=== PATIENT | female | born 1955 | race Hispanic/Latino ===

== ENCOUNTER 2017-04-17 09:19 | Outpatient (CLI) | payer MEDICARE, BC ==
--- NOTE | 2017-04-17 10:46 | RAD ---
TWO VIEWS CHEST: 04/17/2017 HISTORY: Dyspnea. COMPARISON: 03/02/2017 TECHNIQUE: PA and lateral views of the chest obtained. FINDINGS: Two views of the chest demonstrate increased pulmonary vascular congestion, compared to the previous exam. Cardiomegaly is seen. No evidence of effusions seen. IMPRESSION: Pulmonary vascular congestion and diffuse interstitial markings. This may represent changes of layla estive heart failure. There is also apparent dislocation of the right shoulder, suggesting a chronic right shoulder disloc ation. POS: [facility]
== END 2017-04-17 09:20 | disposition home or self-care (01) ==
LOC: RAD 09:19
PROVIDERS: ATTEND Internal Medicine Critical Care Medicine
DX: R06.00 Dyspnea, unspecified (principal); J81.1 Chronic pulmonary edema; J81.0 Acute pulmonary edema
CPT/HCPCS: 71020

== ENCOUNTER 2017-05-18 08:10 | Emergency (ER) | payer MEDICARE, BC | END 2017-05-18 09:31 | disposition home or self-care (01) | LOC: ERS 08:10 | DX: T21.22XA Burn of second degree of abdominal wall, initial encounter (principal); K21.9 Gastro-esophageal reflux disease without esophagitis; J45.909 Unspecified asthma, uncomplicated; G47.30 Sleep apnea, unspecified; I12.0 Hypertensive chronic kidney disease with stage 5 chronic kidney disease or end stage renal disease; N18.6 End stage renal disease; Z99.2 Dependence on renal dialysis; X16.XXXA Contact with hot heating appliances, radiators and pipes, initial encounter | CPT/HCPCS: 99283 ==

== ENCOUNTER 2017-05-30 22:56 | Emergency (ER) | payer MEDICARE, BC | END 2017-05-31 00:24 | disposition home or self-care (01) | LOC: ERS 22:56 | DX: L03.114 Cellulitis of left upper limb (principal); K21.9 Gastro-esophageal reflux disease without esophagitis; J45.909 Unspecified asthma, uncomplicated; I12.0 Hypertensive chronic kidney disease with stage 5 chronic kidney disease or end stage renal disease; N18.6 End stage renal disease; Z99.2 Dependence on renal dialysis | CPT/HCPCS: 99282 ==

== ENCOUNTER 2017-06-13 23:29 | Emergency (ER) | payer MEDICARE, BC | END 2017-06-13 23:58 | disposition home or self-care (01) | LOC: SCSER 23:29 | DX: L03.114 Cellulitis of left upper limb (principal); K21.9 Gastro-esophageal reflux disease without esophagitis; I12.0 Hypertensive chronic kidney disease with stage 5 chronic kidney disease or end stage renal disease; N18.6 End stage renal disease; E55.9 Vitamin D deficiency, unspecified; G47.30 Sleep apnea, unspecified; Z99.2 Dependence on renal dialysis | CPT/HCPCS: 99283 ==

== ENCOUNTER 2017-08-07 12:18 | Outpatient (CLI) | payer MEDICARE, BC | END 2017-08-07 12:19 | disposition home or self-care (01) | LOC: BICCT 12:18 | PROVIDERS: ATTEND Emergency Medicine | DX: M54.5 Low back pain (principal); M47.896 Other spondylosis, lumbar region; Z99.2 Dependence on renal dialysis | CPT/HCPCS: 72131 ==

== ENCOUNTER 2017-08-20 08:12 | Inpatient (IN) | payer MEDICARE, BC ==
--- NOTE | 2017-08-20 09:01 | CT ---
CT OF BRAIN PERFORMED WITHOUT CONTRAST ENHANCEMENT: History: Altered mental status. Speech difficulties. Comparison: 11-04-14 FINDINGS: Ventricular and cisternal system shows fairly age appropriate change. There are no signs of intracere bral hemorrhage or extraaxial fluid collections. Mastoid air cells and visualized sinuses are clear. IMPRESSION: No acute intracranial abnormalities. POS: [facility]
[2017-08-20 09:18] LABS: Mean Corpuscular HGB CONC 30.8 g/dL (32.0-36.0); Mean Corpuscular Hemoglobin 31.2 pg (27.0-31.0); Mean Platelet Volume 8.3 fL (7.4-10.4); Platelet Count 475 thou/uL (130-400); RBC Distribution Width 13.5 % (11.5-14.5); Red Blood Cell (RBC) Count 3.85 mill/uL (4.20-5.40); White Blood Cell (WBC) Count 13.8 thou/uL (4.8-10.8)
--- NOTE | 2017-08-20 09:22 | RAD ---
FRONTAL VIEW CHEST: Date: 08/20/17 COMPARISON: 09/28/16. INDICATION: Dyspnea. FINDINGS: Cardiac silhouette is enlarged with vascular congestion and interstitial edema bilaterally. Slight bl unting of the costophrenic sulci present. There is vascular calcification. Leads overlie the chest li miting detail. IMPRESSION: Evidence of fluid overload. Enlarged cardiac silhouette is present. Correlate for evidence of CHF. POS: [facility]
[2017-08-20 09:25] LABS: CKMB 2.1 ng/mL (0-6.6); Troponin I 0.025 ng/mL (< 0.028)
[2017-08-20 09:32] LABS: ALT (SGPT) 18 U/L (8-55); AST (SGOT) 19 U/L (5-34); Albumin 3.7 g/dL (3.4-4.8); Alkaline Phosphatase 69 U/L (40-150); Anion Gap 19 mmol/L (10-20); BUN (Urea Nitrogen) 34 mg/dL (9.8-20.1); Bilirubin, Total 0.4 mg/dL (0.2-1.2); CK (CPK) 151 U/L (29-168); Calc. Creatinine Clearance 0 mL/min (70-130); Calcium 11.1 mg/dL (7.8-10.44); Carbon Dioxide 28 mmol/L (23-31); Chloride 93 mmol/L (98-107); Estimated GFR-MDRD 5; Globulin 3.2 g/dL (2.4-3.5); Glucose 86 mg/dL (80-115); Lipase 11 U/L (8-78); Potassium 3.8 mmol/L (3.5-5.1); Protein, Total 6.9 g/dL (6.0-8.3); Sodium 136 mmol/L (136-145)
[2017-08-20 09:33] LABS: Band 1 % (5-11); Eosinophils 1 % (0-10); Lymphocytes 22 % (21-51); MDiff Complete? YES; Monocytes 9 % (0-10); Myelocyte 4 % (0-0); Neutrophil 62 % (42-75); Nucleated RBC 1 % (0); PLT Morphology Comment Appears Increased; RBC Morphology Normal
[2017-08-20 12:33] VITALS: BMI 58.6
--- NOTE | 2017-08-20 12:37 | PDOC.FPRHP ---
- History of Present Illness Chief Complaint: WEAKNESS History of Present Illness: 62 yo F w/ PMH incluidng HTN, ESRD, HLD, neuropathy, RICHAR, and morbid obesity. Woke up this morning feeling weak, able to transfer to chair but not walk on her own. She felt weak all over and denies focal weakness. She states she needed help getting out of bed. Weakness started about 10 days ago and has gotten progressively worse. She also notes that she has been having tremors specifically in her arms and legs which is new. She fell 2 times on 4 days ago, one mechanical getting out of bathtub and the other she was sitting down and missed the chair. She has some soreness in the L arm but denies any other pain. She states that she has had increased difficulty with speech both with thinking of what to say and dysarthria. No headaches, nausea, vomiting, or changes in vision. Family notices more confusion as of late. - Allergies/Adverse Reactions Allergies Allergy/AdvReac Type Severity Reaction Status Date / Time adhesive Allergy Verified 08/26/17 13:31 Latex, Natural Rubber Allergy Verified 08/26/17 13:31 levofloxacin [From Levaquin] Allergy Verified 08/26/17 13:31 povidone-iodine Allergy Verified 08/26/17 13:31 [From Betadine] soap [From Betadine] Allergy Verified 08/26/17 13:31 - Home Medications Medication Instructions Recorded Confirmed Type Budesonide-Formoterol [Symbicort 1 puff INH BID 02/28/14 08/26/17 History 160-4.5] Cholecalciferol (Vitamin D3) 2,000 unit PO DAILY 05/28/15 08/26/17 History [Vitamin D3] Montelukast Sodium [Singulair] 10 mg PO DAILY 05/28/15 08/26/17 History Primidone 50 mg PO TID 05/28/15 08/26/17 History Albuterol Sulfate [Proair 90 mcg IH Q6HR PRN 08/20/17 08/26/17 History Respiclick] Benzonatate 100 mg PO Q6HR 08/20/17 08/26/17 History Budesonide 0.5 mg IH BID 08/20/17 08/26/17 History Celecoxib 200 mg PO BID 08/20/17 08/26/17 History Fluticasone Propionate [Flonase 1 spray EA NARE HS 08/20/17 08/26/17 History Nasal [place]] Midodrine HCl [ProAmatine] 2.5 mg PO ASDIR 08/20/17 08/26/17 History Mupirocin 2% Cream [Bactroban 2% 1 applic TP BID 08/20/17 08/26/17 History Cream] Sulfamethoxazole/Trimethoprim 1 tab PO BID 08/20/17 08/26/17 History [Bactrim DS] hydrOXYzine [Atarax] 10 mg PO TID PRN 08/20/17 08/26/17 History predniSONE 2.5 mg PO QAM-WM 08/20/17 08/26/17 History Atorvastatin Calcium [Lipitor] 80 mg PO HS 30 Days #30 tab 08/21/17 08/26/17 Rx Clopidogrel Bisulfate [Plavix] 75 mg PO DAILY 90 Days #30 tab 08/21/17 08/26/17 Rx Cyanocobalamin (Vitamin B-12) 1,000 mcg PO DAILY 60 Days #60 tab 08/21/17 Rx [Vitamin B-12] Folic Acid [Folvite] 1 mg PO DAILY 30 Days #30 tab 08/21/17 08/26/17 Rx Lanthanum Carbonate [Fosrenol] 500 mg PO TID-WM 30 Days #30 08/21/17 08/26/17 Rx tab.chew Famotidine 20 mg PO BID 08/26/17 08/26/17 History Polyethylene Glycol 3350 [Miralax] 17 gm PO DAILY 08/26/17 08/26/17 History Umeclidinium [place] [Incruse 1 inh IH DAILY 08/26/17 08/26/17 History Ellipta] - History PMHx: HTN, Gerd, ESRD, HLD, RICHAR, Morbidly obesity, Asthma PSHx: Appendectomy, Splenectomy, FHx: Father- CAD 78 Mother- 70 infection?, patient unsure Social: no tobacco, no alcohol, no drugs - Review of Systems General: reports: fatigue. denies: fever/chills, weight/appetite/sleep changes Eyes: denies: vision changes ENT: denies: nasal congestion, rhinorrhea Respiratory: reports: shortness of breath (with activity). denies: cough Cardiovascular: reports: edema (little worse than usual). denies: chest pain, palpitation Gastrointestinal: reports: constipation (last bm 4 days ago). denies: nausea, vomiting, diarrhea Genitourinary: reports: other (denies hematuria). denies: dysuria, polyuria Skin: denies: rashes, itching Musculoskeletal: reports: arthritis/arthralgias. denies: tenderness (L shoulder ) Neurological: reports: other (no tingling, see hpi). denies: numbness Psychological: denies: anxiety, depression - Vital signs BP: 144/95 HR: 72 RR: 16 Tmax: 97.7 Pox: 99% on 2L Wt: 131.7 - Physical Exam Constitutional: NAD, awake, alert and oriented HEENT: normocephalic and atraumatic, PERRLA, EOMI, grossly normal vision Neck: supple (very large neck) Heart: RRR, normal S1/S2, no murmurs/rubs/gallops Lungs: CTAB, other (not moving much air, very mild wheezes) Abdomen: soft, non-tender, bowel sounds present Musculoskeletal: normal structure Neurological: CN II-XII intact, normal sensation, other (patient able to move all extremities, clear intention tremor in upper and lower extremities, able to lift legs off beds, cannot lift R arm off bed, able to lift L arm off bed, dysmetria/dysdiadocokinesia) Skin: capillary refill <2 seconds, other (large dressed wound on abdomen reportedly from heating pad injury) FMR H&P: Results - Labs Result Diagrams: 08/21/17 05:20 08/21/17 05:20 Lab results: WBC 13.8 thou/uL (4.8-10.8) H 08/20/17 08:45 Hgb 12.0 g/dL (12.0-16.0) 08/20/17 08:45 Hct 39.0 % (36.0-47.0) 08/20/17 08:45 MCV 101.0 fl (81.0-99.0) H 08/20/17 08:45 Plt Count 475 thou/uL (130-400) H 08/20/17 08:45 Band Neuts % (Manual) 1 % (5-11) L 08/20/17 08:45 Sodium 136 mmol/L (136-145) 08/20/17 08:45 Potassium 3.8 mmol/L (3.5-5.1) 08/20/17 08:45 Chloride 93 mmol/L (98-107) L 08/20/17 08:45 Carbon Dioxide 28 mmol/L (23-31) 08/20/17 08:45 BUN 34 mg/dL (9.8-20.1) H 08/20/17 08:45 Creatinine 7.56 mg/dL (0.6-1.1) H 08/20/17 08:45 Glucose 86 mg/dL (80-115) 08/20/17 08:45 Calcium 11.1 mg/dL (7.8-10.44) H 08/20/17 08:45 Total Bilirubin 0.4 mg/dL (0.2-1.2) 08/20/17 08:45 AST 19 U/L (5-34) 08/20/17 08:45 ALT 18 U/L (8-55) 08/20/17 08:45 Alkaline Phosphatase 69 U/L (40-150) 08/20/17 08:45 Creatine Kinase 151 U/L (29-168) 08/20/17 08:45 CK-MB (CK-2) 2.1 ng/mL (0-6.6) 08/20/17 08:45 B-Natriuretic Peptide 28.1 pg/mL (0-100) 08/20/17 08:45 Serum Total Protein 6.9 g/dL (6.0-8.3) 08/20/17 08:45 Albumin 3.7 g/dL (3.4-4.8) 08/20/17 08:45 Lipase 11 U/L (8-78) 08/20/17 08:45 FMR H&P: A/P - Problem List (1) Tremor Status: Acute Code(s): R25.1 - TREMOR, UNSPECIFIED (2) Anemia in chronic kidney disease (CKD) Status: Acute Code(s): N18.9 - CHRONIC KIDNEY DISEASE, UNSPECIFIED; D63.1 - ANEMIA IN CHRONIC KIDNEY DISEASE (3) CHF (congestive heart failure) Status: Acute Code(s): I50.9 - HEART FAILURE, UNSPECIFIED (4) Peripheral neuropathy Status: Acute Code(s): G62.9 - POLYNEUROPATHY, UNSPECIFIED (5) Physical deconditioning Status: Acute Code(s): R53.81 - OTHER MALAISE (6) BMI 50.0-59.9, adult Status: Chronic Code(s): Z68.43 - BODY MASS INDEX (BMI) 50-59.9 , ADULT (7) ESRD (end stage renal disease) on dialysis Status: Chronic Code(s): N18.6 - END STAGE RENAL DISEASE; Z99.2 - DEPENDENCE ON RENAL DIALYSIS (8) Gastroesophageal reflux disease Status: Chronic Code(s): K21.9 - GASTRO-ESOPHAGEAL REFLUX DISEASE WITHOUT ESOPHAGITIS Qualifiers: Esophagitis presence: esophagitis presence not specified Qualified Code(s) : K21.9 - Gastro-esophageal reflux disease without esophagitis (9) History of splenectomy Status: Chronic Code(s): Z90.81 - ACQUIRED ABSENCE OF SPLEEN (10) Hyperlipidemia Status: Chronic Code(s): E78.5 - HYPERLIPIDEMIA, UNSPECIFIED (11) RICHAR on CPAP Status: Chronic Code(s): G47.33 - OBSTRUCTIVE SLEEP APNEA (ADULT) (PEDIATRIC) ; Z99.89 - DEPENDENCE ON OTHER ENABLING MACHINES AND DEVICES (12) Progressive focal motor weakness Status: Acute Code(s): R53.1 - WEAKNESS - Plan # Generalized Weakness - CT head negative - Brain MRI - Neurology consulted - ASA -PT/OT/ST - rule out CVA # New onset tremors - neuro consulted - B12, folate, ESR, TSH # ESRD - Nephro Dr. Dempsey consulted - , , S # HLD - Atorvastatin # RICHAR - CPAP at night # DM2 - patient denies taking meds - check A1C # GERD - ranitidine # Subjective Asthma - Duonebs q4 PRN # History of Splenectomy - monitor for signs of infxn # PPx - SCDs - hold pharmacologic until Brain MRI resulted # FMR H&P: Upper Level - Pertinent history 62 year old female with a past medical history of ESRD on Thursday, , Thursday dialysis who presents for generalized weakness ongoing for several days. She had difficulty speaking yesterday. The only other symptoms she reports are fatigue and constipation. She denies fevers, chills, blurry vision, visual disturbance, rhinorrhea, nasal congestion, sore throat, chest pain, dyspnea, wheezing, cough, abdominal pain, nausea, vomiting, and diarrhea. Patient and her nephew who helps her at home report no facial droop, unilateral weakness/paralysis. - Pertinent findings Patient obese. Awake, alert, and appropriately interactive. Lungs CTAB. No LE edema. CN II-XII intact. No facial droop. Generalized weakness on exam. Abdomen soft, NT, ND, +BS. - Plan Date/Time: 08/20/17 1229 I, Jose Guadalupe Raymundo DO, have evaluated this patient and agree with findings/plan as outlined by analysis intern resident. Pertinent changes/additions are listed here. 62 year old female presents with: 1) Suspected TIA - Admit to stroke unit. MRI pending. CT negative. Stroke team consulted. Neurology consulted. Continue aspirin and statin 2) ESRD on dialysis with evidence of acute fluid overload - Will consult patient 's ecg technician, Dr. Dempsey. She is on Thursday, , and Thursday dialysis. Patient is on Home O2 and denies respiratory symptoms 3) Leukocytosis - No clear cause. CXR not consistent with pneumonia. Patient does not produce urine. Blood culture collected. Antibiotics if fever or symptoms present Attending Addendum - Attending Addendum Date/Time: 09/19/17 1312 I personally evaluated the patient and discussed the management with Dr. Ruiz on 08/20/16 I agree with the History, Examination, Assessment and Plan documented above with any addition or exceptions noted below. 62 yo F w/ PMH incluidng HTN, ESRD, HLD, neuropathy, RICHAR, and morbid obesity here with worsening weakness and decreasing mental alertness and responsiveness for Neuro eval.
[2017-08-20] MEDS ORDERED: Ondansetron ODT 4 MG TAB PO PRN (12:39)
[2017-08-20] MEDS ORDERED: Ondansetron HCl/PF 4 MG/2 ML Vial IVP PRN (12:39)
[2017-08-20] MEDS ORDERED: FLU VACC QS2017-18 36 mo. & older 0.5 ML SYRINGE IM ONE (12:45)
[2017-08-20] MEDS ORDERED: Milk Of Magnesia 30 ML UDCUP PO PRN (12:55)
[2017-08-20] MEDS ORDERED: hydrALAZINE 20 MG/ML VIAL SLOW IVP PRN (12:55)
[2017-08-20] MEDS ORDERED: Acetaminophen 325 MG TAB PO PRN (12:55)
[2017-08-20 14:02] LABS: Hemoglobin A1c 4.6 % (4.0-6.0)
--- NOTE | 2017-08-20 14:17 | MRI ---
MRI BRAIN NONCONTRAST: DATE: 08-20-17 HISTORY: 62-year-old female with altered mental status and dysarthria. Rule out CVA. FINDINGS: The ventricles are normal in size and configuration. There is no restricted diffusion, midline shift or any other mass effect, recent intraaxial hemorrhage, or extraaxial fluid collection. There are a few scattered punctate T2-hyperintensities in the cerebral white matter consistent with mild chronic ischemic white matter changes due to mild microvascular atherosclerosis. IMPRESSION: 1. Mild chronic ischemic white matter changes. 2. Otherwise negative. jn POS: [facility]
[2017-08-20 14:53] LABS: Folate (Folic Acid) 1.8 ng/mL (7.0-31.4)
[2017-08-20] MEDS ORDERED: Clopidogrel Bisulfate 75 MG TAB PO SCH (17:00)
[2017-08-20] MEDS: Budesonide 0.5 MG/2 ML NEB NEB SCH (18:29)
--- NOTE | 2017-08-20 19:36 | CON ---
DATE OF CONSULTATION: 08/20/2017 REFERRING PHYSICIAN: Hospitalist Service. IMPRESSION: Patient has some generalized weakness, which may be in part due to her hypercalcemia and vitamin deficiencies. I suspect she may have a component of hypotension that is contributing to her generalized asterixis. PLAN: 1. Vitamin supplementation. 2. Address hypercalcemia. 3. Monitor orthostatic blood pressures and adjust medications accordingly. HISTORY OF PRESENT ILLNESS: Ms. De La Vega is a 62-year-old female with a past history of end-sta ge renal disease on hemodialysis. She reports over the last week, she has gotten weaker in general a nd was having trouble getting up from a chair. She is barely able to walk. She has also noticed zechariah rly continuous jerking movements of her extremities. She does not report any headache, nausea, vomit ing, dizziness or fainting. She denies a history of hypertension, although this was in her chart. S he was brought in for evaluation. She had an MRI of the brain done, which was unremarkable. She is noted to be relatively low in both B12 and folate. Her calcium level was 10.1. She was not anemic. The remainder of her lab was otherwise unremarkable including a CPK. PAST MEDICAL HISTORY: As listed. ALLERGIES: NUMEROUS ADHESIVES and LEVAQUIN. SOCIAL HISTORY: No tobacco or illicit drug use. FAMILY HISTORY: Noncontributory. REVIEW OF SYSTEMS: No complaints of chest pain, but some shortness of breath. Positive for joint pa in in both of her knees. PHYSICAL EXAMINATION: GENERAL: She is a morbidly obese woman lying in bed having dialysis done. HEENT: Pupils equal. Conjunctivae are little muddy. Oropharynx is somewhat dry. Cranium normoceph alic and atraumatic. NECK: Supple. EXTREMITIES: No cyanosis present. NEUROLOGIC: She is alert and cooperative. Her speech is fluent and clear. Cranial nerves were inta ct. Motor exam showed antigravity strength in all 4 extremities with prominent asterixis. Gait was not testable. Sensation was intact to light touch. Could not really assess cerebellar function due to her general weakness and asterixis. IMAGING: MRI images were reviewed. SUMMARY: There does not appear to be an acute neurologic issue. I suspect this is more metabolic an d possibly related to some orthostatic hypotension.
--- NOTE | 2017-08-20 20:53 | CON ---
DATE OF CONSULTATION: 08/20/2017 HISTORY OF PRESENT ILLNESS: Ms. De La Vega is a 62-year-old female with ESRD, having maintenance hemodialysis, and was admitted for generalized weakness. According to the patient, she was not able to get out of bed. Weakness was generalized and she could hardly move about. For that reason, she w as sent to the ER for further evaluation. Essentially, a rule out CVA was done. She underwent a CT scan of the brain without findings of any a cute intracranial abnormalities. Brain MRI also showed no acute abnormalities except for a mild shipping and receiving assistant nevin ischemic white matter changes. We are being consulted for maintenance hemodialysis. Today is her regular dialysis day. I am contreras peterson dialyzing the patient, and I am at the bedside supervising her dialysis. I am attempting about 4 liter fluid removal. REVIEW OF SYSTEMS: Positive for generalized malaise, decreased motor strength with the lower extremi ties. No nausea, no vomiting. Positive for chronic shortness of breath. No chest pain, no diarrhea , no constipation, no abdominal pain. No fever or chills. No diplopia, no syncopal episode, no josué tochezia, no melena, no hematemesis. MEDICATIONS: DuoNeb q.4 hours p.r.n., Ecotrin 325 mg daily, Lipitor 80 mg at bedtime, Plavix 75 mg o nce a day, Colace 100 mg p.o. b.i.d., hydralazine 10 mg IV q.4 hours p.r.n., Zofran 4 mg IV q.6 hours p.r.n. HOME MEDICATIONS: Fosrenol 3 tablets q.i.d. with meals, midodrine 2.5 mg daily as needed, Singulair 10 mg every day, Lyrica 1-2 capsules p.o. t.i.d., primidone 50 mg p.o. t.i.d., Bactrim DS 1 tab b.i.d ., prednisone 2.5 mg q.a.m. PAST MEDICAL HISTORY: 1. ESRD, currently on maintenance hemodialysis. 2. Hyperlipidemia. 3. Morbid obesity. 4. Longstanding hypertension. 5. COPD. 6. Obstructive sleep apnea. 7. Hyperphosphatemia. 8. GERD. 9. Coronary artery disease. PAST SURGICAL HISTORY: 1. Status post PD catheter placement with subsequent removal. 2. Status post AV fistula placement. 3. Status post cuffed hemodialysis catheter placement. 4. Status post upper and lower GI endoscopy. 5. Status post exploratory laparotomy with splenectomy. 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 Lives i n [place]. Single, no children. Sedentary lifestyle. No IV drug abuse. Status post blood transfusio n. No alcohol intake. No history of smoking. FAMILY HISTORY: Positive family history of ESRD. ALLERGIES: None. TRAUMA: None. IMMUNIZATIONS: Up-to-date. HOSPITALIZATIONS: Please see past medical history. PHYSICAL EXAMINATION: VITAL SIGNS: Blood pressure is noted at 122/53, heart rate 71, respiratory rate 12, pulse ox 98%. GENERAL: Awake, alert, comfortable, morbidly obese. SKIN: Adequate turgor. HEENT: Pinkish conjunctivae. Anicteric sclerae. NECK: No neck mass, no carotid bruits, no JVD. CHEST: No deformities. LUNGS: Clear breath sounds. No wheezing, no crackles. HEART: Normal sinus rhythm. No murmur, no gallops, no rubs. ABDOMEN: Globular, soft, nontender. No masses. EXTREMITIES: No edema, no deformities. LABORATORY DATA: 08/20/2017, white count 13.8, hemoglobin 12. Sodium 136, potassium 3.8, chloride 9 3, carbon dioxide 28, BUN is 34, creatinine 7.56, calcium 11.1, AST 19, ALT 18. ASSESSMENT AND PLAN: 1. Mild hypercalcemia. We will simply observe this. Adjust binders as needed. Currently, she is n ot on any binders. She will probably need Fosrenol 1000 mg t.i.d. with meals. 2. End-stage renal disease, stable. Tolerating current hemodialysis regimen. Attempting 4 liter fl uid removal with this patient. Please note, she has a history of volume overload. For this reason, we are maxing out fluid removal. 3. Generalized malaise/weakness - unclear etiology. CAT scan was negative. If needed, we can consi ryan Neurology consult. It is possible that this could be related from some of her medications. Jackie dowd note, she takes primidone and Lyrica. We will hold that medication for the moment.
[2017-08-20] MEDS ORDERED: Atorvastatin Calcium 40 MG TAB PO SCH (21:00)
[2017-08-20] MEDS ORDERED: Midodrine HCl 5 MG TAB PO SCH (21:00)
[2017-08-20] MEDS: Docusate 100 MG CAP PO SCH (22:19)
[2017-08-20] MEDS: Pregabalin 50 MG CAP PO SCH (22:19)
--- NOTE | 2017-08-20 22:54 | ULT ---
CAROTID DUPLEX SONOGRAM 08/20/17 HISTORY: TIA. Vascular disease. FINDINGS: RIGHT: Minimal plaque. Color and spectral doppler evaluation, peak systolic velocity of 95 cm/s, and IC to C C ratio of 0.9 suggests no hemodynamically significant stenosis within the extracranial right ICA. An tegrade flow is present within the vertebral artery. LEFT: Minimal plaque. Color and spectral doppler evaluation, peak systolic velocity of 93 cm/s, and IC to C C ratio of 0.7 suggests no hemodynamically significant stenosis within the extracranial left ICA. Ant egrade flow is present within the vertebral artery. IMPRESSION: No sonographic evidence of significant extracranial ICA stenosis. POS: [facility]
[2017-08-21] MEDS ORDERED: diphenhydrAMINE 50 MG/ML VIAL IVP SCH (03:00)
[2017-08-21 06:36] LABS: Anion Gap 18 mmol/L (10-20); BUN (Urea Nitrogen) 17 mg/dL (9.8-20.1); Calc. Creatinine Clearance 23 mL/min (70-130); Calcium 10.4 mg/dL (7.8-10.44); Carbon Dioxide 26 mmol/L (23-31); Cardiac Risk 6.2 (Less than 4.5); Chloride 95 mmol/L (98-107); Cholesterol 192 mg/dl (< 200 Desired); Estimated GFR-MDRD 8; Glucose 77 mg/dL (80-115); HDL Cholesterol 31 mg/dL (>60 Neg Risk); LDL Cholesterol, Calculated 106 mg/dL; Potassium 4.2 mmol/L (3.5-5.1); Sodium 135 mmol/L (136-145); Triglycerides 274 mg/dL (Less than 150)
[2017-08-21 07:35] LABS: Hemoglobin 12.1 g/dL (12.0-16.0); Mean Corpuscular HGB CONC 31.6 g/dL (32.0-36.0); Mean Corpuscular Hemoglobin 32.1 pg (27.0-31.0); Platelet Count 471 thou/uL (130-400); RBC Distribution Width 13.8 % (11.5-14.5); Red Blood Cell (RBC) Count 3.76 mill/uL (4.20-5.40)
[2017-08-21 08:05] LABS: Band 2 % (5-11); Eosinophils 3 % (0-10); Lymphocytes 22 % (21-51); MDiff Complete? YES; Mean Platelet Volume 8.4 fL (7.4-10.4); Monocytes 8 % (0-10); Neutrophil 65 % (42-75); Nucleated RBC 1 % (0); PLT Morphology Comment Appears Increased; RBC Morphology Normal; White Blood Cell (WBC) Count 15.6 thou/uL (4.8-10.8)
[2017-08-21] MEDS: Pregabalin 50 MG CAP PO SCH ×2 (08:33→14:44)
[2017-08-21] MEDS: Docusate 100 MG CAP PO SCH (08:33)
--- NOTE | 2017-08-21 08:37 | PDOC.FM ---
- Subjective Subjective: This morning Mrs. De La Vega states she had some anxiety overnight which made her feel short of breath. She states this is a common occurrence at home, when it happens she takes a duoneb and this resolves it. She denies any pain this morning. She states she still feels weak but her tremors are improved. - Objective Vital Signs & Weight: Vital Signs (12 hours) Temp Pulse Pulse Resp BP BP Pulse Ox 08/21/17 08:04 88 22 H 90 L 08/21/17 07:20 84 127/60 08/21/17 07:05 97.9 F 83 20 107/52 L 84 L 08/21/17 04:00 98.4 F 88 16 109/55 L 90 L 08/21/17 01:08 93 L I&O: 08/20/17 08/21/17 08/22/17 06:59 06:59 06:59 Intake Total 120 Output Total 0 Balance 120 Result Diagrams: 08/21/17 05:20 08/21/17 05:20 <Candido Davila - Last Filed: 08/21/17 08:40> - Objective Vital Signs & Weight: Weight Admit Weight 131.723 kg Weight 131.723 kg I&O: 08/21/17 08/22/17 08/23/17 06:59 06:59 06:59 Intake Total 120 Output Total 0 Balance 120 Result Diagrams: 08/21/17 05:20 08/21/17 05:20 <Dinorah Cota - Last Filed: 08/22/17 09:14> Phys Exam - Physical Examination HEENT: PERRLA, moist MMs Neck: no nodes, full ROM large neck mild expiratory wheezes bilaterally, good air movement Cardiovascular: RRR, no significant murmur Gastrointestinal: soft, non-tender, positive bowel sounds Musculoskeletal: pulses present, edema present trace edema intention tremor persists, able to lift all four extremities off bed Psychiatric: normal affect, A&O x 3 Skin: no rash, normal turgor, cap refill <2 seconds <Candido Davila - Last Filed: 08/21/17 08:40> Dx/Plan (1) Tremor Code(s): R25.1 - TREMOR, UNSPECIFIED Status: Acute (2) Anemia in chronic kidney disease (CKD) Code(s): N18.9 - CHRONIC KIDNEY DISEASE, UNSPECIFIED; D63.1 - ANEMIA IN CHRONIC KIDNEY DISEASE Status: Acute (3) CHF (congestive heart failure) Code(s): I50.9 - HEART FAILURE, UNSPECIFIED Status: Acute (4) Peripheral neuropathy Code(s): G62.9 - POLYNEUROPATHY, UNSPECIFIED Status: Acute (5) Physical deconditioning Code(s): R53.81 - OTHER MALAISE Status: Acute (6) BMI 50.0-59.9, adult Code(s): Z68.43 - BODY MASS INDEX (BMI) 50-59.9 , ADULT Status: Chronic (7) ESRD (end stage renal disease) on dialysis Code(s): N18.6 - END STAGE RENAL DISEASE; Z99.2 - DEPENDENCE ON RENAL DIALYSIS Status: Chronic (8) Gastroesophageal reflux disease Code(s): K21.9 - GASTRO-ESOPHAGEAL REFLUX DISEASE WITHOUT ESOPHAGITIS Status: Chronic QualifierTitle: Esophagitis presence: esophagitis presence not specified Qualified Code(s): K21.9 - Gastro-esophageal reflux disease without esophagitis (9) History of splenectomy Code(s): Z90.81 - ACQUIRED ABSENCE OF SPLEEN Status: Chronic (10) Hyperlipidemia Code(s): E78.5 - HYPERLIPIDEMIA, UNSPECIFIED Status: Chronic (11) RICHAR on CPAP Code(s): G47.33 - OBSTRUCTIVE SLEEP APNEA (ADULT) (PEDIATRIC); Z99.89 - DEPENDENCE ON OTHER ENABLING MACHINES AND DEVICES Status: Chronic (12) Progressive focal motor weakness Code(s): R53.1 - WEAKNESS Status: Acute - Plan Plan: # Generalized Weakness - CT head negative - Brain MRI shows chronic changes - Neurology consulted - ASA -PT/OT/ST - TIA unlikely # New onset tremors - neuro consulted - B12/folate are low, will replace # ESRD - Nephro Dr. Dempsey consulted - T, TH, S - fluid removed in dialysis # HLD - Atorvastatin # RICHAR - CPAP at night # DM2 - patient denies taking meds - check A1C # GERD - ranitidine # Subjective Asthma - Duonebs q4 PRN # History of Splenectomy - monitor for signs of infxn # PPx - SCDs <Candido Davila - Last Filed: 08/21/17 08:40> Attending Addendum - Attending Addendum Date/Time: 08/22/17 0911 I personally evaluated the patient and discussed the management with Dr. Davila on 08/21/17. I agree with the History, Examination, Assessment and Plan documented above with any addition or exceptions noted below. Patient's generalized weakness likely multifactorial, initiated by medication interaction with Lyrica, electrolyte abnormalities caused by dialysis noncompliance, and concern for TIA. Now severely deconditioned. Will start secondary stroke prevention for TIA with 90 days of ASA/Plavix followed by lifetime treatment with ASA and statin. PT/OT eval today, pt would strongly benefit from inpt rehab. In addition, will hold Lyrica to see if symptoms resolve. <Dinorah Cota - Last Filed: 08/22/17 09:14>
[2017-08-21] MEDS ORDERED: Folic Acid 1 MG TAB PO SCH (09:00)
[2017-08-21] MEDS ORDERED: Clopidogrel Bisulfate 75 MG TAB PO SCH (09:00)
[2017-08-21] MEDS ORDERED: Cyanocobalamin (Vitamin B-12) 1,000 MCG TAB PO SCH (09:00)
[2017-08-21] MEDS ORDERED: Aspirin 325 mg Enteric Coated Tablet PO SCH (09:00)
[2017-08-21] MEDS: Budesonide 0.5 MG/2 ML NEB NEB SCH ×2 (10:46→18:05)
[2017-08-21 20:33] VITALS: BP 138/76; TEMP 97.8
--- NOTE | 2017-08-22 02:01 | DIS-2 ---
DATE OF ADMISSION: 08/20/2017 DATE OF DISCHARGE: 08/21/2017 RESIDENT: Dr. Candido Davila. ADMITTING ATTENDING: Dr. Fredy Bazzi. DISCHARGE ATTENDING: Dr. Dinorah Cota. CONSULTATIONS: Neurology. PROCEDURES: None. PRIMARY DIAGNOSIS: Generalized weakness. SECONDARY DIAGNOSES: Cerebrovascular accident history, new onset tremors, ESRD, hyperlipidemia, obst ructive sleep apnea, diabetes type 2, GERD, asthma, chronic kidney disease. DISCHARGE MEDICATIONS: Atorvastatin 80 mg, Plavix 75 mg for 90 days, vitamin D12, folic acid, Fosren ol 500 mg t.i.d., midodrine 2.5 mg, Benzonatate 100 mg, Symbicort, celecoxib, hydroxyzine, DuoNeb, mo ntelukast, primidone, ranitidine. DISCONTINUED MEDICATIONS: Calcium and Lyrica. HISTORY OF PRESENT ILLNESS AND HOSPITAL COURSE: This 62-year-old female with past medical history in cluding hypertension, ESRD, hyperlipidemia, neuropathy, obstructive sleep apnea, morbid obesity, pres ented to the ED after feeling excessively weak the morning of presentation. She says she felt weak a ll over and denied any focal weakness. She states she has new onset tremor, which has been going on for about 10 days and getting progressively worse. She states that she is unable to transfer from be d to wheelchair, which she was formally able to do, this has been going on for the last 10 days or so . She also thinks she has increased difficulty with speech both thinking what to say and dysarthria. Denies headaches, nausea, vomiting or changes in vision. Family has noticed more confusion as of l ate. CT head in the ER was negative. Brain MRI showed chronic CVA changes. Neurology came and visited th e patient and did not think this was neurological in nature, but rather metabolic. The patient's Lyr ica was discontinued as this is known to cause tremors in dialysis patients. Furthermore, the patien t was started on Fosrenol renal due to mildly high calcium at 10.4. The patient's B12 and folate wer e both low in the hospital. Therefore, she was started on supplementation. The patient is discharge d to inpatient rehabilitation. Family is in agreement with this plan. DISPOSITION: Stable. DISCHARGE INSTRUCTIONS: 1. Location: Home. 2. Diet: Regular. 3. Activity: As tolerated. 4. Follow up with Dr. Dinorah Cota in clinic within 1 week.
--- NOTE | 2017-08-22 13:04 | EKG ---
Test Reason : WEAK Blood Pressure : / mmHG Vent. Rate : 073 BPM Atrial Rate : 073 BPM P-R Int : 226 ms QRS Dur : 138 ms QT Int : 444 ms P-R-T Axes : 073 -07 088 degrees QTc Int : 489 ms Sinus rhythm with 1st degree A-V block Left bundle branch block Abnormal ECG Confirmed by CLIFF BETANCOURT, KAMRAN ([id number]), development editor MARIO ALFREDO ([id number]) on 08/22/2017 1:04:30 PM Referred By: Confirmed By:KAMRAN CORONADO MD
[2017-08-24 16:12] LABS: Folate,Hemolysate 224.9 ng/mL (Not Estab.); Hematocrit 36.8 % (34.0-46.6); RBC Folate Test Component 611 ng/mL (>498)
== END 2017-08-21 20:30 | DRG 640 ==
LOC: ERS 08:12 → 2SE 10:57 → OBSVTOIN 12:55
PROVIDERS: ADMIT Family Medicine; ATTEND Family Medicine
PROC: 5A1D70Z Performance of Urinary Filtration, Intermittent, Less than 6 Hours Per Day (ICD-10-PCS; principal; 2017-08-20)
DX: E83.52 Hypercalcemia (principal); N18.6 End stage renal disease; E11.22 Type 2 diabetes mellitus with diabetic chronic kidney disease; E11.40 Type 2 diabetes mellitus with diabetic neuropathy, unspecified; I12.0 Hypertensive chronic kidney disease with stage 5 chronic kidney disease or end stage renal disease; Z68.43 Body mass index [BMI] 50.0-59.9, adult; R53.1 Weakness; Z86.73 Personal history of transient ischemic attack (TIA), and cerebral infarction without residual deficits; R25.1 Tremor, unspecified; E78.5 Hyperlipidemia, unspecified; G47.33 Obstructive sleep apnea (adult) (pediatric); K21.9 Gastro-esophageal reflux disease without esophagitis; E66.01 Morbid (severe) obesity due to excess calories; T42.6X5A Adverse effect of other antiepileptic and sedative-hypnotic drugs, initial encounter; J44.9 Chronic obstructive pulmonary disease, unspecified; E83.39 Other disorders of phosphorus metabolism; I25.10 Atherosclerotic heart disease of native coronary artery without angina pectoris; Z88.8 Allergy status to other drugs, medicaments and biological substances; I95.1 Orthostatic hypotension; F41.9 Anxiety disorder, unspecified; D63.1 Anemia in chronic kidney disease; Z90.81 Acquired absence of spleen; Z99.81 Dependence on supplemental oxygen; I44.7 Left bundle-branch block, unspecified; I44.0 Atrioventricular block, first degree; Z99.2 Dependence on renal dialysis
CPT/HCPCS: 36415; 70450; 70551; 71045; 80048; 80053; 80061; 82553; 82607; 82746; 82747; 83036; 83690; 83880; 84443; 84484; 85025; 85652; 87077; 87149; 87186; 90471; 90682; 90935; 93005; 93880; 94640; A4216; G0008; G0257; G8978-GP-CM; G8979-GP-CJ; G8987-GO-CL; G8988-GO-CJ; G8996-GN-CJ; G8997-GN-CI; J1200; J7620; J7626; Q2036

== ENCOUNTER 2017-08-27 06:31 | Day surgery (SDC) | payer MEDICARE, BC ==
[2017-08-26 14:25] VITALS: BMI 58.3
[~2017-08-27 06:31] MED LIST: FLU VACC QS2017-18 36 mo. & older 0.5 ML SYRINGE IM ONE
[2017-08-27] MEDS ORDERED: Activase 2 MG VIAL CATH SCH (08:00)
[2017-08-27] MEDS ORDERED: Sterile Water 10 ML VIAL IVP SCH (08:00)
[2017-08-27 08:16] VITALS: BP 111/48; TEMP 97
[2017-08-27] MEDS ORDERED: Heparin 1,000 UNITS/ML VIAL ONE (12:04)
--- NOTE | 2017-08-27 13:04 | SPC ---
DIALYSIS FISTULOGRAM LEFT UPPER EXTREMITY PERCUTANEOUS BALLOON ANGIOPLASTY LEFT UPPER EXTREMITY DIALYSIS FISTULA: History: Renal failure. Poor function and difficult access of left upper extremity fistula. FINDINGS: After explaining the procedure and answering all questions, the left upper extremity was prepped and draped in the usual sterile fashion. Sterile technique, buffered local anesthesia, and a 22 gauge nee dle were used to carefully access the peripheral portion of a left upper arm dialysis fistula just ab ove the level of the antecubital fossa, directed towards the venous outflow. A 4 [place] micropuncture sheath was placed for serial imaging. The cephalic fistula is very tortuous and dilated without clot . Flow was somewhat slow due to the caliber of the fistula. The venous outflow and superior vena cava are widely patent. Initial attempts at reflux of the arterial anastomosis were not successful due to the dilatation of t he fistula and increased capacity of fluid. There was suggestion of stenosis near the arterial anasto mosis. A second access was obtained more centrally, directed towards the arterial end flow. A 5 [place] stiff micropuncture sheath was placed for limited imaging, then a short 6 [place] sheath was placed, throug h which a 5 [place] Berenstein catheter and .035 glide wire were used to advance the catheter to the c entral aspect of the fistula. Two areas of stenosis were seen just peripheral to the arterial anastom osis. A 5 mm x 4 cm balloon was then placed in the areas of fistula stricture near the antecubital fossa. F ull balloon profile was achieved, improving vessel diameter. Serial imaging showed the arterial anast omosis to be patent. Final imaging showed improved caliber and flow throughout the left upper arm fis halina. IMPRESSION: Technically successful balloon angioplasty of the arterial inflow of the left upper arm dialysis fist yanci. While flow was improved, the dilatation of the fistula and patient's relatively low blood pressu re and pulse result in less than vigorous flow throughout the fistula. There is no evidence of venous outflow limitation. POS: TOM
== END 2017-08-27 09:45 | disposition home or self-care (01) ==
LOC: SPEC 06:31
PROVIDERS: ATTEND Physical Medicine & Rehabilitation
PROC: B50W1ZZ Plain Radiography of Dialysis Shunt/Fistula using Low Osmolar Contrast (ICD-10-PCS; principal; 2017-08-27)
DX: I12.0 Hypertensive chronic kidney disease with stage 5 chronic kidney disease or end stage renal disease (principal); N18.6 End stage renal disease; G93.41 Metabolic encephalopathy; I25.10 Atherosclerotic heart disease of native coronary artery without angina pectoris; J44.9 Chronic obstructive pulmonary disease, unspecified; K21.9 Gastro-esophageal reflux disease without esophagitis; G47.33 Obstructive sleep apnea (adult) (pediatric); E78.5 Hyperlipidemia, unspecified; E66.9 Obesity, unspecified; Z68.43 Body mass index [BMI] 50.0-59.9, adult; Z88.1 Allergy status to other antibiotic agents; Z88.8 Allergy status to other drugs, medicaments and biological substances; Z91.040 Latex allergy status; Z91.048 Other nonmedicinal substance allergy status; Z79.899 Other long term (current) drug therapy; Z99.2 Dependence on renal dialysis
CPT/HCPCS: 36901; C1725; C1769; C1887; A4216; J1644; J2997

== ENCOUNTER 2017-09-24 07:33 | Inpatient (IN) | payer MEDICARE, BC ==
[2017-09-24 08:26] LABS: Hemoglobin 12.2 g/dL (12.0-16.0); Mean Corpuscular HGB CONC 32.3 g/dL (32.0-36.0); Mean Corpuscular Hemoglobin 34.1 pg (27.0-31.0); Mean Platelet Volume 8.3 fL (7.4-10.4); Platelet Count 449 thou/uL (130-400); RBC Distribution Width 13.9 % (11.5-14.5); Red Blood Cell (RBC) Count 3.57 mill/uL (4.20-5.40); White Blood Cell (WBC) Count 13.2 thou/uL (4.8-10.8)
[2017-09-24 08:41] LABS: ALT (SGPT) Less than 7 U/L (8-55); AST (SGOT) 10 U/L (5-34); Albumin 3.6 g/dL (3.4-4.8); Alkaline Phosphatase 117 U/L (40-150); Anion Gap 15 mmol/L (10-20); BUN (Urea Nitrogen) 37 mg/dL (9.8-20.1); Bilirubin, Total 0.4 mg/dL (0.2-1.2); Calc. Creatinine Clearance 0 mL/min (70-130); Calcium 10.7 mg/dL (7.8-10.44); Carbon Dioxide 31 mmol/L (23-31); Chloride 97 mmol/L (98-107); Estimated GFR-MDRD 6; Globulin 3.1 g/dL (2.4-3.5); Glucose 103 mg/dL (80-115); Potassium 4.2 mmol/L (3.5-5.1); Protein, Total 6.7 g/dL (6.0-8.3); Sodium 139 mmol/L (136-145)
[2017-09-24 08:59] LABS: #Basophils 0.1 thou/uL (0.0-0.2); #Eosinphils 0.4 thou/uL (0.0-0.7); #Monocytes 1.2 thou/uL (0.11-0.59); #Neutrophils 9.6 thou/uL (1.40-6.50); %Basophils 0.4 % (0.0-1.0); %Eosinophils 2.9 % (0.0-10.0); %Lymphocytes 14.8 % (21.0-51.0); %Monocytes 9.3 % (0.0-10.0); %Neutrophils 72.6 % (42.0-75.0); Anisocytosis SLIGHT = 6-15 cells (100X) (0-5/hpf); MDiff Complete? YES; Macrocytosis SLIGHT = 6-15 cells (100X) (0-5/hpf); PLT Morphology Comment Appears Increased
[2017-09-24] MEDS ORDERED: Piperacillin/Tazobactam 3.375 GM VIAL ONE (10:11)
[2017-09-24] MEDS ORDERED: Fluconazole 100 MG TAB PO SCH (10:30)
--- NOTE | 2017-09-24 10:38 | RAD ---
AP VIEW CHEST: INDICATIONS: History of fever and infection of the dialysis shunt. FINDINGS: There is cardiomegaly with mild pulmonary vascular congestion. No focal consolidation is evident. T here is scattered calcified granuloma. There is a stable, anteriorly dislocated right shoulder. The re is distal clavicle osteolysis involving both clavicles that appears similar to the prior exam. IMPRESSION: 1. Stable cardiomegaly. 2. Stable findings of prior granulomatous disease. 3. Stable anteriorly dislocated right glenohumeral joint. POS: ONDINA
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
[2017-09-24] MEDS ORDERED: Ondansetron HCl/PF 4 MG/2 ML Vial IVP PRN ×2 (13:52→14:01)
[2017-09-24] MEDS ORDERED: Ondansetron ODT 4 MG TAB PO PRN ×2 (13:52→14:01)
[2017-09-24] MEDS ORDERED: Acetaminophen 325 MG TAB PO PRN ×2 (13:52→15:28)
[2017-09-24] MEDS ORDERED: Acetaminophen 650 MG Suppository PR PRN (14:01)
[2017-09-24 14:11] VITALS: BMI 56.5
[2017-09-24] MEDS ORDERED: traMADol HCl 50 MG TAB PO PRN (16:09)
[2017-09-24] MEDS ORDERED: PROVENTIL INHALER 6.7 G (200 INHALATIONS) INH PRN (16:09)
[2017-09-24] MEDS ORDERED: Methocarbamol 500 MG TAB PO PRN (16:09)
--- NOTE | 2017-09-24 16:13 | CON ---
DATE OF CONSULTATION: 09/24/2017 HISTORY OF PRESENT ILLNESS: Ms. De La Vega is a 62-year-old female with ESRD - on maintenance hem odialysis and admitted for left upper extremity cellulitis. She was seen in the dialysis unit and at that time has received IV antibiotics. However, the lesion seems to have worsened. The patient has now been admitted for further management. We are consulted for maintenance hemodialysis. She is cu rrently undergoing dialysis, and I am at the bedside supervising her dialysis. REVIEW OF SYSTEMS: Denies any fever or chills. Positive for left upper extremity erythema and excor iation. No nausea, no vomiting. Appetite is fair. Energy level is fair. No abdominal pain, no alex ss hematuria, no dysuria, no urinary frequency. Occasional joint pains. No headache, no diplopia, n o sore throat, no nasal discharge. PAST MEDICAL HISTORY: 1. ESRD - on maintenance hemodialysis. 2. Hypertension. 3. GERD. 4. Asthmatic bronchitis. 5. Hyperlipidemia. 6. Obstructive sleep apnea. 7. Neuropathy. 8. History of chronic hyperphosphatemia. 9. Coronary artery disease 10. Longstanding hypertension. 11. Morbid obesity. PAST SURGICAL HISTORY: Status post PD catheter placement with subsequent removal. Status post explo ratory laparotomy with splenectomy. Status post upper and lower GI endoscopy. Status post cuffed he modialysis catheter placement. Status post AV fistula placement. 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 Education: High school. Lives in [place]. No alcohol intake. No history of smoking. Status post blood transfusion. Sedentary life style. No IV drug abuse. Single. No children. ALLERGIES: None. TRAUMA: None. IMMUNIZATIONS: Up to date. HOSPITALIZATIONS: Please see past medical history. FAMILY HISTORY: No family history of ESRD. PHYSICAL EXAMINATION: VITAL SIGNS: Blood pressure is noted at 131/63, heart rate is 77, respiratory rate 18, temperature 9 7.9 and pulse ox 98% on 2 liters. GENERAL: Awake, alert, supine, comfortable, not in distress, morbidly obese. SKIN: Adequate turgor. HEENT: She has pinkish conjunctivae, anicteric sclerae. NECK: No neck mass, no carotid bruits, no JVD. CHEST: No deformities. LUNGS: Clear breath sounds. No wheezing, no crackles heard. HEART: Normal sinus rhythm. No murmur, no gallops, no rubs. ABDOMEN: Globular, soft and nontender. No masses. EXTREMITIES: No edema. She has erythema on the right upper extremity. MEDICATIONS: Medication of 09/24/2017; currently, on Pepcid 20 mg p.o. b.i.d., status post fluconazo le, status post Zosyn and status post vancomycin. LABORATORY DATA: Laboratories of 09/24/2017; white count 13.2, hemoglobin 12.2 and hematocrit 37.8. Sodium 139, potassium 4.2, chloride 97, carbon dioxide 31, BUN 37, creatinine 7.32, glucose 103, samanta cium is 10.7, AST 10 and ALT less than 7. ASSESSMENT AND PLAN: 1. Left upper extremity cellulitis, status post Zosyn and vancomycin as well as fluconazole. The lucero doug will be seen by ID to get further recommendations whether to treat with IV antibiotics. 2. End-stage renal disease, stable. Currently, undergoing hemodialysis, still attempting 3-4 liters of fluid removal as tolerated. No changes will be made with this current hemodialysis regimen. Rev iew of the last Kt/V suggests she is adequately dialyzed with the current dialysis regimen. 3. Mild hypercalcemia. Continue to observe. Recheck base met and CBC in a.m.
[2017-09-24] MEDS: Lanthanum Carbonate 500 mg Tablet PO SCH (17:55)
[2017-09-24] MEDS ORDERED: Vancomycin Sliding Scale 1 EACH FS ONE (18:00)
[2017-09-24] MEDS ORDERED: Vancomycin HCl 750 MG in Sodium Chloride 0.9% 250 ML 250 ML IVPB SCH (18:00)
[2017-09-24] MEDS ORDERED: HOLD VANCOMYCIN FOR LEVEL >20 FS SCH (18:00)
[2017-09-24] MEDS ORDERED: Vancomycin HCl 1 GM in Premix Bag 1 BAG IVPB SCH (18:00)
[2017-09-24] MEDS ORDERED: Vancomycin HCl 1.25 GM in Sodium Chloride 0.9% 250 ML 250 ML IVPB SCH (18:00)
[2017-09-24] MEDS ORDERED: Vancomycin HCl 500 MG in Sodium Chloride 0.9% 100 ML IVPB SCH (18:00)
[2017-09-24] MEDS: Mometasone/Formoterol 120 PUFF INHALER INH SCH (19:04)
[2017-09-24] MEDS ORDERED: Mometasone Furoate 120 PUFF 220 MCG INH SCH (21:00)
[2017-09-24] MEDS: cefTRIAXone\\ROCEPHIN 1 GM, Syringe 0.4 ML in Sterile Water 9.6 ML SLOW IVP SCH (21:40)
[2017-09-24] MEDS: CeleCOXIB 100 MG CAP PO SCH (21:42)
[2017-09-24] MEDS: Famotidine 20 MG TAB PO SCH (21:42)
[2017-09-24] MEDS: Nortriptyline HCl 25 MG CAP PO SCH (21:43)
[2017-09-24] MEDS: Atorvastatin Calcium 40 MG TAB PO SCH (21:44)
[2017-09-24] MEDS: Primidone 50 MG TAB PO SCH (21:44)
[2017-09-24] MEDS: Mupirocin 2% Ointment 22 GM Tube TOP SCH (23:55)
[2017-09-25] MEDS: Ipratropium Bromide 2.5 ml Neb NEB SCH ×5 (00:53→23:40)
[2017-09-25 05:19] LABS: #Eosinphils 0.5 thou/uL (0.0-0.7); #Lymphocytes 2.4 thou/uL (1.20-3.40); #Monocytes 1.3 thou/uL (0.11-0.59); #Neutrophils 6.9 thou/uL (1.40-6.50); %Basophils 0.1 % (0.0-1.0); %Eosinophils 4.5 % (0.0-10.0); %Lymphocytes 21.6 % (21.0-51.0); %Monocytes 11.8 % (0.0-10.0); Hemoglobin 11.4 g/dL (12.0-16.0); Mean Corpuscular HGB CONC 31.6 g/dL (32.0-36.0); Mean Corpuscular Hemoglobin 32.7 pg (27.0-31.0); Mean Platelet Volume 7.9 fL (7.4-10.4); Platelet Count 400 thou/uL (130-400); RBC Distribution Width 13.6 % (11.5-14.5); Red Blood Cell (RBC) Count 3.49 mill/uL (4.20-5.40); White Blood Cell (WBC) Count 11.1 thou/uL (4.8-10.8)
[2017-09-25 05:27] LABS: Anion Gap 14 mmol/L (10-20); BUN (Urea Nitrogen) 16 mg/dL (9.8-20.1); Calc. Creatinine Clearance 25 mL/min (70-130); Calcium 10.1 mg/dL (7.8-10.44); Carbon Dioxide 29 mmol/L (23-31); Chloride 99 mmol/L (98-107); Estimated GFR-MDRD 9; Glucose 74 mg/dL (80-115); Potassium 3.7 mmol/L (3.5-5.1); Sodium 138 mmol/L (136-145)
[2017-09-25] MEDS: hydrOXYzine 10 MG TAB PO PRN ×3 (06:55→22:27)
[2017-09-25] MEDS: Mometasone/Formoterol 120 PUFF INHALER INH SCH ×2 (07:24→18:41)
[2017-09-25] MEDS: Midodrine HCl 5 MG TAB PO SCH (08:25)
[2017-09-25] MEDS: Lanthanum Carbonate 500 mg Tablet PO SCH ×3 (08:49→17:10)
[2017-09-25] MEDS: Primidone 50 MG TAB PO SCH ×3 (08:49→22:27)
[2017-09-25] MEDS: CeleCOXIB 100 MG CAP PO SCH ×2 (08:50→21:48)
[2017-09-25] MEDS: Cyanocobalamin (Vitamin B-12) 1,000 MCG TAB PO SCH (08:50)
[2017-09-25] MEDS: predniSONE 5 MG TAB PO SCH (08:50)
[2017-09-25] MEDS: Folic Acid 1 MG TAB PO SCH (08:50)
[2017-09-25] MEDS: Montelukast Sodium 10 mg Tablet PO SCH (08:50)
[2017-09-25] MEDS: Mupirocin 2% Ointment 22 GM Tube TOP SCH (08:51)
[2017-09-25] MEDS ORDERED: Oseltamivir 6 MG/ML ORAL SUSP PO SCH (09:00)
--- NOTE | 2017-09-25 09:19 | PDOC.FM ---
- Subjective Subjective: No acute events overnight. Pt was taken to dialysis yesterday and they were able to access via av fistula. Pt reports itching this am. Given hydroxizine w/ o relief. Denies cp, sob, nvdc, fever, chills, sweats. She is asking "when can [ she] go home." - Objective Vital Signs & Weight: Vital Signs (12 hours) Temp Pulse Resp BP Pulse Ox 09/25/17 08:00 98.3 F 84 16 93 L 09/25/17 07:32 98.3 F 84 16 108/64 93 L 09/25/17 07:24 80 16 09/25/17 07:17 80 16 09/25/17 04:00 98.2 F 94 20 100/52 L 93 L 09/25/17 00:58 94 L 09/25/17 00:53 75 16 94 L Weight Admit Weight 127.006 kg Weight 127.006 kg I&O: 09/24/17 09/25/17 09/26/17 06:59 06:59 06:59 Intake Total 240 Output Total 3500 Balance -3260 Result Diagrams: 09/25/17 04:17 09/25/17 04:17 <Damien Urbina - Last Filed: 09/25/17 09:17> - Objective Vital Signs & Weight: Vital Signs (12 hours) Temp Pulse Resp BP Pulse Ox 09/25/17 11:51 98.2 F 73 18 133/80 92 L 09/25/17 08:00 98.3 F 84 16 93 L 09/25/17 07:32 98.3 F 84 16 108/64 93 L 09/25/17 07:24 80 16 09/25/17 07:17 80 16 09/25/17 04:00 98.2 F 94 20 100/52 L 93 L Weight Admit Weight 127.006 kg Weight 127.006 kg I&O: 09/24/17 09/25/17 09/26/17 06:59 06:59 06:59 Intake Total 240 Output Total 3500 Balance -3260 Result Diagrams: 09/25/17 04:17 09/25/17 04:17 <Keyur Funes - Last Filed: 09/25/17 13:22> Phys Exam - Physical Examination Constitutional: NAD morbidly obese HEENT: PERRLA, sclera anicteric Neck: no nodes, full ROM Respiratory: no wheezing, no rales, no rhonchi, clear to auscultation bilateral Cardiovascular: RRR, no significant murmur, no rub Gastrointestinal: soft, non-tender, no distention, positive bowel sounds Musculoskeletal: pulses present Neurological: non-focal, moves all 4 limbs Deviation from normal: erythematous papules/putules over LUE w/ dry crusting. Nonpainful. <Damien Urbina - Last Filed: 09/25/17 09:17> Dx/Plan (1) Cellulitis of left arm Code(s): L03.114 - CELLULITIS OF LEFT UPPER LIMB Status: Acute (2) ESRD (end stage renal disease) on dialysis Code(s): N18.6 - END STAGE RENAL DISEASE; Z99.2 - DEPENDENCE ON RENAL DIALYSIS Status: Chronic (3) CHF (congestive heart failure) Code(s): I50.9 - HEART FAILURE, UNSPECIFIED Status: Chronic (4) Asthma Code(s): J45.909 - UNSPECIFIED ASTHMA, UNCOMPLICATED Status: Chronic (5) Benign hypertension Code(s): I10 - ESSENTIAL (PRIMARY) HYPERTENSION Status: Chronic (6) Hyperlipidemia Code(s): E78.5 - HYPERLIPIDEMIA, UNSPECIFIED Status: Chronic (7) RICHAR on CPAP Code(s): G47.33 - OBSTRUCTIVE SLEEP APNEA (ADULT) (PEDIATRIC); Z99.89 - DEPENDENCE ON OTHER ENABLING MACHINES AND DEVICES Status: Chronic (8) Obesity hypoventilation syndrome Code(s): E66.2 - MORBID (SEVERE) OBESITY WITH ALVEOLAR HYPOVENTILATION Status : Chronic - Plan Plan: 1) Cellulitis of lt arm: Pts erythema is unchanged. Will cont current abx for now. ID has been consulted, appreciate recommendations. 2) ESRD on dialysis: Dr. zarate consulted. Will cont current TRSa dialysis [facility] 3) RICHAR on cpap in addition to pickwickian :CPAP QHS 4) Asthma; chronic with hypoxia on home O2. -O2 requirements unchanged, monitor sats and maintain >92%. Cont home medications 5) HTN: BP stable, monitor. 6) HLD: Home meds. No change. 7) Peripheral neuropathy: hold lyrica as pt developed tremor. Cont b12 and folate. -cont plan of care 8) HFpEF: from prior echo studies; no evidence of acute exacerbation. Will titrate medications once acute cellulitis is resolved. Cont plan of care. 9) Pruritis; chornic, cont hydroxizine. Add benadryl and calamine lotion while in hospital. Hold tramadol. <Damien Urbina - Last Filed: 09/25/17 09:17> Attending Addendum - Attending Addendum Date/Time: 09/25/17 1321 I personally evaluated the patient and discussed the management with Dr. Urbina. I agree with the History, Examination, Assessment and Plan documented above with any addition or exceptions noted below. Patient admitted for possible cellulitis over her HD access site that has been persistent despite multiple antibiotic courses in the outpatient setting. She reports this has been here for months. Awaiting ID recs on treatment and may speak to Dr. Bell about biopsy over the access site. WBC downtrending and patient afebrile. Continue antibiotics currently. <Keyur Funes - Last Filed: 09/25/17 13:22>
[2017-09-25] MEDS ORDERED: diphenhydrAMINE 2% CREAM 28.4 GM TUBE TOP PRN (09:26)
--- NOTE | 2017-09-25 09:36 | PRG ---
DATE OF SERVICE: 09/25/2017 SUBJECTIVE: Ms. De La Vega is a 62-year-old female with ESRD and admitted for ? of left upper ext remity cellulitis/dermatitis. ID has been consulted. The plan is to do a skin biopsy. She received hemodialysis yesterday without any difficulty. We were able to avoid the skin lesion with regards t o the cannulation of her AV fistula. No other complaints today. She does complain of chronic itchin g. PHYSICAL EXAMINATION: VITAL SIGNS: Blood pressure 108/64, heart rate 84, respiratory rate 16, temperature 98.3, pulse ox 9 3%. GENERAL: Noted to be awake, sitting comfortable, obese. SKIN: Adequate turgor. HEENT: She has pinkish conjunctivae, anicteric sclerae. NECK: No neck mass, no carotid bruits, no JVD. CHEST: No deformities. LUNGS: Clear breath sounds. No wheezing. No crackles. HEART: Normal sinus rhythm. No murmur, no gallops or rubs. ABDOMEN: Globular, soft, nontender, no masses. EXTREMITIES: No edema, no deformities. MEDICATIONS: 09/25/2017 - Reviewed. LABORATORY: 09/25/2017 - White count 11.1, hemoglobin 11.4. Sodium 138, potassium 3.7, chloride 99, carbon dioxide 29, BUN 16, creatinine 4.65, calcium 10.1. ASSESSMENT AND PLAN: 1. End-stage renal disease, stable. Continue current Thursday, , and Thursday dialysis regim en. Fluid removal only as tolerated using no or minimal heparin. 2. Hyperphosphatemia currently on PhosLo. 3. Left upper extremity skin lesion - unclear if this is simple dermatitis versus cellulitis. ID lazaro s been consulted. The plan is to do a skin punch biopsy. Overall, continue supportive care. Recheck base met and CBC in a.m.
[2017-09-25] MEDS ORDERED: cefTRIAXone\\ROCEPHIN 1 GM in Sodium Chloride 0.9% 100 ML IVPB SCH (11:00)
[2017-09-25] MEDS: Calamine/Zinc Oxide 177 ML LOTION TP PRN ×2 (11:09→21:52)
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
[2017-09-25] MEDS: diphenhydrAMINE 12.5 MG/5 ML UDCUP PO PRN (12:19)
[2017-09-25] MEDS ORDERED: Lidocaine 1% w/Epinephrine 1:100K 20 ML VIAL FS SCH (15:30)
--- NOTE | 2017-09-25 20:27 | HP ---
HISTORY: Jenyn De La Vega is a 62-year-old morbidly obese female, 4 feet 11 inches and 280 pounds, 56 BMI . Dialysis patient, diabetic that had seen in the past providing dialysis access and repairing aneur ysms. Her left upper arm fistula has lasted for more than 20 years. She has had a drill procedure. She has been admitted because of access difficulty. She has multiple skin lesions around the left u pper extremity access. She has had a past repair of an aneurysm. I have been asked by Dr. Washington to perform punch biopsies for both histopathology and microbiology for lichen planus and eosinophilia, d rug eruption evaluation. PHYSICAL EXAMINATION: GENERAL: The patient is alert and oriented. The patient is morbidly obese. EXTREMITIES: Left upper arm fistula, good thrill and bruit. SKIN: She has skin lesions over the left upper arm, not consistent with cellulitis. There are multi ple raised lesions. ASSESSMENT AND PLAN: Left upper arm skin lesion as well as right arm. We will plan punch biopsies f or histopathology and a tissue culture at the bedside. We will use local anesthesia.
[2017-09-25] MEDS: Nortriptyline HCl 25 MG CAP PO SCH (21:47)
[2017-09-25] MEDS: Famotidine 20 MG TAB PO SCH (21:47)
[2017-09-25] MEDS: Atorvastatin Calcium 40 MG TAB PO SCH (21:48)
[2017-09-25] MEDS: cefTRIAXone\\ROCEPHIN 1 GM, Syringe 0.4 ML in Sterile Water 9.6 ML SLOW IVP SCH (21:49)
[2017-09-25] MEDS: Betamethasone 0.1% Cream 45 GM TUBE TOP SCH (21:50)
[2017-09-25] MEDS: Nystatin Powder 15 GM BOT TOP SCH (21:51)
[2017-09-26 04:19] LABS: #Eosinphils 0.5 thou/uL (0.0-0.7); #Lymphocytes 2.6 thou/uL (1.20-3.40); #Monocytes 1.2 thou/uL (0.11-0.59); #Neutrophils 5.9 thou/uL (1.40-6.50); %Basophils 0.3 % (0.0-1.0); %Eosinophils 4.4 % (0.0-10.0); %Lymphocytes 25.1 % (21.0-51.0); %Monocytes 12.1 % (0.0-10.0); %Neutrophils 58.1 % (42.0-75.0); Hemoglobin 11.3 g/dL (12.0-16.0); Mean Corpuscular HGB CONC 32.9 g/dL (32.0-36.0); Mean Corpuscular Hemoglobin 33.7 pg (27.0-31.0); Platelet Count 399 thou/uL (130-400); RBC Distribution Width 13.5 % (11.5-14.5); Red Blood Cell (RBC) Count 3.36 mill/uL (4.20-5.40); White Blood Cell (WBC) Count 10.2 thou/uL (4.8-10.8)
[2017-09-26] MEDS: hydrOXYzine 10 MG TAB PO PRN (04:19)
[2017-09-26 04:31] LABS: Anion Gap 14 mmol/L (10-20); BUN (Urea Nitrogen) 28 mg/dL (9.8-20.1); Calc. Creatinine Clearance 17 mL/min (70-130); Calcium 10.7 mg/dL (7.8-10.44); Carbon Dioxide 30 mmol/L (23-31); Chloride 98 mmol/L (98-107); Estimated GFR-MDRD 6; Glucose 73 mg/dL (80-115); Potassium 3.8 mmol/L (3.5-5.1); Sodium 138 mmol/L (136-145)
[2017-09-26] MEDS: Midodrine HCl 5 MG TAB PO SCH (05:45)
[2017-09-26] MEDS: Ipratropium Bromide 2.5 ml Neb NEB SCH ×2 (06:50→14:12)
[2017-09-26] MEDS: Mometasone/Formoterol 120 PUFF INHALER INH SCH (06:52)
[2017-09-26] MEDS: Lanthanum Carbonate 500 mg Tablet PO SCH ×2 (08:18→14:52)
[2017-09-26] MEDS: diphenhydrAMINE 12.5 MG/5 ML UDCUP PO PRN (08:19)
[2017-09-26] MEDS: CeleCOXIB 100 MG CAP PO SCH (08:22)
[2017-09-26] MEDS: Montelukast Sodium 10 mg Tablet PO SCH (08:22)
[2017-09-26] MEDS: Folic Acid 1 MG TAB PO SCH (08:22)
[2017-09-26] MEDS: Cyanocobalamin (Vitamin B-12) 1,000 MCG TAB PO SCH (08:23)
[2017-09-26] MEDS: predniSONE 5 MG TAB PO SCH (08:23)
[2017-09-26] MEDS: Betamethasone 0.1% Cream 45 GM TUBE TOP SCH (08:29)
[2017-09-26] MEDS: Nystatin Powder 15 GM BOT TOP SCH (08:30)
[2017-09-26 10:15] LABS: Antinuclear AB Negative (Negative); Complement-C3 (Sendout) 150 mg/dL (82-167); Complement-C4 (Sendout) 25 mg/dL (14-44); DSDNA Autoabs (FARR) Sendout 1 IU/mL (0-9); Smooth Muscle Total Antibodies <0.2 AI (0.0-0.9); Thyroid Peroxidase Ab-Sendout 8 IU/mL (0-34); U1 RNP/snRNP IgG Autoabs <0.2 AI (0.0-0.9)
[2017-09-26 10:35] LABS: HBSAg Index 0.19 S/CO (0-0.99); Hep B Surf Ag Non-Reactive S/CO (NonReactive)
[2017-09-26] MEDS: Primidone 50 MG TAB PO SCH ×2 (11:23→14:46)
[2017-09-26 11:54] LABS: Hep B Surf AB Reactive (NonReactive)
[2017-09-26 11:55] LABS: HBSAB Concentration 24.88 mIU/mL
--- NOTE | 2017-09-26 12:17 | PRG ---
DATE OF SERVICE: 09/26/2017 SERVICE: Renal Medicine. SUBJECTIVE: Ms. De La Vega is a 62-year-old female with ESRD and being followed up by [facility] for maintenance hemodialysis. She was initially admitted for ? of left upper extremity cellulitis . ID has been consulted. A punch biopsy of the skin lesion was done and the feeling is that this ma y not be an infectious process. She is currently at the dialysis and I am supervising her and I am a t the bedside. She voices no new complaints except for chronic pruritus. I have discussed the pruri tus issue. I told her we could consider referring her to Dermatology at [facility] for UV light treatment. The patient denies any chest pain or shortness of breath. OBJECTIVE: VITAL SIGNS: Blood pressure is noted at 108/68, heart rate 84, respiratory rate 20, temperature 98.4 and pulse ox 97%. GENERAL: Noted to be awake, alert and comfortable, not in distress. SKIN: Adequate turgor. HEENT: Pinkish conjunctivae, anicteric sclerae. NECK: No neck mass, no carotid bruits, no JVD. CHEST: No deformities. LUNGS: Clear breath sounds. No wheezing, no crackles. HEART: Normal sinus rhythm. No murmur, no gallops, no rubs. ABDOMEN: Globular, soft and nontender. No masses. EXTREMITIES: No edema, no deformities. MEDICATIONS: Medications of 09/26/2017 reviewed. LABORATORY DATA: Laboratories of 09/26/2017; white count 10.2, hemoglobin 11.3 and hematocrit 34.4. Sodium 138, potassium 3.8, chloride 98, carbon dioxide 30, BUN 20, creatinine 6.84 and calcium is 10 .7. ASSESSMENT AND PLAN: 1. End-stage renal disease - stable. Continue current Thursday, , and Thursday hemodialysis regimen. Again, fluid removal only as tolerated. 2. Chronic pruritus, supportive care. Eventual referral to [facility] for UV light if the joy ent will agree with this. 3. Left upper extremity skin lesion - unclear etiology. Skin biopsy has been done yesterday, awaiti ng results. Overall, agree with current management.
--- NOTE | 2017-09-26 13:12 | PDOC.FM ---
- Subjective Subjective: No acute events overnight. Pt denies fever, chills, sweats, nvdc. Does report pruritis, diffuse. Has had chronic pruritis in the past. - Objective Vital Signs & Weight: Vital Signs (12 hours) Temp Pulse Resp BP BP Pulse Ox 09/26/17 08:00 98.4 F 84 20 108/68 97 09/26/17 06:50 83 20 94 L 09/26/17 04:00 98.2 F 83 20 141/79 H 94 L Weight Admit Weight 127.006 kg Weight 127.006 kg I&O: 09/25/17 09/26/17 09/27/17 06:59 06:59 06:59 Intake Total 240 720 Output Total 3500 Balance -3260 720 Result Diagrams: 09/26/17 03:38 09/26/17 03:38 <Damien Urbina - Last Filed: 09/26/17 13:33> - Objective Vital Signs & Weight: Weight Admit Weight 280 lb Weight 280 lb I&O: 09/26/17 09/27/17 09/28/17 06:59 06:59 06:59 Intake Total 720 Balance 720 Result Diagrams: 09/26/17 03:38 09/26/17 03:38 <Jeffery Goddard - Last Filed: 09/27/17 11:49> Phys Exam - Physical Examination Constitutional: NAD HEENT: PERRLA, sclera anicteric Neck: no nodes, no JVD, supple Respiratory: no wheezing, no rales, no rhonchi, clear to auscultation bilateral Cardiovascular: RRR, no significant murmur, no rub Gastrointestinal: soft, non-tender, no distention, positive bowel sounds Musculoskeletal: no edema, pulses present Neurological: non-focal, moves all 4 limbs Deviation from normal: dry dressing in place over LUE s/p biopsy <Damien Urbina - Last Filed: 09/26/17 13:33> Dx/Plan (1) Cellulitis of left arm Code(s): L03.114 - CELLULITIS OF LEFT UPPER LIMB Status: Ruled-out (2) ESRD (end stage renal disease) on dialysis Code(s): N18.6 - END STAGE RENAL DISEASE; Z99.2 - DEPENDENCE ON RENAL DIALYSIS Status: Chronic (3) CHF (congestive heart failure) Code(s): I50.9 - HEART FAILURE, UNSPECIFIED Status: Chronic (4) Asthma Code(s): J45.909 - UNSPECIFIED ASTHMA, UNCOMPLICATED Status: Chronic (5) Benign hypertension Code(s): I10 - ESSENTIAL (PRIMARY) HYPERTENSION Status: Chronic (6) Hyperlipidemia Code(s): E78.5 - HYPERLIPIDEMIA, UNSPECIFIED Status: Chronic (7) RICHAR on CPAP Code(s): G47.33 - OBSTRUCTIVE SLEEP APNEA (ADULT) (PEDIATRIC); Z99.89 - DEPENDENCE ON OTHER ENABLING MACHINES AND DEVICES Status: Chronic (8) Obesity hypoventilation syndrome Code(s): E66.2 - MORBID (SEVERE) OBESITY WITH ALVEOLAR HYPOVENTILATION Status : Chronic - Plan Plan: 1) Cellulitis of lt arm: cultures are negative thus far. Biopsy pending for vasculitis vs ai vs drug eruption dc abx and dc home. 2) ESRD on dialysis: dialyzed today, ok for dc to home. Resume normal dialysis schedule. 3) RICHAR on cpap in addition to pickwickian :CPAP QHS dc home today 4) Asthma; chronic with hypoxia on home O2. -O2 requirements unchanged, monitor sats and maintain >92%. Cont home medications, stable. DC home today 5) HTN: BP stable, monitor. DC home today 6) HLD: Stable, dc home 7) Peripheral neuropathy: hold lyrica as pt developed tremor. Cont b12 and folate. -cont plan of care, DC home today 8) HFpEF: from prior echo studies; no evidence of acute exacerbation. Will titrate medications once acute cellulitis is resolved. Cont plan of care. Stable. DC home today 9) Pruritis; chornic, cont hydroxizine. Add benadryl and calamine lotion while in hospital. Hold tramadol. OP workup. DC home today. <Damien Urbina - Last Filed: 09/26/17 13:33> Attending Addendum - Attending Addendum Date/Time: 09/27/17 7068 I personally evaluated the patient and discussed the management with Dr. Urbina I agree with the History, Examination, Assessment and Plan documented above with any addition or exceptions noted below. Cellulitis is improving and planned for discharge. <Jeffery Goddard - Last Filed: 09/27/17 11:49>
[2017-09-26 13:50] VITALS: TEMP 99.4
[2017-09-26 15:10] VITALS: BP 97/67
--- NOTE | 2017-09-28 13:15 | DIS-2 ---
LOCATION: [facility] [place], [place]. DATE OF ADMISSION: 09/24/2017 DATE OF DISCHARGE: 09/26/2017 ADMITTING ATTENDING: Dr. Ximena Cobb. DISCHARGE ATTENDING: Dr. Jeffery Goddard. CO-SIGNER: Jeffery Goddard M.D. CONSULTATIONS 1. Nephrology, Dr. Jorge Dempsey. 2. Infectious Disease, Dr. Nathan Washington. 3. General Surgery, Dr. Bell. PROCEDURES: 1. Chest x-ray done on 09/24/2017 showed stable cardiomegaly. Stable findings were of prior granulomatous disease. Stable anterior dislocated right glenohumeral joint. 2. Punch biopsy done on 09/25/2017 for evaluation of left AV fistula lesions versus infection. This was submitted for pathology review and the final pathology results are still pending. PRIMARY DIAGNOSES: 1. Skin eruption, unknown cause. 2. Cellulitis, left arm ruled out. SECONDARY DIAGNOSES: 1. End-stage renal disease on dialysis. 2. Chronic asthma. 3. Obstructive sleep apnea. 4. Morbid obesity. 5. Hyperlipidemia. 6. Peripheral neuropathy. 7. Pruritus. 8. Anemia of chronic kidney disease. 9. Hypertension. 10. Congestive heart failure. DISCHARGE MEDICATIONS: 1. Betamethasone cream 1 gram p.o. topical b.i.d. over the affected area. 2. Nystatin 1 gram topical b.i.d. over the affected area. 3. ProAir 90 mcg q.6 hours p.r.n. 4. Atorvastatin 40 mg p.o. at bedtime. 5. Symbicort 160/4.5 one puff b.i.d. 6. Celecoxib 200 mg p.o. b.i.d. 7. Plavix 75 mg daily. 8. Codeine/guaifenesin 100-10, 2.5 mL p.o. q.6 hours p.r.n. 9. Vitamin B12, 1000 mcg daily. 10. Fluticasone 50 mcg at bedtime. 11. Folic acid 1 mg p.o. daily. 12. Hydroxyzine 10 mg p.o. t.i.d. 13. DuoNeb 3 mL q.i.d. 14. Fosrenol 500 mg p.o. t.i.d. with meals. 15. Robaxin 500 mg p.o. t.i.d. 16. Midodrine 2.5 mg p.o. every 6 hours daily. 17. Singulair 10 mg p.o. daily. 18. Nortriptyline 50 mg p.o. at bedtime. 19. Prednisone 2.5 mg p.o. q.a.m. 20. Lyrica 50 mg p.o. t.i.d. and 100 mg p.o. at bedtime p.r.n. 21. Mysoline 50 mg p.o. t.i.d. 22. Silver sulfadiazine 1 application topical b.i.d. 23. Spiriva 18 mcg daily. DISCONTINUED MEDICATIONS: 1. Ancef. 2. Bactrim. 3. Tramadol. HISTORY OF PRESENT ILLNESS/HOSPITAL COURSE: The patient is a 62-year-old female , who originally presented to the ED after she went to her dialysis facility and they told her that they could not access her left arm fistula due to an overlying infection. She has had this problem since approximately 05/2017, has seen physician multiple times and was treated with Bactrim on and off for several months. She was ultimately referred to Infectious Disease for further evaluation and was scheduled on the day of admission to Infectious Disease in the outpatient setting. However, she was admitted for concern of infection or cellulitis over the left AV fistula and started on IV antibiotics including her clindamycin and Levaquin. She was seen by Infectious Disease, who said there is no concern for bacterial infection, although fungal could not be ruled out and ultimately recommended that a biopsy be performed over the left fistula. General Surgery was consulted for the punch biopsies of the lesions and this was sent for pathological review, which is still pending at this time. Per Infectious Disease recommendations, the patient was started on steroid cream to be applied over the affected area as described above. Of note, the patient did report itching throughout this hospital stay and this has been a chronic problem. It was recommended that the patient see her primary care provider for further evaluation of the chronic pruritus. The main concern for over the left AV fistula was eosinophilic eruption versus lichen planus; however, the pathological results are still pending at this time and have not resulted. Overall, the patient had an uncomplicated hospital course and while she was in the hospital, the inpatient dialysis was able to access previously fistula and continue her dialysis routine of Thursday, , and Thursday. DISPOSITION: The patient left the hospital in stable condition. DISCHARGE INSTRUCTIONS: 1. Location: Home. 2. Diet: Heart healthy. 3. Activity: Ad jordan. 4. Follow up with primary care provider in 7-10 days following discharge. 5. Follow up with Infectious Disease in 2-3 weeks after discharge. 6. Follow up with Nephrology as scheduled. KULWANT
--- NOTE | 2017-09-28 20:10 | OP ---
PREOPERATIVE DIAGNOSES: Skin lesions upper extremities, end-stage renal disease, morbid obesity stat us post subtotal parathyroidectomy for secondary hyperparathyroidism. POSTOPERATIVE DIAGNOSES: Skin lesions upper extremities, end-stage renal disease, morbid obesity, st atus post subtotal parathyroidectomy for secondary hyperparathyroidism. PROCEDURES PERFORMED: Multiple punch biopsies, skin lesions, left upper arm for histopathology and m icrobiology. SURGEON: Loki Bell M.D. ANESTHESIA: 1% Xylocaine with epinephrine. PROCEDURE IN DETAIL: With the patient at bedside in her room, her left upper extremity was prepared with ChloraPrep. Local anesthetic infiltrated into the skin and subcutaneous tissue, 1% Xylocaine wi th epinephrine was used. Multiple biopsies taken from the central and periphery of the skin lesion s ubmitting 3 punch biopsies 6 mm for tissue cultures and 3 for histopathology. I personally labeled t he specimen, carried to the Laboratory Department placing 3 of the punch biopsies in formalin for pat hology and 3 in sterile urine specimen cup for culture.
--- NOTE | 2017-10-07 15:17 | EKG ---
Test Reason : Blood Pressure : / mmHG Vent. Rate : 077 BPM Atrial Rate : 077 BPM P-R Int : 198 ms QRS Dur : 102 ms QT Int : 408 ms P-R-T Axes : 036 002 043 degrees QTc Int : 461 ms Normal sinus rhythm Confirmed by JACQUELINE CLAYTON ([id number]), acquisition editor PIERRE WARE ([id number]) on 10/07/2017 3:17:14 PM Referred By: Confirmed By:JACQUELINE CLAYTON
== END 2017-09-26 15:18 | disposition home or self-care (01) | DRG 314 ==
LOC: ERS 07:33 → 2NO 13:26 → T4-B 09-25 17:54
PROVIDERS: ADMIT Student in an Organized Health Care Education/Training Program; ATTEND Student in an Organized Health Care Education/Training Program
PROC: 0HBCXZX Excision of Left Upper Arm Skin, External Approach, Diagnostic (ICD-10-PCS; principal; 2017-09-24)
PROC: 5A1D70Z Performance of Urinary Filtration, Intermittent, Less than 6 Hours Per Day (ICD-10-PCS; 2017-09-24)
DX: T82.898A Other specified complication of vascular prosthetic devices, implants and grafts, initial encounter (principal); N18.6 End stage renal disease; I13.2 Hypertensive heart and chronic kidney disease with heart failure and with stage 5 chronic kidney disease, or end stage renal disease; E11.22 Type 2 diabetes mellitus with diabetic chronic kidney disease; E66.2 Morbid (severe) obesity with alveolar hypoventilation; Z68.43 Body mass index [BMI] 50.0-59.9, adult; I50.30 Unspecified diastolic (congestive) heart failure; E83.39 Other disorders of phosphorus metabolism; Z99.2 Dependence on renal dialysis; Y71.3 Surgical instruments, materials and cardiovascular devices (including sutures) associated with adverse incidents; R21 Rash and other nonspecific skin eruption; E83.52 Hypercalcemia; G62.9 Polyneuropathy, unspecified
CPT/HCPCS: 36415; 36416; 71045; 80048; 80053; 83605; 85025; 86160; 86225; 86235; 86376; 86706; 87040; 87070; 87205; 87340; 88305; 88321; 88346; 88350; 90935; 93005; 94640; 94664; 94760; 96365; 96367; A4216; G0257; J0696; J2001; J2543; J3370; J7644

== ENCOUNTER 2018-02-19 11:22 | Day surgery (SDC) | payer MEDICARE, BC ==
[2018-02-18 17:00] VITALS: BMI 53.7
[2018-02-19 13:32] LABS: Anion Gap 17 mmol/L (10-20); BUN (Urea Nitrogen) 22 mg/dL (9.8-20.1); Calc. Creatinine Clearance 19 mL/min (70-130); Calcium 9.9 mg/dL (7.8-10.44); Carbon Dioxide 28 mmol/L (23-31); Chloride 96 mmol/L (98-107); Estimated GFR-MDRD 8; Glucose 76 mg/dL (80-115); Potassium 4.5 mmol/L (3.5-5.1); Sodium 136 mmol/L (136-145)
--- NOTE | 2018-02-19 14:47 | OP ---
PREOPERATIVE DIAGNOSES: 1. Gastroesophageal reflux disease. 2. Chronic nausea. 3. Rectal bleeding. 4. History of colon polyps. PROCEDURE: After informed consent was obtained, the patient placed in the left lateral decubitus pos ition. Anesthesia was administered per the Anesthesia Department. Forward-viewing endoscope was ins erted into the esophagus under direct visualization with ease and passed to the second portion of the duodenum with ease. Second portion of the duodenum and duodenal bulb were normal. The pylorus, ant rum, body, fundus, and cardia were normal except for some mild erosions in the gastric antrum. Biops ies were taken x4. Retroflexion in the stomach was normal. The esophagus was normal throughout. ASSESSMENT: 1. Mild erosive antritis - status post biopsy. 2. Otherwise, normal esophagogastroduodenoscopy. RECOMMENDATIONS: 1. Await histopathology. 2. Begin proton pump inhibitor. 3. Proceed with colonoscopy. PROCEDURE IN DETAIL: After informed consent was obtained, the patient placed in the left lateral dec ubitus position. Anesthesia was administered per the Anesthesia Department. Forward-viewing endosco pe was inserted into the cecum with ease. The cecum, ileocecal valve, and appendiceal orifice were n ormal except for a small polyp. This polyp was removed with snare electrocautery. The prep was exce llent. The ascending was normal. The transverse was normal. Descending was normal except for a sma ll polyp that was ablated with a snare polypectomy. In the rectum, there was a small polyp. This wa s removed with snare polypectomy. Left-sided diverticula were noted. Retroflexion in the rectum chad wed internal hemorrhoids. ASSESSMENT: 1. Three small colon polyps - status post polypectomy. 2. Left-sided diverticulosis coli. 3. Internal hemorrhoids. RECOMMENDATIONS: Await histopathology.
== END 2018-02-19 15:30 | disposition home or self-care (01) ==
LOC: SDC 11:22
PROVIDERS: ATTEND Internal Medicine Gastroenterology
PROC: 0DB68ZX Excision of Stomach, Via Natural or Artificial Opening Endoscopic, Diagnostic (ICD-10-PCS; principal; 2018-02-19)
PROC: 0DBM8ZX Excision of Descending Colon, Via Natural or Artificial Opening Endoscopic, Diagnostic (ICD-10-PCS; 2018-02-19)
PROC: 0DBP8ZX Excision of Rectum, Via Natural or Artificial Opening Endoscopic, Diagnostic (ICD-10-PCS; 2018-02-19)
PROC: 0DBC8ZX Excision of Ileocecal Valve, Via Natural or Artificial Opening Endoscopic, Diagnostic (ICD-10-PCS; 2018-02-19)
DX: K62.5 Hemorrhage of anus and rectum (principal); D12.0 Benign neoplasm of cecum; K62.1 Rectal polyp; K29.50 Unspecified chronic gastritis without bleeding; K25.9 Gastric ulcer, unspecified as acute or chronic, without hemorrhage or perforation; K57.30 Diverticulosis of large intestine without perforation or abscess without bleeding; K64.8 Other hemorrhoids; K21.9 Gastro-esophageal reflux disease without esophagitis; E11.9 Type 2 diabetes mellitus without complications; Z79.02 Long term (current) use of antithrombotics/antiplatelets; Z79.51 Long term (current) use of inhaled steroids; Z79.52 Long term (current) use of systemic steroids; Z79.899 Other long term (current) drug therapy; Z88.1 Allergy status to other antibiotic agents; Z88.8 Allergy status to other drugs, medicaments and biological substances; Z91.040 Latex allergy status; Z91.048 Other nonmedicinal substance allergy status
CPT/HCPCS: 36415; 80048; 88305; 88312

== ENCOUNTER 2018-05-27 18:25 | Observation (INO) | payer MEDICARE, BC ==
[2018-05-27 19:14] LABS: #Eosinphils 0.4 thou/uL (0.0-0.7); #Lymphocytes 2.6 thou/uL (1.20-3.40); #Monocytes 1.3 thou/uL (0.11-0.59); #Neutrophils 8.7 thou/uL (1.40-6.50); %Basophils 0.4 % (0.0-1.0); %Eosinophils 3.1 % (0.0-10.0); %Monocytes 9.9 % (0.0-10.0); %Neutrophils 66.7 % (42.0-75.0); Hemoglobin 15.9 g/dL (12.0-16.0); Mean Corpuscular HGB CONC 33.4 g/dL (32.0-36.0); Mean Corpuscular Hemoglobin 33.7 pg (27.0-31.0); Mean Platelet Volume 9.1 fL (7.4-10.4); Platelet Count 365 thou/uL (130-400); RBC Distribution Width 14.1 % (11.5-14.5); Red Blood Cell (RBC) Count 4.72 mill/uL (4.20-5.40); White Blood Cell (WBC) Count 13.1 thou/uL (4.8-10.8)
[2018-05-27 19:35] LABS: ALT (SGPT) 18 U/L (8-55); AST (SGOT) 18 U/L (5-34); Albumin 4.1 g/dL (3.4-4.8); Alkaline Phosphatase 227 U/L (40-150); Anion Gap 16 mmol/L (10-20); BUN (Urea Nitrogen) 19 mg/dL (9.8-20.1); Bilirubin, Total 0.5 mg/dL (0.2-1.2); CK (CPK) 138 U/L (29-168); Calc. Creatinine Clearance 0 mL/min (70-130); Calcium 10.3 mg/dL (7.8-10.44); Carbon Dioxide 32 mmol/L (23-31); Chloride 97 mmol/L (98-107); Estimated GFR-MDRD 10; Glucose 111 mg/dL (80-115); Lipase 57 U/L (8-78); Potassium 4.3 mmol/L (3.5-5.1); Protein, Total 8.1 g/dL (6.0-8.3); Sodium 141 mmol/L (136-145)
[2018-05-27] MEDS ORDERED: Pantoprazole 40 MG VIAL ONE (19:59)
--- NOTE | 2018-05-27 19:59 | PDOC.FPRHP ---
- History of Present Illness Chief Complaint: Chest pain History of Present Illness: Ms. De La Vega presents to the ED with CP beginning 30 mins [employer] UN[employer]. She reports that she was folding laundry when she began to feel a pulling sensation in her left chest area and arm pain. She has had pulling/cramping sensations in her chest before. She denies worsening shortness of breath or BAJWA , palpitations, new weakness/tingling, headache or vision changes. She had dialysis as scheduled today. She has seen Dr. Eagle in the past without any positive stress or echos, she reports all of those tests were done approx 3- 4 years ago. ED Course: CBC, CMP, Trop, BNP, Lipase, CK, CXR, EKG Protonix, ASA, duoneb - Allergies/Adverse Reactions Allergies Allergy/AdvReac Type Severity Reaction Status Date / Time adhesive Allergy Rash Verified 05/28/18 02:04 Latex, Natural Rubber Allergy Rash Verified 05/28/18 02:04 levofloxacin [From Levaquin] Allergy Rash Verified 05/28/18 02:04 soap [From Betadine] Allergy Rash Verified 05/28/18 02:04 - Home Medications Medication Instructions Recorded Confirmed Type Atorvastatin Calcium [Lipitor] 80 mg PO HS 09/24/17 05/28/18 History Clopidogrel Bisulfate [Plavix] 75 mg PO DAILY 09/24/17 05/28/18 History Cyanocobalamin (Vitamin B-12) 1,000 mcg PO DAILY 09/24/17 05/28/18 History [Vitamin B-12] Midodrine HCl [ProAmatine] 5 mg PO Q2DAYS 09/24/17 05/28/18 History Montelukast Sodium [Singulair] 10 mg PO DAILY 09/24/17 05/28/18 History Nortriptyline HCl [Pamelor] 50 mg PO HS PRN 09/24/17 05/28/18 History Pregabalin [Lyrica] 50 mg PO TID 09/24/17 05/28/18 History Primidone [Mysoline] 50 mg PO TID 09/24/17 05/28/18 History predniSONE [Prednisone] 2.5 mg PO QAM 09/24/17 05/28/18 History Budesonide 0.5 mg IH BID 02/18/18 05/28/18 History Calcium Acetate 667 mg PO TID-WM 02/18/18 05/28/18 History Acetaminophen [Tylenol Regular 650 mg PO Q4H PRN tab 05/28/18 Rx Strength] Budesonide-Formoterol [Symbicort 2 puff INH BID 05/28/18 05/28/18 History 160-4.5] Celecoxib 200 mg PO BID 05/28/18 05/28/18 History Fluticasone Propionate [Flonase 1 spray EA NARE HS 05/28/18 05/28/18 History Nasal [place]] Folic Acid 1 mg PO DAILY 05/28/18 05/28/18 History Ipratropium/Albuterol Sulfate 3 ml NEB BID PRN 05/28/18 05/28/18 History Lanthanum Carbonate [Fosrenol] 1,000 mg PO TID-WM 05/28/18 05/28/18 History - History PMHx: ESRD on dialysis, HTN, GERD, asthma PSHx: appy, choley, hernia repairx2, spleenectomy FHx: CA, DMII Social: no TAD, nephew at bedside - Review of Systems General: reports: fatigue. denies: fever/chills, weight/appetite/sleep changes Eyes: denies: eye pain, vision changes ENT: denies: nasal congestion Respiratory: reports: shortness of breath, exercise intolerance. denies: cough , congestion Cardiovascular: reports: chest pain. denies: palpitation, edema Gastrointestinal: reports: constipation. denies: nausea, vomiting, diarrhea Skin: denies: rashes, lesions Musculoskeletal: denies: pain, tenderness Neurological: denies: numbness, syncope - Vital signs BP: 120/91 HR: 91 RR: 18 Tmax: 98.5 Pox: 97% on RA Wt: 121.50 - Physical Exam Constitutional: NAD, awake, alert and oriented HEENT: grossly normal vision, grossly normal hearing, MMM Neck: supple, trachea midline Chest: no lesions, other (tender to palpation over left chest) Heart: RRR, normal S1/S2, no murmurs/rubs/gallops, pulses present, no edema, other (difficult to auscultate) Lungs: CTAB, no respiratory distress, good air movement Abdomen: soft, non-tender Musculoskeletal: normal structure, normal tone Neurological: no focal deficit Skin: no rash/lesions, good turgor Heme/Lymphatic: no unusual bruising or bleeding Psychiatric: normal mood and affect FMR H&P: Results - Labs Result Diagrams: 05/28/18 03:34 05/28/18 03:34 Lab results: WBC 13.1 thou/uL (4.8-10.8) H 05/27/18 18:58 Hgb 15.9 g/dL (12.0-16.0) 05/27/18 18:58 Hct 47.7 % (36.0-47.0) H 05/27/18 18:58 MCV 101.0 fL (78.0-98.0) H 05/27/18 18:58 Plt Count 365 thou/uL (130-400) 05/27/18 18:58 Neutrophils % 66.7 % (42.0-75.0) 05/27/18 18:58 Sodium 141 mmol/L (136-145) 05/27/18 18:58 Potassium 4.3 mmol/L (3.5-5.1) 05/27/18 18:58 Chloride 97 mmol/L (98-107) L 05/27/18 18:58 Carbon Dioxide 32 mmol/L (23-31) H 05/27/18 18:58 BUN 19 mg/dL (9.8-20.1) 05/27/18 18:58 Creatinine 4.44 mg/dL (0.6-1.1) H 05/27/18 18:58 Glucose 111 mg/dL (80-115) 05/27/18 18:58 Calcium 10.3 mg/dL (7.8-10.44) 05/27/18 18:58 Total Bilirubin 0.5 mg/dL (0.2-1.2) 05/27/18 18:58 AST 18 U/L (5-34) 05/27/18 18:58 ALT 18 U/L (8-55) 05/27/18 18:58 Alkaline Phosphatase 227 U/L (40-150) H 05/27/18 18:58 Creatine Kinase 138 U/L (29-168) 05/27/18 18:58 Serum Total Protein 8.1 g/dL (6.0-8.3) 05/27/18 18:58 Albumin 4.1 g/dL (3.4-4.8) 05/27/18 18:58 Lipase 57 U/L (8-78) 05/27/18 18:58 FMR H&P: A/P - Problem List (1) Atypical chest pain Status: Resolved Code(s): R07.89 - OTHER CHEST PAIN (2) Chronic obstructive asthma with exacerbation Status: Acute Code(s): J44.1 - CHRONIC OBSTRUCTIVE PULMONARY DISEASE W (ACUTE ) EXACERBATION; J45.901 - UNSPECIFIED ASTHMA WITH (ACUTE) EXACERBATION (3) ESRD (end stage renal disease) on dialysis Status: Chronic Code(s): N18.6 - END STAGE RENAL DISEASE; Z99.2 - DEPENDENCE ON RENAL DIALYSIS (4) Peripheral neuropathy Status: Acute Code(s): G62.9 - POLYNEUROPATHY, UNSPECIFIED (5) Physical deconditioning Status: Acute Code(s): R53.81 - OTHER MALAISE (6) Gastroesophageal reflux disease Status: Chronic Code(s): K21.9 - GASTRO-ESOPHAGEAL REFLUX DISEASE WITHOUT ESOPHAGITIS Qualifiers: Esophagitis presence: esophagitis presence not specified Qualified Code(s) : K21.9 - Gastro-esophageal reflux disease without esophagitis (7) Hyperlipidemia Status: Chronic Code(s): E78.5 - HYPERLIPIDEMIA, UNSPECIFIED - Plan Atypical chest pain - reproducible, tugging sensation, heart score 4 - initial troponin neg, trendx3 - TTE and Stress in AM - NPO after midnight Asthma - possible cause of pain, continue home meds - duonebs q4hr PRN ESRD on dialysis - nephrology consulted, appreciate Recs - AM CMP peripheral neuropathy - continue home meds GERD - continue home meds obesity hypoventilation syndrome - aware, O2 monitoring, keep sats>88% physical deconditioning - aware, turn frequently Code: full ppx: [facility] Disposition/LOS: monitor on tele, stress/echo in AM FMR H&P: Upper Level - Pertinent history 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 Only to add pt's chest pain resolved upon my examination. - Plan Date/Time: 05/27/181956 I, Eros Partida, have evaluated this patient and agree with findings/plan as outlined by university internship resident. Pertinent changes/additions are listed here. 1. Atypical chest pain - Negative troponins, but concerning T-wave inversion in ED. Pain resolved with PPI and also reproducible on L chest. 2. Asthma -possible cause of pain, continue home meds; duonebs q4hr PRN 3. ESRD on dialysis - Dr Dempsey nephrology consulted; did have HD today w/o complication. 4. GERD - Pain did resolve with PPI. Continue PPI and avoid greasy/spicy foods. 5. RICHAR/Obesity hypoventilation syndrome; O2 monitoring, goal sats >88% 6. Physical deconditioning 7. Peripheral neuropathy - Continue Lyrica 8. HLD: Continue home meds Attending Addendum - Attending Addendum Date/Time: 05/31/18 1029 I personally evaluated the patient and discussed the management with Dr. Preston at time of admission. I agree with the History, Examination, Assessment and Plan documented above with any addition or exceptions noted below.
--- NOTE | 2018-05-27 20:52 | RAD ---
RADIOGRAPH CHEST 1 VIEW: Date: 05/27/18 Time: 1844 hours HISTORY: 62-year-old female with chest pain. FINDINGS: There is cardiomegaly. There is no evidence of air space density, pulmonary edema, or pneumothorax. T he lateral costophrenic angles are sharp. There is no interval change in the intrathoracic contents compared to 09/24/17. IMPRESSION: 1. No acute pulmonary findings. 2. Cardiomegaly without congestive heart failure. luís [] POS: [facility]
--- NOTE | 2018-05-27 22:34 | PDOC.EVN ---
Event Note - Event Note Event Note: Date/Time: 05/27/18 6188 I personally evaluated the patient and discussed the management with Dr. Preston. H&P pending. I agree with the History, Examination, Assessment and Plan as discussed.
[2018-05-28 01:21] LABS: Troponin I 0.011 ng/mL (< 0.028)
[2018-05-28] MEDS ORDERED: Ondansetron ODT 4 MG TAB SL PRN (01:57)
[2018-05-28] MEDS ORDERED: Ondansetron PF 4 MG/2 ML Vial IVP PRN (01:57)
[2018-05-28] MEDS ORDERED: Acetaminophen 325 MG TAB PO PRN (02:40)
[2018-05-28] MEDS ORDERED: Ondansetron ODT 4 MG TAB PO PRN (02:40)
[2018-05-28 03:43] VITALS: BMI 58.3
[2018-05-28] MEDS ORDERED: Midodrine HCl 5 MG TAB PO SCH (04:30)
[2018-05-28 04:38] LABS: ALT (SGPT) 15 U/L (8-55); AST (SGOT) 17 U/L (5-34); Albumin 3.6 g/dL (3.4-4.8); Alkaline Phosphatase 159 U/L (40-150); Anion Gap 17 mmol/L (10-20); BUN (Urea Nitrogen) 23 mg/dL (9.8-20.1); Bilirubin, Total 0.6 mg/dL (0.2-1.2); Calc. Creatinine Clearance 21 mL/min (70-130); Calcium 10.1 mg/dL (7.8-10.44); Carbon Dioxide 29 mmol/L (23-31); Chloride 100 mmol/L (98-107); Estimated GFR-MDRD 8; Globulin 2.9 g/dL (2.4-3.5); Glucose 89 mg/dL (80-115); Potassium 3.9 mmol/L (3.5-5.1); Protein, Total 6.5 g/dL (6.0-8.3); Sodium 142 mmol/L (136-145)
[2018-05-28 05:06] LABS: #Basophils 0.1 thou/uL (0.0-0.2); #Eosinphils 0.5 thou/uL (0.0-0.7); #Lymphocytes 2.4 thou/uL (1.20-3.40); #Monocytes 1.3 thou/uL (0.11-0.59); #Neutrophils 7.3 thou/uL (1.40-6.50); %Basophils 0.6 % (0.0-1.0); %Eosinophils 4.1 % (0.0-10.0); %Lymphocytes 20.6 % (21.0-51.0); %Monocytes 11.4 % (0.0-10.0); %Neutrophils 63.3 % (42.0-75.0); Hemoglobin 13.8 g/dL (12.0-16.0); Mean Corpuscular HGB CONC 29.2 g/dL (32.0-36.0); Mean Corpuscular Hemoglobin 29.6 pg (27.0-31.0); Mean Platelet Volume 9.5 fL (7.4-10.4); Platelet Count 350 thou/uL (130-400); RBC Distribution Width 13.9 % (11.5-14.5); RBC Morphology Normal; Red Blood Cell (RBC) Count 4.65 mill/uL (4.20-5.40); White Blood Cell (WBC) Count 11.6 thou/uL (4.8-10.8)
--- NOTE | 2018-05-28 06:24 | PDOC.FM ---
- Subjective Subjective: Patient resting comfortably in bed. No overnight events. Patient states that she has not had a recurrence of chest pain. Patient denies SOB, diaphoresis, NVD , fever/chills. - Objective Vital Signs & Weight: Vital Signs (12 hours) Temp Pulse Resp BP Pulse Ox 05/28/18 01:48 98 F 93 20 128/58 L 93 L Weight Weight 122.379 kg I&O: 05/26/18 05/27/18 05/28/18 06:59 06:59 06:59 Intake Total 0 Output Total 0 Balance 0 Result Diagrams: 05/28/18 03:34 05/28/18 03:34 <Adenike Mccoy - Last Filed: 05/28/18 08:06> - Objective Vital Signs & Weight: Vital Signs (12 hours) Temp Pulse Resp BP Pulse Ox 05/28/18 07:45 98.0 F 84 22 H 132/63 91 L 05/28/18 06:55 91 L 05/28/18 06:51 76 20 05/28/18 06:30 76 20 05/28/18 01:48 98 F 93 20 128/58 L 93 L Weight Weight 122.379 kg I&O: 05/27/18 05/28/18 05/29/18 06:59 06:59 06:59 Intake Total 0 Output Total 0 Balance 0 Result Diagrams: 05/28/18 03:34 05/28/18 03:34 <Fredy Bazzi - Last Filed: 05/28/18 10:41> Phys Exam - Physical Examination Constitutional: NAD morbidly obese female HEENT: PERRLA, moist MMs, sclera anicteric Neck: supple, full ROM Respiratory: clear to auscultation bilateral Cardiovascular: RRR chest non TTP Gastrointestinal: soft, non-tender, positive bowel sounds Musculoskeletal: no edema, pulses present Neurological: non-focal Psychiatric: normal affect, A&O x 3 Skin: no rash <Adenike Mccoy - Last Filed: 05/28/18 08:06> Dx/Plan (1) BMI 50.0-59.9, adult Code(s): Z68.43 - BODY MASS INDEX (BMI) 50-59.9, ADULT Status: Chronic (2) Benign hypertension Code(s): I10 - ESSENTIAL (PRIMARY) HYPERTENSION Status: Chronic (3) ESRD (end stage renal disease) on dialysis Code(s): N18.6 - END STAGE RENAL DISEASE; Z99.2 - DEPENDENCE ON RENAL DIALYSIS Status: Chronic (4) Gastroesophageal reflux disease Code(s): K21.9 - GASTRO-ESOPHAGEAL REFLUX DISEASE WITHOUT ESOPHAGITIS Status: Chronic Qualifiers: Esophagitis presence: esophagitis presence not specified Qualified Code(s) : K21.9 - Gastro-esophageal reflux disease without esophagitis (5) History of splenectomy Code(s): Z90.81 - ACQUIRED ABSENCE OF SPLEEN Status: Chronic (6) Hyperlipidemia Code(s): E78.5 - HYPERLIPIDEMIA, UNSPECIFIED Status: Chronic (7) RICHAR on CPAP Code(s): G47.33 - OBSTRUCTIVE SLEEP APNEA (ADULT) (PEDIATRIC); Z99.89 - DEPENDENCE ON OTHER ENABLING MACHINES AND DEVICES Status: Chronic (8) Atypical chest pain Code(s): R07.89 - OTHER CHEST PAIN Status: Resolved - Plan Plan: Atypical chest pain, ACS r/o - reproducible, tugging sensation, heart score 4 - Trop neg - TTE and Stress on 05/28 - NPO after midnight Asthma - possible cause of pain, continue home meds - duonebs q4hr PRN ESRD on dialysis - nephrology consulted, appreciate Recs - Cr. on arrival 4.44, on 05/28 5.29 - Pt got HD on 05/27 - AM CMP peripheral neuropathy - continue home meds GERD - continue home meds obesity hypoventilation syndrome - aware, O2 monitoring, keep sats>88% physical deconditioning - aware, turn frequently Code: full ppx: [facility] Disposition/LOS: monitor on tele, stress/echo 05/28 <Adenike Mccoy - Last Filed: 05/28/18 08:06> Attending Addendum - Attending Addendum Date/Time: 05/28/18 1037 I personally evaluated the patient and discussed the management with Dr. Mccoy. I agree with the History, Examination, Assessment and Plan documented above with any addition or exceptions noted below. 62F with atypical chest pain here for ACS r/o. She had a negative cardiac work up several years ago with Cardiology. No cardiac issues until yesterday's symptoms. DM on HD. Stress test and TTE today. F/u results. <Fredy Bazzi - Last Filed: 05/28/18 10:41>
[2018-05-28] MEDS ORDERED: Budesonide 0.5 MG/2 ML NEB NEB SCH (06:30)
[2018-05-28] MEDS ORDERED: Mometasone/Formoterol 120 PUFF INHALER INH SCH (06:30)
[2018-05-28] MEDS: Calcium Acetate 667 MG CAP PO SCH ×2 (07:03→12:31)
[2018-05-28] MEDS: Lanthanum Carbonate 500 mg Tablet PO SCH ×2 (07:03→12:31)
[2018-05-28] MEDS ORDERED: Pregabalin 50 MG CAP PO SCH (09:00)
[2018-05-28] MEDS ORDERED: predniSONE 5 MG TAB PO SCH (09:00)
[2018-05-28] MEDS ORDERED: Folic Acid 1 MG TAB PO SCH (09:00)
[2018-05-28] MEDS ORDERED: Montelukast Sodium 10 mg Tablet PO SCH (09:00)
[2018-05-28] MEDS ORDERED: Cyanocobalamin (Vitamin B-12) 1,000 MCG TAB PO SCH (09:00)
[2018-05-28] MEDS ORDERED: Clopidogrel Bisulfate 75 MG TAB PO SCH (09:00)
[2018-05-28] MEDS ORDERED: CeleCOXIB 100 MG CAP PO SCH (09:00)
[2018-05-28] MEDS: Primidone 50 MG TAB PO SCH ×2 (10:56→14:32)
[2018-05-28 11:02] VITALS: BP 128/75; TEMP 99.1
--- NOTE | 2018-05-28 14:09 | NM ---
MYOCARDIAL PERFUSION SCAN WITH SPECT IMAGING: HISTORY: Chest pain. FINDINGS: The examination was performed using 28 millicuries of 99m technetium sestamibi, as a stress only stud y. FINDINGS: Fairly normal distribution of the radiopharmaceutical without signs of ischemia or scar. WALL MOTION: There is symmetric contractility to the ventricle. LEFT VENTRICULAR EJECTION FRACTION: The calculated left ventricular fracture is 76%. IMPRESSION: Unremarkable myocardial perfusion scan. POS: [facility]
[2018-05-28] MEDS ORDERED: Regadenoson 0.4 MG/5 ML SYRINGE ONE (16:02)
[2018-05-28] MEDS ORDERED: Atorvastatin Calcium 40 MG TAB PO SCH (21:00)
[2018-05-28] MEDS ORDERED: Nortriptyline HCl 25 MG CAP PO PRN (21:00)
[2018-05-28] MEDS ORDERED: Fluticasone Propionate Nasal Spray 16 gm Bottle NASAL SCH (21:00)
--- NOTE | 2018-05-30 18:02 | DIS ---
DATE OF ADMISSION: 05/27/2018 DATE OF DISCHARGE: 05/28/2018 RESIDENT: Adenike Mccoy MD ADMITTING ATTENDING: Dr. Nito Morse. DISCHARGE ATTENDING: Dr. Fredy Bazzi. CONSULTS: None. PROCEDURES: None. PRIMARY DIAGNOSIS: Atypical chest pain. SECONDARY DIAGNOSES: 1. Asthma. 2. End-stage renal disease, on dialysis. 3. Peripheral neuropathy. 4. Gastroesophageal reflux disease. 5. Obesity hypoventilation syndrome. 6. Physical deconditioning. DISCHARGE MEDICATIONS: 1. Acetaminophen 650 mg oral every 4 hours as needed. 2. Nortriptyline 50 mg oral at bedtime as needed. 3. Midodrine 5 mg oral every other day. 4. Lyrica 50 mg oral three times daily. 5. Montelukast 10 mg oral daily. 6. Cyanocobalamin 1000 mcg oral daily. 7. Plavix 75 mg oral daily. 8. Prednisone 2.5 mg oral every morning. 9. Lipitor 80 mg oral at bedtime. 10. Primidone 50 mg oral three times daily. 11. Budesonide 0.5 mg inhalation twice daily. 12. Calcium acetate 667 mg oral three times daily with meals. 13. Folic acid 1 mg oral daily. 14. Fluticasone propionate one spray each naris at bedtime. 15. Ipratropium/albuterol sulfate 3 mL nebulizer twice daily as needed. 16. Celecoxib 200 mg oral twice daily. 17. Lanthanum carbonate 1000 mg oral three times daily with meals. 18. Symbicort 2 puff inhalation twice daily. DISCONTINUED MEDICATIONS: None. HISTORY OF PRESENT ILLNESS/HOSPITAL COURSE: This is a 62-year-old female, who presented to the ED with chest pain beginning 30 minutes prior to arrival while folding laundry. She described the pain as a point sensation in her left chest area and arm pain. The patient also states that she had crawling/cramping sensations in her chest before. The patient denied shortness of breath, palpitations, tingling, headache, or vision changes. The patient had dialysis earlier in the day. The patient has seen pharmacy tech customer service, Dr. Newton in the past without any positive stress or echo. These tests were done approximately 3 to 4 years ago. The patient had a HEART score of 4 on arrival. The patient's troponins were negative x3. The patient was kept n.p.o. after midnight for stress test. The patient had a stress test that revealed an unremarkable myocardial perfusion scan. The patient had an echocardiogram performed that was unchanged from her previous echo in 2017. The patient denied any other chest pain after leaving the ED. DISPOSITION: Stable. LOCATION: Home. DIET: Heart healthy. ACTIVITY: Ad-jordan. FOLLOWUP: Follow up with PCP within 1 week. Job ID: [id number] MTDD
--- NOTE | 2018-06-02 14:41 | EKG ---
Test Reason : Blood Pressure : / mmHG Vent. Rate : 093 BPM Atrial Rate : 093 BPM P-R Int : 190 ms QRS Dur : 098 ms QT Int : 380 ms P-R-T Axes : 033 -08 091 degrees QTc Int : 472 ms Normal sinus rhythm Abnormal QRS-T angle, consider primary T wave abnormality Abnormal ECG Confirmed by FILIPPO BETANCOURT, ZORAN Andrade ([id number]), supervising film or videotape editor PIERRE WARE ([id number]) on 06/02/2018 2:41:13 PM Referred By: Confirmed By:ZORAN BARKLEY MD
--- NOTE | 2018-06-02 17:42 | STRESS ---
Acquisition Time: 2018-05-28 08:51:52 Total Exercise Time: 00:01:00 Test Indications: CHEST PAIN Medications: Protocol: LEXISCAN Max HR: 093 BPM 59% of Pred: 156 BPM Max BP: 128/086 mmHG Max Work Load: 1.0 METS RESTING ECG: NORMAL SINUS RHYTHM AT 76 BPM WITH NONSPECIFIC T WAVES SYMPTOMS: NAUSEA NORMAL BP RESPONSE ECTOPY STRESS: NONE ECG STRESS: NO SIGNIFICANT CHANGES INTERPRETATION: NEGATIVE ECG / AWAIT NUCLEAR IMAGES FOR DEFINITIVE DIAGNOSIS Confirmed by ANDRES BILLINGS M.D. ([id number] on 06/02/2018 5:42:19 PM Referred By: DO CÁRDENAS Confirmed By:ANDRES BILLINGS M.D.
== END 2018-05-28 16:11 | disposition home or self-care (01) ==
LOC: ERS 18:25 → 2SW 19:54
PROVIDERS: ADMIT Family Medicine; ATTEND Family Medicine
DX: R07.89 Other chest pain (principal); K21.9 Gastro-esophageal reflux disease without esophagitis; I12.0 Hypertensive chronic kidney disease with stage 5 chronic kidney disease or end stage renal disease; N18.6 End stage renal disease; J44.1 Chronic obstructive pulmonary disease with (acute) exacerbation; J45.901 Unspecified asthma with (acute) exacerbation; G62.9 Polyneuropathy, unspecified; G47.33 Obstructive sleep apnea (adult) (pediatric); E66.2 Morbid (severe) obesity with alveolar hypoventilation; Z68.43 Body mass index [BMI] 50.0-59.9, adult; Z79.02 Long term (current) use of antithrombotics/antiplatelets; Z79.51 Long term (current) use of inhaled steroids; Z79.52 Long term (current) use of systemic steroids; Z79.899 Other long term (current) drug therapy; Z88.8 Allergy status to other drugs, medicaments and biological substances; Z91.048 Other nonmedicinal substance allergy status; Z91.040 Latex allergy status; Z99.89 Dependence on other enabling machines and devices
CPT/HCPCS: 71045; 78452; 80053 ×2; 82550; 83690; 83880; 84484 ×3; 85025 ×2; 93005; 93017; 93306; 94640 ×3; 94664; 94760; 96374; 99285; A9500; G0378 ×2; 36415; C9113; J2785; J7620; J7626

== ENCOUNTER 2018-07-08 10:38 | Emergency (ER) | payer MEDICARE, BC ==
[2018-07-08] MEDS ORDERED: ISOVUE-370 76%-LOCM 1 ML ONE (11:24)
[2018-07-08 11:32] LABS: #Eosinphils 0.4 thou/uL (0.0-0.7); #Monocytes 1.2 thou/uL (0.11-0.59); #Neutrophils 8.7 thou/uL (1.40-6.50); %Basophils 0.3 % (0.0-1.0); %Lymphocytes 22.6 % (21.0-51.0); %Monocytes 8.8 % (0.0-10.0); %Neutrophils 65.3 % (42.0-75.0); Hemoglobin 14.1 g/dL (12.0-16.0); Mean Corpuscular HGB CONC 32.1 g/dL (32.0-36.0); Mean Corpuscular Hemoglobin 32.1 pg (27.0-31.0); Mean Platelet Volume 8.7 fL (7.4-10.4); Platelet Count 390 thou/uL (130-400); RBC Distribution Width 13.3 % (11.5-14.5); Red Blood Cell (RBC) Count 4.39 mill/uL (4.20-5.40); White Blood Cell (WBC) Count 13.3 thou/uL (4.8-10.8)
[2018-07-08 11:58] LABS: ALT (SGPT) 9 U/L (8-55); AST (SGOT) 8 U/L (5-34); Albumin 3.8 g/dL (3.4-4.8); Alkaline Phosphatase 139 U/L (40-150); Anion Gap 20 mmol/L (10-20); BUN (Urea Nitrogen) 55 mg/dL (9.8-20.1); Bilirubin, Total 0.8 mg/dL (0.2-1.2); Calc. Creatinine Clearance 0 mL/min (70-130); Calcium 9.8 mg/dL (7.8-10.44); Carbon Dioxide 27 mmol/L (23-31); Chloride 97 mmol/L (98-107); Estimated GFR-MDRD 4; Glucose 96 mg/dL (80-115); Lipase 34 U/L (8-78); Potassium 4.5 mmol/L (3.5-5.1); Protein, Total 6.8 g/dL (6.0-8.3); Sodium 139 mmol/L (136-145)
--- NOTE | 2018-07-08 12:00 | RAD ---
CHEST 1 VIEW: Date: 07/08/18 HISTORY: Dyspnea. Shortness of breath prior to dialysis. COMPARISON: 05/27/18. FINDINGS: Mild bilateral vascular congestion and costophrenic angle blunting, stable. Mild cardiomegaly. No con fluent pneumonia, overt edema, or other acute process. IMPRESSION: Stable cardiomegaly and vascular congestion. No new process. POS: [facility]
--- NOTE | 2018-07-08 12:10 | CT ---
CT PULMONARY ANGIOGRAM WITH IV CONTRAST AND 3D MIP RECONSTRUCTIONS: 07/08/2018 PROVIDED CLINICAL HISTORY: Dyspnea. COMPARISON: 01/17/2017 FINDINGS: There is suboptimal opacification of the pulmonary arterial system, on the basis of bolus timing issu es. There is no evidence for central pulmonary embolus. The more peripheral pulmonary arterial syst em is not sufficiently opacified for comment. Vascular calcifications, including coronary calcium an d prominent mitral annular calcification, are again seen. There is an enlarged prevascular lymph nod e with central diminished attenuation, suggesting necrosis, measuring about 1.8 cm in short axis. No additional thoracic lymph node enlargement is apparent. The lungs are free of significant opacity. Bilateral shoulder arthropathy partially visualized. The airway appears patent and of normal caliber. There is no pleural fluid or pneumothorax apparent. The visualized portions of the upper abdomen demonstrate no acute abnormality. The osseous structures demonstrate no concerning osteoblastic or osteolytic lesions. IMPRESSION: 1. No evidence for central pulmonary embolus, with limitations in evaluating the more peripheral pul monary arterial system due to insufficient contrast material. 2. Vascular calcification, including coronary calcium. 3. Enlarged prevascular lymph node with evidence for central low attenuation that may reflect necros is. Malignancy is not excluded. POS: [facility]
== END 2018-07-08 13:45 | disposition home or self-care (01) ==
LOC: ERS 10:38
DX: R06.00 Dyspnea, unspecified (principal); I10 Essential (primary) hypertension; J45.909 Unspecified asthma, uncomplicated; E78.00 Pure hypercholesterolemia, unspecified; K21.9 Gastro-esophageal reflux disease without esophagitis; Z79.899 Other long term (current) drug therapy
CPT/HCPCS: 36415; 71045; 71275; 80053; 83690; 83880; 84484; 85025; 93005

== ENCOUNTER 2018-12-06 09:11 | Outpatient (CLI) | payer MEDICARE, BC ==
--- NOTE | 2018-12-06 09:36 | RAD ---
Two-view chest: HISTORY: Dyspnea COMPARISON: 04/17/2017 FINDINGS: Cardiomegaly with vascular congestion. Interstitial and hazy alveolar edema. Normal small e ffusions. IMPRESSION: Congestive findings as described. Not significantly changed from prior exam.
== END 2018-12-06 09:12 | disposition home or self-care (01) ==
LOC: RAD 09:11
PROVIDERS: ATTEND Internal Medicine Critical Care Medicine
DX: R06.00 Dyspnea, unspecified (principal); I51.7 Cardiomegaly; R09.89 Other specified symptoms and signs involving the circulatory and respiratory systems; J81.1 Chronic pulmonary edema
CPT/HCPCS: 71046

== ENCOUNTER 2018-12-10 09:07 | Outpatient (CLI) | payer MEDICARE, BC ==
--- NOTE | 2018-12-10 10:26 | CT ---
CT OF THE CHEST PERFORMED WITHOUT CONTRAST ENHANCEMENT: HISTORY: Followup of enlarged mediastinal lymph node. COMPARISON: 07/08/2018, 01/17/2017, and 03/01/2014 exams. FINDINGS: The lungs show a slightly mosaic lung pattern on this examination with areas of ground-glass opacity and hypoattenuation. This may be an indication of some air trapping. There is no focal infiltrative process. There is a subtle area of tree-in-bud nodularity seen within the left lower lobe on axial image 33 which could indicate some minimal pneumonitis-type change. The enlarged prevascular lymph node is again demonstrated. On the prior examination, it measured 18 mm in short axis dimension and appears essentially unchanged measuring 17 mm on today's study. In re viewing the older studies, this has shown a definite progression of change in size. In reviewing the earliest exam, the density was barely perceptible, then increased on the 2017 study to 10-11 mm and now is at the current measurement. There is a second small prevascular node with a fatty hilum also seen measuring 10 mm in size. There are calcified right hilar and subcarinal lymph nodes. Visualized liver parenchyma shows no focal findings. Kidneys show severe cortical thinning with mult iple hypodensities most compatible with cysts. The gallbladder has been removed. IMPRESSION: 1. Somewhat mosaic lung pattern which is a nonspecific findings. It could be an indication of some element of air trapping. 2. Small focus of tree-in-bud nodularity in the left lower lobe which could indicate pneumonitis. 3. Stable size to the prevascular lymph node. 4. Thyroid gland with multiple nodules partially visualized. POS: [facility]
== END 2018-12-10 09:08 | disposition home or self-care (01) ==
LOC: CT 09:07
PROVIDERS: ATTEND Internal Medicine Critical Care Medicine
DX: R59.1 Generalized enlarged lymph nodes (principal); R91.8 Other nonspecific abnormal finding of lung field
CPT/HCPCS: 71250

== ENCOUNTER 2019-06-27 17:56 | Inpatient (IN) | payer MEDICARE, BC ==
[2019-06-27 19:59] LABS: #Eosinphils 0.1 thou/uL (0.0-0.7); #Lymphocytes 2.7 thou/uL (1.20-3.40); #Monocytes 1.2 thou/uL (0.11-0.59); #Neutrophils 13.1 thou/uL (1.40-6.50); %Basophils 0.2 % (0.0-1.0); %Eosinophils 0.4 % (0.0-10.0); %Lymphocytes 15.8 % (21.0-51.0); %Neutrophils 76.6 % (42.0-75.0); Hemoglobin 12.5 g/dL (12.0-16.0); Mean Corpuscular HGB CONC 32.3 g/dL (32.0-36.0); Mean Corpuscular Volume 99.1 fL (78.0-98.0); Platelet Count 319 thou/uL (130-400); RBC Distribution Width 12.3 % (11.5-14.5); Red Blood Cell (RBC) Count 3.91 mill/uL (4.20-5.40); White Blood Cell (WBC) Count 17.1 thou/uL (4.8-10.8)
[2019-06-27 20:20] LABS: ALT (SGPT) 15 U/L (8-55); AST (SGOT) 14 U/L (5-34); Albumin 4.2 g/dL (3.4-4.8); Alkaline Phosphatase 109 U/L (40-110); Anion Gap 15 mmol/L (10-20); BUN (Urea Nitrogen) 34 mg/dL (9.8-20.1); Bilirubin, Total 0.7 mg/dL (0.2-1.2); Calcium 8.6 mg/dL (7.8-10.44); Carbon Dioxide 33 mmol/L (23-31); Chloride 98 mmol/L (98-107); Globulin 3.2 g/dL (2.4-3.5); Glucose 97 mg/dL (80-115); Potassium 5.2 mmol/L (3.5-5.1); Protein, Total 7.4 g/dL (6.0-8.3); Sodium 141 mmol/L (136-145)
[2019-06-27 20:27] LABS: Calc. Creatinine Clearance 0 mL/min (70-130); Estimated GFR-MDRD 5
[2019-06-27] MEDS ORDERED: Albuterol Sulfate 2.5 mg/0.5 ml Neb ONE ×5 (20:55→20:56)
[2019-06-27] MEDS ORDERED: Dexamethasone 4 mg/ml Vial ONE (21:18)
[2019-06-27] MEDS ORDERED: Piperacillin/Tazobactam 4.5 GM VIAL ONE (21:18)
[2019-06-27] MEDS ORDERED: Magnesium 2 GM/50 ML BAG (IN WATER) ONE (21:18)
[2019-06-27 21:23] LABS: Actual Bicarbonate (HCO3a) 30.8 mEq/L (22-28); Analyzer IN Cardio ER; Base Excess (BEa) 5.2 mEq/L (-2.0 to +3.0); CO2 Tension 49.2 mmHg (35.0-45.0); Calcium, Ionized 1.02 mmol/L (1.12-1.30); Carboxyhemoglobin (COHb) 0.3 gm% (0.0-3.0); Hemoglobin (Hb) 13.2 g/dL (12.0-16.0); Potassium - ABG Lab 4.63 mmol/L (3.70-5.30); pH, Arterial 7.41 (7.35-7.45)
[2019-06-27 21:24] LABS: Puncture Site RR
--- NOTE | 2019-06-27 22:54 | ULT ---
EXAM: Bilateral lower extremity venous Doppler HISTORY: Bilateral lower extremity pitting edema. FINDINGS: Grayscale, color-flow, Doppler evaluation, spectral analysis of the bilateral lower extremities venou s structures is performed with 2-D imaging. The bilateral common femoral, superficial femoral, popliteal, posterior tibial, proximal greater saphenous and profunda femoral veins are imaged. The distal superficial femoral veins are not well visualized on grayscale imaging which limits evalua tion for nonocclusive DVT. However, flow is demonstrated within these veins on color flow evaluation. There is otherwise normal luminal compressibility, flow, and augmentation in the visualiz ed deep venous structures of the bilateral lower extremities. There is subcutaneous edema seen bilaterally. IMPRESSION: Limited evaluation of distal superficial femoral veins bilaterally on grayscale imaging which limits evaluation for nonocclusive DVT at these levels, but there is flow within these venous structures without evidence of occlusive thrombus. There is otherwise no evidence of a deep vein thrombosis in t he visualized deep venous structures bilateral lower extremities.
--- NOTE | 2019-06-27 23:10 | RAD ---
EXAM: CHEST ONE VIEW HISTORY: Cough and congestion. COMPARISON: 12/06/2018 FINDINGS: Cardiac silhouette remains in enlarged. There is prominence of perihilar interstitial densities which were also seen on the prior exam and could be related to an element of mild pulmonary edema. Right hilar prominence is again seen. Question of blunting of the left lateral costophrenic angle, but this is probably due to overlying soft tissue density. There is resorption of the distal clavicles bilaterally which is unchanged. There is stable dislocation of each humeral head. IMPRESSION: Cardiomegaly with perihilar interstitial prominence which may be related to an element of pulmonary e keely. Slightly greater patchy density is seen in the right infrahilar region which could be related to asymmetric pulmonary edema versus pneumonitis or atelectasis. Follow-up chest x-ray is recommended .
--- NOTE | 2019-06-28 00:06 | PDOC.FPRHP ---
- History of Present Illness Chief Complaint: Shortness of breath History of Present Illness: Deloris is a 64yoF with a significant PMH of persistent asthma, ESRD on HD, HTN, RICHAR, and morbid obesity who presents to the ED for symptoms of increasing shortness of breath. She states that she used to have frequent asthma exacerbations and hospitalizations, however she has been doing well in the last year. She states that any time she gets an upper respiratory infection or cold her asthma acts up, she is usually able to manage this at home with nebulizer treatments and increasing her steroid dose. However, this time she was still becoming progressively more short of breath despite her usual measures. She denies fever. She also complains of LLE pain. She recalls slipping while getting out of her vehicle last week and believes she may have twisted her ankle at that time. ED Course: Mag sulfate, Decadron, Albuterol, Duoneb, Vanc and zosyn - Allergies/Adverse Reactions Allergies Allergy/AdvReac Type Severity Reaction Status Date / Time adhesive Allergy Rash Verified 05/28/18 02:04 Latex, Natural Rubber Allergy Rash Verified 05/28/18 02:04 levofloxacin [From Levaquin] Allergy Rash Verified 05/28/18 02:04 soap [From Betadine] Allergy Rash Verified 05/28/18 02:04 - Home Medications Medication Instructions Recorded Confirmed Type Atorvastatin Calcium [Lipitor] 80 mg PO HS 09/24/17 06/28/19 History Clopidogrel Bisulfate [Plavix] 75 mg PO DAILY 09/24/17 06/28/19 History Cyanocobalamin (Vitamin B-12) 1,000 mcg PO DAILY 09/24/17 06/28/19 History [Vitamin B-12] Midodrine HCl [ProAmatine] 5 mg PO Q2DAYS 09/24/17 06/28/19 History Montelukast Sodium [Singulair] 10 mg PO DAILY 09/24/17 06/28/19 History Nortriptyline HCl [Pamelor] 50 mg PO HS 09/24/17 06/28/19 History Pregabalin [Lyrica] 100 mg PO BID 09/24/17 06/28/19 History Primidone [Mysoline] 50 mg PO BID 09/24/17 06/28/19 History predniSONE [Prednisone] 2.5 mg PO QAM 09/24/17 06/28/19 History Budesonide 0.5 mg IH DAILY 02/18/18 06/28/19 History Calcium Acetate 667 mg PO TID- 02/18/18 06/28/19 History Acetaminophen [Tylenol Regular 650 mg PO Q4H PRN tab 05/28/18 06/28/19 Rx Strength] Budesonide-Formoterol [Symbicort 2 puff INH BID 05/28/18 06/28/19 History 160-4.5] Celecoxib 200 mg PO DAILY-AC 05/28/18 06/28/19 History Fluticasone Propionate [Flonase 1 spray EA NARE HS 05/28/18 06/28/19 History Nasal Sinclair] Folic Acid 1 mg PO DAILY 05/28/18 06/28/19 History Ipratropium/Albuterol Sulfate 3 ml NEB BID PRN 05/28/18 06/28/19 History Lanthanum Carbonate [Fosrenol] 1,000 mg PO TID- 05/28/18 06/28/19 History Albuterol Sulfate [Proair HFA] 2 puff INH Q4HR PRN 06/28/19 06/28/19 History Cinacalcet HCl [Sensipar] 60 mg PO DAILY 06/28/19 06/28/19 History Loratadine [Claritin] 10 mg PO DAILY PRN 06/28/19 06/28/19 History Nystatin [Nystop] 1 applic TOP BID 06/28/19 06/28/19 History Pantoprazole [Protonix] 40 mg PO DAILY 06/28/19 06/28/19 History Sevelamer Carbonate 2.4 gm PO TID- 06/28/19 06/28/19 History predniSONE [Prednisone] 10 mg PO DAILY 06/28/19 06/28/19 History - History PMHx: HTN ESRD on HD T// - Optical Fabricator is Dr. Ke Hernández RICHAR GERD HLD PSHx: Cholecystectomy Hernia repair Splenectomy L arm fistula Carpal tunnel surgery Parathyroidectomy FHx: Non contributory Social: Denies alcohol, tobacco or illicit drug use - Review of Systems General: denies: fever/chills, weight/appetite/sleep changes, night sweats Eyes: denies: eye pain, vision changes ENT: reports: nasal congestion, rhinorrhea Respiratory: reports: cough, congestion, shortness of breath, exercise intolerance Cardiovascular: reports: edema. denies: chest pain, palpitation Gastrointestinal: denies: nausea, vomiting, diarrhea, constipation, abdominal pain Genitourinary: denies: incontinence, dysuria, polyuria Skin: denies: rashes, lesions Musculoskeletal: reports: pain, tenderness, swelling. denies: stiffness Neurological: denies: numbness, syncope, seizure - Vital signs BP: 150/77, MAP: 101, Pulse: 77, Resp: 17, Temp: 98.3 (Oral), Pain: 0, O2 sat: 97 on (Room Air), Time: 06/27/2019 23:17. Weight 125kg - Physical Exam Constitutional: NAD, awake, alert and oriented, well developed HEENT: normocephalic and atraumatic, PERRLA, EOMI, conjunctiva clear, grossly normal vision, grossly normal hearing, MMM Neck: supple Heart: RRR, normal S1/S2, no murmurs/rubs/gallops, pulses present, other (1+ pitting edema BLE) Lungs: no respiratory distress -Lungs: Tight breath sounds, poor air movement with diffuse wheezing throughout. Abdomen: soft, non-tender Musculoskeletal: normal structure, normal tone -Musculoskeletal: Area of significant bruising on the left lateral ankle Neurological: no focal deficit, CN II-XII intact Skin: no rash/lesions, good turgor Heme/Lymphatic: no purpura, no petechia Psychiatric: normal mood and affect, good judgment and insight, intact recent and remote memory FMR H&P: Results - Labs Result Diagrams: 06/28/19 03:51 06/28/19 03:51 Lab results: WBC 17.1 thou/uL (4.8-10.8) H 06/27/19 19:46 Hgb 12.5 g/dL (12.0-16.0) 06/27/19 19:46 Hct 38.8 % (36.0-47.0) 06/27/19 19:46 MCV 99.1 fL (78.0-98.0) H 06/27/19 19:46 Plt Count 319 thou/uL (130-400) 06/27/19 19:46 Neutrophils % 76.6 % (42.0-75.0) H 06/27/19 19:46 ABG pH 7.41 (7.35-7.45) 06/27/19 21:08 ABG pCO2 49.2 mmHg (35.0-45.0) H 06/27/19 21:08 ABG pO2 60.0 mmHg (> 80.0) 06/27/19 21:08 Sodium 141 mmol/L (136-145) 06/27/19 19:46 Potassium 5.2 mmol/L (3.5-5.1) H 06/27/19 19:46 Chloride 98 mmol/L (98-107) 06/27/19 19:46 Carbon Dioxide 33 mmol/L (23-31) H 06/27/19 19:46 BUN 34 mg/dL (9.8-20.1) H 06/27/19 19:46 Creatinine 8.54 mg/dL (0.6-1.1) H 06/27/19 19:46 Glucose 97 mg/dL (80-115) 06/27/19 19:46 Lactic Acid 1.3 mmol/L (0.5-2.2) 06/27/19 21:02 Calcium 8.6 mg/dL (7.8-10.44) 06/27/19 19:46 Total Bilirubin 0.7 mg/dL (0.2-1.2) 06/27/19 19:46 AST 14 U/L (5-34) 06/27/19 19:46 ALT 15 U/L (8-55) 06/27/19 19:46 Alkaline Phosphatase 109 U/L (40-110) 06/27/19 19:46 B-Natriuretic Peptide 277.7 pg/mL (0-100) H 06/27/19 19:46 Serum Total Protein 7.4 g/dL (6.0-8.3) 06/27/19 19:46 Albumin 4.2 g/dL (3.4-4.8) 06/27/19 19:46 - EKG Interpretation EKG: NSR - Radiology Interpretation Chest x-ray Status: report reviewed by me (IMPRESSION: Cardiomegaly with perihilar interstitial prominence which may be related to an element of pulmonary e keely. Slightly greater patchy density is seen in the right infrahilar region which could be related to asymmetric pulmonary edema versus pneumonitis or atelectasis. Follow-up chest x-ray is recommended) US - venous Status: report reviewed by me (IMPRESSION: Limited evaluation of distal superficial femoral veins bilaterally on grayscale imaging which limits evaluation for nonocclusive DVT at these levels, but there is flow within these venous structures without evidence of occlusive thrombus. There is otherwise no evidence of a deep vein thrombosis in the visualized deep venous structures bilateral lower extremities.) FMR H&P: A/P - Problem List (1) Anemia in chronic kidney disease (CKD) Current Visit: No Status: Acute Code(s): N18.9 - CHRONIC KIDNEY DISEASE, UNSPECIFIED; D63.1 - ANEMIA IN CHRONIC KIDNEY DISEASE (2) Chronic obstructive asthma with exacerbation Current Visit: No Status: Acute Code(s): J44.1 - CHRONIC OBSTRUCTIVE PULMONARY DISEASE W (ACUTE) EXACERBATION; J45.901 - UNSPECIFIED ASTHMA WITH ( ACUTE) EXACERBATION (3) Elevated brain natriuretic peptide (BNP) level Current Visit: No Status: Acute Code(s): R79.89 - OTHER SPECIFIED ABNORMAL FINDINGS OF BLOOD CHEMISTRY (4) Physical deconditioning Current Visit: No Status: Acute Code(s): R53.81 - OTHER MALAISE (5) BMI 50.0-59.9, adult Current Visit: No Status: Chronic Code(s): Z68.43 - BODY MASS INDEX (BMI) 50.0-59.9, ADULT (6) ESRD (end stage renal disease) on dialysis Current Visit: No Status: Chronic Code(s): N18.6 - END STAGE RENAL DISEASE; Z99.2 - DEPENDENCE ON RENAL DIALYSIS (7) Gastroesophageal reflux disease Current Visit: No Status: Chronic Code(s): K21.9 - GASTRO-ESOPHAGEAL REFLUX DISEASE WITHOUT ESOPHAGITIS Qualifiers: Esophagitis presence: esophagitis presence not specified Qualified Code(s) : K21.9 - Gastro-esophageal reflux disease without esophagitis (8) RICHAR on CPAP Current Visit: No Status: Chronic Code(s): G47.33 - OBSTRUCTIVE SLEEP APNEA (ADULT) (PEDIATRIC); Z99.89 - DEPENDENCE ON OTHER ENABLING MACHINES AND DEVICES - Plan Acute asthma exacerbation -History of severe persistent asthma. Will admit for obs with duoneb scheduled q3hr and albuterol nebs q2hr prn. -Will start steroids at 40mg daily and plan for taper on discharge -Chest x-ray suggests patchy density in the right infrahilar region, will plan for f/u x-ray to monitor for improvement. -Despite elevated white count, which is likely due to steroids, patient does not appear to have infectious process. Will discontinue antibiotic therapy and monitor. -Negative for influenza ESRD on HD (//S) -Dr. Dempsey is her gambling supervisor. Will consult him and plan for dialysis tomorrow. -Continue home meds -on Midodrine for BP around dialysis, has hypotension with HD. LLE pain and bruising -XR of ankle and tib fib ordered -Venous dopplers ruled out DVT RICHAR / obesity hypoventilation syndrome -use home CPAP/settings HFpEF -Echo 05/2018 EF 55-60% -Suggested diastolic dysfunction Anemia of chronic disease -continue home medications/supplements Elevated BNP -277. -Does not appear to be clinically fluid overloaded, will monitor. GERD -Continue home medications Intention tremor -continue home medications Deconditioning -Patient does not walk much at home H/o HTN -not currently on medication, will monitor pressures. Disposition/LOS: Code: Cardiac only, DNI VTE: SCDs Dispo: Stable, observation status. Likely LOS < 48 hours. FMR H&P: Upper Level - Pertinent history Deloris is a 64 year old female with PMH significant for persistent asthma on chronic steroids, ESRD on HD T, , Thu, HTN, RICHAR, and Obesity hypoventilation syndrome that presents to the ED with nonproductive cough for the last 3 days. She was seen in urgent care where a flu swab was performed and noted to be negative. She has had worsening shortness of breath associated with cough since that time. She has also had swelling of the left ankle/leg and was concerned about a potential clot. Patient denies fever, chills, chest pain, body aches. She states that any time she gets an upper respiratory infection her asthma flares. She has been on 2.5 mg of steroids daily per Dr. Mcdonnell, her Analytics Consultant, for persistent asthma. She was given 20 mg prednisone tablets when exacerbations arise. She took one dose of 20 mg prednisone yesterday as she could tell her asthma was flaring. She is usually able to manage her asthma at home with increased dose of steroids and nebulizers, but despite her usual measures she was still feeling significantly short of breath. Patient does have history of hospitalizations requiring intubation for asthma; however, she has not needed evaluation in hospital for the last year. In regards to left leg swelling, patient reports this started a few days ago. She does not recall any specific twisting of ankle or fall, but she does note she slipped down from her vehicle while trying to transfer to her wheelchair, and states that possibly she twisted her ankle at that time but did not realize it. - Pertinent findings General: Alert and oriented x3. No acute distress. HEENT: MMM Card: 3/6 systolic murmur, RRR Resp: Decreased breath sounds throughout, minimal expiratory wheezes. Abdomen: Obese, soft, non-tender Ext: LLE with ecchymosis and tenderness of left lateral malleolus, 2+ pitting edema of bilateral LE's - Plan Date/Time: 06/28/195 [place], have evaluated this patient and agree with findings/plan as outlined by network internship resident. Pertinent changes/additions are listed here. Acute asthma exacerbation - CXR: Possible RLL infiltrate, bilateral haziness w/ possible pulmonary congestion - Symptoms improved with nebulizer treatments - Continue Duonebs scheduled q3h, PRN albuterol available between scheduled duonebs; space out scheduled duonebs as patient's clinical status improves - Will start patient on 40 mg prednisone x5 and send home with taper - Respiratory status stable; not requiring supplemental O2 or BiPAP, no apparent respiratory distress - Patient given Vanc and Zosyn in ED; unclear why. Will hold off on antibiotics at this time and evaluate clinically for changes suspicious for pneumonia. Will repeat CXR as recommended by radiologist to reassess for infiltrate in right perihilar region. - BNP 277 - Blood cultures obtained in ED - Influenza neg; given history of exacerbations in setting of URI, suspect URI contributing - ABG 7.41/49/60 Leukocytosis - WBC 17.1 - No left shift, suspect 2/2 chronic steroid use - Will monitor for signs symptoms of infection Left ankle swelling and pain - Suspect trauma - Xray tib/fib and left ankle pending - LE dopplers neg for DVT RICHAR and obesity hypoventilation syndrome - Continue CPAP at night or when sleeping as patient does at home ESRD on HD (//) - Consult Dr. Dempsey in AM for dialysis - Continue home meds HFpEF - Echo 05/2018 EF 55-60% - Suggested diastolic dysfunction - Gentle on fluids if they are needed - BNP 277 Anemia of chronic disease - Continue home medications/supplements GERD - Continue home medications Essential tremor - continue home medications Deconditioning - Patient does not walk much at home; she performs her own transfers and travels very short distances H/o HTN - Not currently on medication, will monitor pressures and add medication if necessary DVT PPX: SCD's (will avoid left leg if painful) Code status: DNI; cardiac only Dispo: Obs on medical. Anticipate LOS <48 hours. Addendum - Attending - Attending Attestation Date/Time: 06/28/19 0612 I personally evaluated the patient and discussed the management with Dr. Chaudhary on 06/27/2019 I agree with the History, Examination, Assessment and Plan documented above with any addition or exceptions noted below - 64 yo female with h/o asthma on chronic steroids, ESRD on HD, HTN, RICHAR presents c/o SOB x 3 days. Has been taking her medications as directed and increased steroid dose without improvement in symptoms. Does report a cough that is non- productive. Denies any fever/chills or ill contacts. Denies any sore throat or nasal congestion. Denies any CP. Has been attending dialysis as scheduled. PMH/PSH/Meds/SH reviewed and agree with resident's documentation. Afebrile P82 RR22 BP 137/83 98% on RA Exam repeated by me and agree with resident's findings. Labs: WBC= 17.1, H/H=12.5/38.8, Tjk=387, lactic acid=1.3, UQM=488, trop I < 0.010, CXR- negative. A/P: 1) Acute asthma exacerbation - continue scheduled duonebs, continue steroids. 2) ESRD- will contact nephrology to schedule HD 3) HTN- continue home meds. 4) Left ankle ecchymosis- will check x-ray to evaluate for occult fracture.
[2019-06-28] MEDS ORDERED: Ondansetron ODT 4 MG TAB PO PRN (00:12)
[2019-06-28] MEDS ORDERED: Albuterol Sulfate 2.5 mg/3 ml Neb NEB PRN (00:32)
[2019-06-28 01:18] VITALS: BMI 54.9
[2019-06-28] MEDS ORDERED: Loratadine 10 MG TAB PO PRN (03:59)
[2019-06-28] MEDS: Acetaminophen 325 MG TAB PO PRN ×2 (04:16→19:46)
[2019-06-28 05:13] LABS: Anion Gap 20 mmol/L (10-20); BUN (Urea Nitrogen) 41 mg/dL (9.8-20.1); Calc. Creatinine Clearance 11 mL/min (70-130); Calcium 8.3 mg/dL (7.8-10.44); Carbon Dioxide 27 mmol/L (23-31); Chloride 98 mmol/L (98-107); Estimated GFR-MDRD 4; Glucose 165 mg/dL (80-115); Potassium 5.4 mmol/L (3.5-5.1); Sodium 140 mmol/L (136-145)
[2019-06-28 05:34] LABS: Band 3 % (5-11); Hemoglobin 11.9 g/dL (12.0-16.0); Lymphocytes 1 % (21-51); MDiff Complete? YES; Mean Corpuscular HGB CONC 32.5 g/dL (32.0-36.0); Mean Corpuscular Hemoglobin 32.4 pg (27.0-31.0); Mean Corpuscular Volume 99.6 fL (78.0-98.0); Mean Platelet Volume 10.3 fL (7.4-10.4); Metamyelocyte 1 % (0-0); Neutrophil 95 % (42-75); Platelet Count 310 thou/uL (130-400); RBC Distribution Width 12.4 % (11.5-14.5); Red Blood Cell (RBC) Count 3.66 mill/uL (4.20-5.40); White Blood Cell (WBC) Count 15.6 thou/uL (4.8-10.8)
[2019-06-28] MEDS: Pregabalin 50 MG CAP PO SCH ×2 (08:28→19:47)
[2019-06-28] MEDS: predniSONE 20 MG TAB PO SCH (08:30)
[2019-06-28] MEDS: Calcium Acetate 667 MG CAP PO SCH ×4 (08:30→18:00)
[2019-06-28] MEDS: Sevelamer Carbonate 800 MG TAB PO SCH ×3 (08:30→18:00)
[2019-06-28] MEDS: Clopidogrel Bisulfate 75 MG TAB PO SCH (08:31)
[2019-06-28] MEDS: Cyanocobalamin (Vitamin B-12) 1,000 MCG TAB PO SCH (08:31)
[2019-06-28] MEDS: Montelukast Sodium 10 mg Tablet PO SCH (08:31)
[2019-06-28] MEDS: Lanthanum Carbonate 500 mg Tablet PO SCH ×3 (08:31→18:07)
[2019-06-28] MEDS: Folic Acid 1 MG TAB PO SCH (08:31)
[2019-06-28] MEDS: Cinacalcet HCl 30 MG TAB PO SCH ×2 (08:31→08:47)
--- NOTE | 2019-06-28 08:40 | PDOC.FM ---
- Subjective Subjective: Pt is feeling improved from yesterday, still has some intermittent SOB. No other complaints no fever/chills, SOB, no cp - Objective Vital Signs & Weight: Vital Signs (12 hours) Temp Pulse Resp BP Pulse Ox 06/28/19 06:39 74 18 96 06/28/19 04:20 98.6 F 77 16 137/62 99 06/28/19 04:01 77 16 99 06/28/19 01:12 81 16 99 06/28/19 00:25 99.2 F 81 22 H 137/83 98 Weight Weight 123.462 kg I&O: 06/27/19 06/28/19 06/29/19 06:59 06:59 06:59 Intake Total 720 Balance 720 Result Diagrams: 06/28/19 03:51 06/28/19 03:51 Phys Exam - Physical Examination Constitutional: NAD HEENT: moist MMs, sclera anicteric Neck: supple, full ROM Respiratory: no rales bilat expiratory wheezing Cardiovascular: RRR, no significant murmur Gastrointestinal: soft, non-tender Musculoskeletal: no edema, pulses present L ankle ttp in posteriolateral aspect Neurological: non-focal, normal sensation Psychiatric: normal affect, A&O x 3 Skin: no rash, normal turgor Dx/Plan (1) Chronic obstructive asthma with exacerbation Code(s): J44.1 - CHRONIC OBSTRUCTIVE PULMONARY DISEASE W (ACUTE) EXACERBATION; J45.901 - UNSPECIFIED ASTHMA WITH (ACUTE) EXACERBATION Status: Acute (2) Elevated brain natriuretic peptide (BNP) level Code(s): R79.89 - OTHER SPECIFIED ABNORMAL FINDINGS OF BLOOD CHEMISTRY Status : Acute (3) Asthma Code(s): J45.909 - UNSPECIFIED ASTHMA, UNCOMPLICATED Status: Chronic (4) BMI 50.0-59.9, adult Code(s): Z68.43 - BODY MASS INDEX (BMI) 50.0-59.9, ADULT Status: Chronic (5) CHF (congestive heart failure) Code(s): I50.9 - HEART FAILURE, UNSPECIFIED Status: Chronic (6) ESRD (end stage renal disease) on dialysis Code(s): N18.6 - END STAGE RENAL DISEASE; Z99.2 - DEPENDENCE ON RENAL DIALYSIS Status: Chronic (7) Gastroesophageal reflux disease Code(s): K21.9 - GASTRO-ESOPHAGEAL REFLUX DISEASE WITHOUT ESOPHAGITIS Status: Chronic Qualifiers: Esophagitis presence: esophagitis presence not specified Qualified Code(s) : K21.9 - Gastro-esophageal reflux disease without esophagitis (8) Obstructive sleep apnea Code(s): G47.33 - OBSTRUCTIVE SLEEP APNEA (ADULT) (PEDIATRIC) Status: Chronic - Plan Plan: Acute asthma exacerbation A- History of severe persistent asthma.admitted for obs with duoneb scheduled q3hr and albuterol nebs q2hr prn. She seems to be slowly improving. Chest x-ray suggests patchy density in the right infrahilar region. possible pneumonitis. Negative for influenza P- continue duonebs -continue prednisone -f/u x-ray to monitor for improvement of patchy infiltrate ESRD on HD (//) A-on Midodrine for BP around dialysis, has hypotension with HD. P- continue dialysis LLE pain and bruising A- XR of ankle and tib fib ordered. Venous dopplers ruled out DVT P- f/u imaging RICHAR / obesity hypoventilation syndrome -use home CPAP/settings HFpEF A- Echo 05/2018 EF 55-60%. Suggested diastolic dysfunction P- will be mindful of fluids Anemia of chronic disease -continue home medications/supplements Elevated BNP -277. Does not appear to be clinically fluid overloaded, will monitor. GERD -Continue home medications Intention tremor -continue home medications Deconditioning -Patient does not walk much at home, walking program H/o HTN -not currently on medication, will monitor pressures. Code: Cardiac only, DNI Addendum - Attending - Attending Attestation Date/Time: 06/28/19 0595 I personally evaluated the patient and discussed the management with the team. I agree with the History, Examination, Assessment and Plan documented above with any addition or exceptions noted below. No fever, chills, nonproductive cough. She has bibasilar crackles and poor air movement with expiratory wheeze. I feel mainly an asthma exacerbation. Will consult Dr. Mcdonnell, her primary professor of public administration.
[2019-06-28] MEDS ORDERED: Midodrine HCl 5 MG TAB PO SCH (09:00)
[2019-06-28] MEDS: Primidone 50 MG TAB PO SCH ×2 (09:29→23:44)
--- NOTE | 2019-06-28 10:19 | CON ---
DATE OF CONSULTATION: 06/28/2019 HISTORY OF PRESENT ILLNESS: Ms. De La Vega is a 64-year-old female with known history of ESRD - on maintenance hemodialysis, who was admitted for shortness of breath. She was noted to have exacerbation of her asthma. We are being consulted for management of her ESRD. I have scheduled this patient for hemodialysis today. Her breathing is actually much better this morning. REVIEW OF SYSTEMS: Positive for shortness of breath. No chest pain. No syncopal episode. No nausea. No vomiting. No fever or chills. No productive cough. No gross hematuria. No dysuria. No urinary frequency. No abdominal pain. Appetite and energy level are fair. No headache. No diplopia. No dysuria. No hematochezia. No melena. HOME MEDICATIONS: Include the following; 1. Lipitor 80 mg at bedtime. 2. Clopidogrel 75 mg once a day. 3. Vitamin B12 of 1000 mcg daily. 4. Midodrine 5 mg p.o. every other day during dialysis. 5. Singulair 10 mg daily. 6. Nortriptyline 50 mg at bedtime. 7. Lyrica 100 mg p.o. b.i.d. 8. Primidone 50 mg p.o. b.i.d. 9. Prednisone 2.5 mg q.a.m. 10. Budesonide inhaler as directed. 11. Calcium acetate 667 mg 1 tablet t.i.d. with meals. 12. Symbicort 2 puffs b.i.d. 13. Celebrex 200 mg daily. 14. Albuterol sulfate neb treatment q.i.d. 15. Lanthanum sulfate 1000 mg p.o. t.i.d. with meals. 16. ProAir 2 puffs q.4 hours as needed. 17. Protonix 40 mg tablet once a day. 18. Sevelamer 1600mg p.o. t.i.d. with meals. 19. Prednisone 10 mg daily. PAST MEDICAL HISTORY: 1. Obstructive sleep apnea. 2. Chronic asthma. 3. Hypertension. 4. ESRD from hypertensive nephropathy - on maintenance hemodialysis. 5. GERD. 6. Hyperlipidemia. 7. Hyperphosphatemia. PAST SURGICAL HISTORY: 1. Status post parathyroidectomy. 2. Status post cholecystectomy. 3. Status post hernia repair. 4. Status post splenectomy. 5. Status post AV fistula placement. 6. Status post carpal tunnel surgery. 7. Status post cuffed hemodialysis catheter placement. 8. Status post upper and lower GI endoscopy. SOCIAL HISTORY: The patient is single, lives with her niece. 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 Lives in [place]. No alcohol intake. No smoking. No children. No drug abuse. Sedentary lifestyle. Status post blood transfusion. ALLERGIES: NONE. TRAUMA: None. IMMUNIZATIONS: Up to date. HOSPITALIZATIONS: Please see past medical history. FAMILY HISTORY: Positive family history of ESRD. PHYSICAL EXAMINATION: VITAL SIGNS: Blood pressure is noted at 137/62, heart rate 77, respiratory rate 16, temperature 98.6, and pulse ox 99%. GENERAL: Awake, alert, obese, comfortable, not in distress. SKIN: Adequate turgor. HEENT: She has pinkish conjunctivae. Anicteric sclerae. No neck mass. No carotid bruits. No JVD. CHEST: No deformities. LUNGS: Clear breath sounds. No wheezing. No crackles. HEART: Normal sinus rhythm. No murmur. No gallops. No rubs. ABDOMEN: Globular, soft, nontender. No masses. EXTREMITIES: No edema. NEUROLOGICAL: Awake, oriented to 3 spheres. Moving all extremities. No tremors. No asterixis. LABORATORY DATA: Laboratories of June 28, 2019; white count 15.6, hemoglobin 11.9. Sodium 140, potassium 5.4, chloride 98, carbon dioxide 27, BUN 41, creatinine 9.45, glucose 165, and calcium 8.3. IMAGING DATA: On June 27, 2019; chest x-ray shows perihilar interstitial prominence, ? of CHF. ASSESSMENT AND PLAN: 1. End-stage renal disease - we will schedule the patient for her regular hemodialysis. The plan is to do a 4-hour hemodialysis. We will max out fluid removal only as tolerated by the patient. Review of her last kt/V at the outpatient hemodialysis suggest she is adequately dialyzed with the current hemodialysis regimen. 2. Asthma exacerbation, clinically much improved. Continue supportive care. Agree with current management. 3. Hyperphosphatemia - On Renvela. Job ID: [id number] [facility]
--- NOTE | 2019-06-28 10:22 | RAD ---
LEFT ANKLE 3 VIEWS: Date: 06/28/2019 HISTORY: Pain, bruising left ankle. FINDINGS/IMPRESSION: The ankle mortise is maintained. No acute fracture or dislocation is seen. There are posterior and pl primo calcaneal spurs. Vascular calcifications are present. POS: OFF
--- NOTE | 2019-06-28 10:27 | RAD ---
EXAM: XR Tib Fib Lt Leg 2 View PROVIDED CLINICAL HISTORY: Pain FINDINGS: There is no evidence for fracture or other acute osseous abnormality. Alignment appears anatomic. Vas cular calcifications are seen. Degenerative changes are present at the knee. IMPRESSION: No evidence for an acute osseous abnormality. If there is persistent clinical concern, conservative m anagement and follow-up imaging advised.
[2019-06-28] MEDS: Mometasone/Formoterol 120 PUFF INHALER INH SCH (19:42)
[2019-06-28] MEDS ORDERED: Nortriptyline HCl 25 MG CAP PO SCH (21:00)
[2019-06-28] MEDS ORDERED: Atorvastatin Calcium 40 MG TAB PO SCH (21:00)
[2019-06-29 05:03] LABS: Anion Gap 16 mmol/L (10-20); BUN (Urea Nitrogen) 29 mg/dL (9.8-20.1); Calc. Creatinine Clearance 17 mL/min (70-130); Carbon Dioxide 28 mmol/L (23-31); Chloride 96 mmol/L (98-107); Estimated GFR-MDRD 7; Glucose 115 mg/dL (80-115); Potassium 4.4 mmol/L (3.5-5.1); Sodium 136 mmol/L (136-145)
[2019-06-29 05:30] LABS: #Eosinphils 0.1 thou/uL (0.0-0.7); #Lymphocytes 2.9 thou/uL (1.20-3.40); #Monocytes 1.3 thou/uL (0.11-0.59); #Neutrophils 10.1 thou/uL (1.40-6.50); %Basophils 0.3 % (0.0-1.0); %Eosinophils 0.4 % (0.0-10.0); %Monocytes 9.1 % (0.0-10.0); %Neutrophils 70.2 % (42.0-75.0); Hemoglobin 11.6 g/dL (12.0-16.0); Mean Corpuscular HGB CONC 32.8 g/dL (32.0-36.0); Mean Corpuscular Hemoglobin 32.3 pg (27.0-31.0); Mean Corpuscular Volume 98.7 fL (78.0-98.0); Mean Platelet Volume 9.8 fL (7.4-10.4); Platelet Count 300 thou/uL (130-400); RBC Distribution Width 12.7 % (11.5-14.5); White Blood Cell (WBC) Count 14.4 thou/uL (4.8-10.8)
--- NOTE | 2019-06-29 07:37 | RAD ---
Chest one view HISTORY: Dyspnea. COMPARISON: 06/27/2019. FINDINGS: Cardiac silhouette is magnified and enlarged. Pulmonary vasculature are less engorged than on the prior study. Bilateral perihilar infiltrates are also less dense. Mediastinum is midline with aortic calcification. No evidence of pneumothorax. IMPRESSION: Interval decrease in radiographic severity of pulmonary vascular congestion and bilateral perihilar infiltrates. Other findings are stable.
[2019-06-29] MEDS: Clopidogrel Bisulfate 75 MG TAB PO SCH (08:23)
[2019-06-29] MEDS: Cinacalcet HCl 30 MG TAB PO SCH (08:23)
[2019-06-29] MEDS: Pregabalin 50 MG CAP PO SCH (08:24)
[2019-06-29] MEDS: Sevelamer Carbonate 800 MG TAB PO SCH ×2 (08:24→12:34)
[2019-06-29] MEDS: Montelukast Sodium 10 mg Tablet PO SCH (08:24)
[2019-06-29] MEDS: Cyanocobalamin (Vitamin B-12) 1,000 MCG TAB PO SCH (08:25)
[2019-06-29] MEDS: Folic Acid 1 MG TAB PO SCH (08:25)
[2019-06-29] MEDS: predniSONE 20 MG TAB PO SCH (08:25)
[2019-06-29] MEDS: Primidone 50 MG TAB PO SCH (08:25)
[2019-06-29] MEDS: Lanthanum Carbonate 500 mg Tablet PO SCH ×2 (08:26→12:34)
[2019-06-29] MEDS: Mometasone/Formoterol 120 PUFF INHALER INH SCH (08:31)
--- NOTE | 2019-06-29 08:42 | PRG ---
DATE OF SERVICE: 06/29/2019 SUBJECTIVE: Ms. De La Vega is a 64-year-old female with ESRD-on maintenance hemodialysis and was admitted for shortness of breath from asthma exacerbation. She did undergo dialysis yesterday and developed cramping episodes after dialysis. This may be reflection of the fluid removal. We will adjust fluid removal with dialysis. No new complaints today. Still breathing is actually improved from last time. No complaints of chest pain. OBJECTIVE: VITAL SIGNS: Blood pressure is 131/62, heart rate 64, respiratory rate 20, temperature 98.1, pulse ox 98%. GENERAL: Awake, obese, comfortable, not in overt distress. SKIN: Adequate turgor. HEENT: Pinkish conjunctivae. Anicteric sclerae. NECK: No neck mass. No carotid bruits. No JVD. CHEST: No deformities. LUNGS: Clear breath sounds. HEART: Normal sinus rhythm. No murmur. No gallops. No rubs. ABDOMEN: Globular, soft, nontender. No masses. EXTREMITIES: No edema. No deformities. MEDICATIONS: Medications of June 2019 was reviewed. LABORATORY DATA: Laboratories of June 29, 2019, white count 14.4, hemoglobin 11.6. Sodium 136, potassium 4.4, chloride 96, carbon dioxide 28, BUN 29, creatinine 6.38, glucose 115, calcium 8.0. ASSESSMENT AND PLAN: 1. End-stage renal disease, stable, tolerating hemodialysis regimen. Adjust fluid removal tomorrow if she is still here. She did develop a cramping episode after her dialysis. 2. Shortness of breath-asthma exacerbation. Clinically improving. Pulmonary following. 3. Chronic anemia. No indication for any Epogen at the present time. Overall, agree with current management. Job ID: [id number]
--- NOTE | 2019-06-29 09:13 | PDOC.FM ---
- Subjective Subjective: pt feeling improved, feels she might be able to go home later today if she continues to feel better, she has persistent cough. Reports having 4L pulled off at dialysis yesterday. - Objective Vital Signs & Weight: Vital Signs (12 hours) Temp Pulse Resp BP Pulse Ox 06/29/19 07:55 98.1 F 64 20 131/62 98 06/29/19 04:00 98.1 F 68 16 121/59 L 90 L 06/29/19 03:47 70 16 90 L 06/29/19 00:33 73 20 97 06/29/19 00:00 98.6 F 73 16 147/63 H 92 L 06/28/19 22:06 68 20 95 Weight Weight 123.462 kg I&O: 06/28/19 06/29/19 06/30/19 06:59 06:59 06:59 Intake Total 720 1225 Balance 720 1225 Result Diagrams: 06/29/19 05:23 06/29/19 04:41 Phys Exam - Physical Examination Constitutional: NAD HEENT: moist MMs, sclera anicteric Neck: supple, full ROM mild wheezing, improved Cardiovascular: RRR, no significant murmur Gastrointestinal: soft, non-tender Musculoskeletal: no edema, pulses present Neurological: normal sensation, moves all 4 limbs Psychiatric: normal affect, A&O x 3 Skin: no rash, normal turgor Dx/Plan (1) Chronic obstructive asthma with exacerbation Code(s): J44.1 - CHRONIC OBSTRUCTIVE PULMONARY DISEASE W (ACUTE) EXACERBATION; J45.901 - UNSPECIFIED ASTHMA WITH (ACUTE) EXACERBATION Status: Acute (2) Elevated brain natriuretic peptide (BNP) level Code(s): R79.89 - OTHER SPECIFIED ABNORMAL FINDINGS OF BLOOD CHEMISTRY Status : Acute (3) Asthma Code(s): J45.909 - UNSPECIFIED ASTHMA, UNCOMPLICATED Status: Chronic (4) BMI 50.0-59.9, adult Code(s): Z68.43 - BODY MASS INDEX (BMI) 50.0-59.9, ADULT Status: Chronic (5) CHF (congestive heart failure) Code(s): I50.9 - HEART FAILURE, UNSPECIFIED Status: Chronic (6) ESRD (end stage renal disease) on dialysis Code(s): N18.6 - END STAGE RENAL DISEASE; Z99.2 - DEPENDENCE ON RENAL DIALYSIS Status: Chronic (7) Gastroesophageal reflux disease Code(s): K21.9 - GASTRO-ESOPHAGEAL REFLUX DISEASE WITHOUT ESOPHAGITIS Status: Chronic Qualifiers: Esophagitis presence: esophagitis presence not specified Qualified Code(s) : K21.9 - Gastro-esophageal reflux disease without esophagitis (8) Obstructive sleep apnea Code(s): G47.33 - OBSTRUCTIVE SLEEP APNEA (ADULT) (PEDIATRIC) Status: Chronic - Plan Plan: Acute asthma exacerbation A- Improved, CXR shows improvement as well. still on O2 but pt has O2 at home prn. P- continue duonebs -continue prednisone -possible DC this afternoon if pt continues to improve ESRD on HD (//) A-on Midodrine for BP around dialysis, has hypotension with HD. P- continue dialysis LLE pain and bruising A- XR of ankle and tib fib ordered, no acute pathology. Venous dopplers ruled out DVT. P- f/u oupt, palliative measures RICHAR / obesity hypoventilation syndrome -use home CPAP/settings HFpEF A- Echo 05/2018 EF 55-60%. Suggested diastolic dysfunction P- will be mindful of fluids Anemia of chronic disease -continue home medications/supplements Volume overload -BNP 277 on admission, pulled 4L off at dialysis Does not appear to be clinically fluid overloaded this AM GERD -Continue home medications Intention tremor -continue home medications Deconditioning -Patient does not walk much at home, PT H/o HTN -not currently on medication, will monitor pressures. Code: Cardiac only, DNI Addendum - Attending - Attending Attestation Date/Time: 06/29/19 [id number] I personally evaluated the patient and discussed the management with the team. I agree with the History, Examination, Assessment and Plan documented above with any addition or exceptions noted below.
[2019-06-29] MEDS: Calcium Acetate 667 MG CAP PO SCH ×2 (09:32→14:02)
[2019-06-29 11:33] VITALS: BP 138/63; TEMP 98.5
[2019-06-29] MEDS: Acetaminophen 325 MG TAB PO PRN (12:37)
[2019-06-29] MEDS ORDERED: Benzonatate 100 MG CAP PO SCH (15:00)
--- NOTE | 2019-06-30 15:25 | DIS ---
DATE OF ADMISSION: 06/29/2019 DATE OF DISCHARGE: 06/29/2019 ADMITTING ATTENDING: Ximena Cobb MD DISCHARGE ATTENDING: Benjamín Castro MD RESIDENT: Fredy Brothers MD CONSULTS: None. PROCEDURES: 1. On 06/27/2019, venogram; impression, limited evaluation of distal superficial femoral veins bilaterally on grayscale imaging, which limits the evaluation of nonocclusive DVT at these times, but there is flow within these venous structures without evidence of occlusive thrombus. There is otherwise no evidence of a deep vein thrombosis in the visualized deep venous structures in bilateral lower extremities. 2. On 06/28/2019, ankle x-ray; impression, no acute fracture. 3. On 06/28/2019, tibia-fibula x-ray; impression, no acute fracture or acute processes. DISCHARGE MEDICATIONS: 1. Nortriptyline 50 mg p.o. at bedtime. 2. Midodrine 5 mg p.o. q.2 days for dialysis. 3. Lyrica 100 mg p.o. b.i.d. 4. Montelukast 10 mg p.o. daily. 5. Vitamin B 1000 mcg p.o. daily. 6. Plavix 75 mg p.o. daily. 7. Prednisone taper over seven days, 40 mg to 10 mg, then resume home dosing of 2.5 mg p.o. daily. 8. Atorvastatin 80 mg p.o. at bedtime. 9. Primidone 50 mg p.o. b.i.d. 10. Budesonide 0.5 mg inhaled daily. 11. Calcium supplement. 12. Folic acid. 13. Flonase 1 spray each nares at bedtime. 14. Ipratropium/albuterol 3 mL nebulized b.i.d. p.r.n. 15. Celecoxib. 16. Fosrenol 1000 mg p.o. t.i.d. 17. Symbicort two puffs inhaled b.i.d. 18. Nystatin one application topical b.i.d. 19. Claritin 10 mg p.o. daily. 20. Sensipar. 21. Sevelamer carbonate 2.4 g p.o. t.i.d. 22. Protonix 40 mg p.o. daily. 23. Tessalon 100 mg p.o. t.i.d. p.r.n. DISCONTINUED MEDICATIONS: None. PRIMARY DIAGNOSIS: Hypoxic respiratory failure secondary to asthma exacerbation. SECONDARY DIAGNOSES: End-stage renal disease, on hemodialysis; left lower extremity pain and bruising; obstructive sleep apnea; obesity hypoventilation syndrome; heart failure with preserved ejection fraction; anemia of chronic disease; volume overload; gastroesophageal reflux disease; intention tremor; deconditioning; and history of hypertension. HISTORY OF PRESENT ILLNESS/HOSPITAL COURSE: This is a 64-year-old female with history of asthma, who presented in respiratory distress. She was admitted for asthma exacerbation. Her asthma is severe and she has maximal therapy including baseline dose of prednisone 2.5 mg p.o. 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 However, during this hospitalization, she responded very quickly to prednisone and magnesium and was able to be discharged after only a few days. She was discharged with her home oxygen and plans to follow up with Dr. Mcdonnell shortly. DISPOSITION: Stable. DISCHARGE INSTRUCTIONS: Location: Home. Activity: As tolerated. Diet: Diabetic diet, heart failure diet. FOLLOWUP: Follow up with Dr. Bazzi in 1 to 2 weeks. Follow up with Dr. Mcdonnell in 2 to 3 weeks. Job ID: [id number]
--- NOTE | 2019-07-01 04:59 | PQF ---
[employer] Hel[employer] Crystal Reports Winform ViewerHEMANT TEJEDA FABIAN ROA MD [id number] CLINICAL DOCUMENTATION CLARIFICATION FORM: POST DISCHARGE Addendum to original discharge summary date: ____ Late entry note date: __07/02/2019 DATE: 07/01/2019 ATTN: FABIAN ROA MD Please exercise your independent, professional judgment in responding to the clarification form. Clinical indicators are provided on the bottom of this form for your review Please check appropriate box(s): [ ] Acute Respiratory Failure with Hypoxia [ ] Chronic Respiratory Failure with Hypoxia [ x ] Acute on chronic Respiratory Failure with Hypoxia [ ] Other diagnosis [ ] Unable to determine In addition, please specify: Present on Admission (POA): [ ] Yes [ ] No [ ] Unable to determine For continuity of documentation, please document condition throughout progress notes and discharge summary. Thank You. CLINICAL INDICATORS - SIGNS / SYMPTOMS / LABS Respiratory Failure with Hypoxia - Documented in DS on 06/29 by Deneen garcia Patient was admitted with asthma exacerbation - Documented in DS on 06/29 by Deneen garcia ABG pCO2 49.2 on 06/27, ABG pH 7.41 - Documented in Laboratory Blood Gas O2 saturation 98% on 06/28 , 92% on 06/29 and 90% on 06/29 - Documented in Vital signs Respiration rate 22 on 06/28 and 24 on 06/28 - Documented in Vital signs Possible pneumonitis - Documented in Family medicine PNs on 06/29 by Deneen garcia RISK FACTORS Asthma exacerbation ESRD HTN Obesity hypoventilation syndrome -Documented in DS on 06/29 by Deneen garcia TREATMENTS: O2 Delivery Nasal cannula on 06/28 and 06/29 - Documented in Vital signs [employer] Reports Winform Viewer (This form is maintained as a part of the permanent medical record) 2014 [employer]. All Rights Reserved [email or web address] [not provided] MTDD
== END 2019-06-29 17:28 | disposition home or self-care (01) | DRG 202 ==
LOC: ERS 17:56 → ONC 22:59 → OBSVTOIN 06-29 14:17
PROVIDERS: ADMIT Family Medicine; ATTEND Family Medicine
PROC: 5A1D70Z Performance of Urinary Filtration, Intermittent, Less than 6 Hours Per Day (ICD-10-PCS; principal; 2019-06-29)
DX: J45.51 Severe persistent asthma with (acute) exacerbation (principal); N18.6 End stage renal disease; J96.21 Acute and chronic respiratory failure with hypoxia; J44.1 Chronic obstructive pulmonary disease with (acute) exacerbation; E66.2 Morbid (severe) obesity with alveolar hypoventilation; I13.2 Hypertensive heart and chronic kidney disease with heart failure and with stage 5 chronic kidney disease, or end stage renal disease; Z68.43 Body mass index [BMI] 50.0-59.9, adult; I50.30 Unspecified diastolic (congestive) heart failure; I50.32 Chronic diastolic (congestive) heart failure; K21.9 Gastro-esophageal reflux disease without esophagitis; E78.5 Hyperlipidemia, unspecified; G25.2 Other specified forms of tremor; Z66 Do not resuscitate; E83.39 Other disorders of phosphorus metabolism; D63.1 Anemia in chronic kidney disease; Z99.2 Dependence on renal dialysis; Z91.040 Latex allergy status; Z88.8 Allergy status to other drugs, medicaments and biological substances; Z91.048 Other nonmedicinal substance allergy status; Z79.899 Other long term (current) drug therapy; Z90.49 Acquired absence of other specified parts of digestive tract; Z98.890 Other specified postprocedural states; Z90.81 Acquired absence of spleen; D63.8 Anemia in other chronic diseases classified elsewhere; G25.0 Essential tremor; S90.02XA Contusion of left ankle, initial encounter
CPT/HCPCS: 36415; 71045; 80048; 80053; 82805; 83605; 83880; 84145; 84484; 85025; 87040; 87804; 90935; 93005; 93970; 94640; 94644; 96365; 96367; 96375; 99213; G0257; G0463; J1100; J2543; J3370; J3475; J7512; J7611; J7620

== ENCOUNTER 2019-07-25 08:14 | Outpatient (CLI) | payer MEDICARE, BC ==
--- NOTE | 2019-07-25 09:11 | RAD ---
PA AND LATERAL VIEWS CHEST: HISTORY: Dyspnea. FINDINGS/IMPRESSION: Comparison is made with the exam of 06/29/2019. The heart size is enlarged. There is mild prominence of the pulmonary vascularity. No lobar consoli dation, pneumothoraces, or large effusions are seen. POS: OFF
== END 2019-07-25 08:15 | disposition home or self-care (01) ==
LOC: RAD 08:14
PROVIDERS: ATTEND Internal Medicine Critical Care Medicine
DX: R06.00 Dyspnea, unspecified (principal); I51.7 Cardiomegaly
CPT/HCPCS: 71046

== ENCOUNTER 2020-06-06 07:16 | Outpatient (CLI) | payer MEDICARE, BC ==
[2020-06-06] MEDS ORDERED: Iopamidol 370 76% 100 ML VIAL ONE (09:08)
--- NOTE | 2020-06-06 09:57 | CT ---
HEAD CT WITH AND WITHOUT CONTRAST: HISTORY: Persistent headache. FINDINGS: NONCONTRAST HEAD CT: No parenchymal hemorrhage. No extraaxial hematoma. No midline shift. Basilar cisterns are patent. Brain volume, age appropriate. Cortical edmondson-white matter differentiation is preserved. No hydrocephalus. Right maxillary sinus disease. Intact calvarium. POSTCONTRAST HEAD CT: No pathologic enhancement of the brain parenchyma. Questionable peripherally enhancing lesion in the medial inferior right frontal lobe. This lesion is along the course of the anterior cerebral arteri es. There is a 2nd focus of possible cortical-based enhancement involving the medial left frontal lo be measuring 0.8 cm. IMPRESSION: Questionable areas of enhancement as described above. Barring any contraindications, brain MRI with and without contrast is recommended. POS: [facility]
== END 2020-06-06 07:17 | disposition home or self-care (01) ==
LOC: CT 07:16
PROVIDERS: ATTEND Family Medicine
DX: G44.52 New daily persistent headache (NDPH) (principal)
CPT/HCPCS: 70470; Q9967

== ENCOUNTER 2020-06-27 09:30 | Outpatient (CLI) | payer MEDICARE, BC ==
--- NOTE | 2020-06-27 11:44 | MRI ---
MRI BRAIN NONCONTRAST: DATE: 06/27/2020 HISTORY: 65-year-old female with ICD-10: "G 44.52, new daily persistent headaches" Abnormal CT with and without contrast of 06/06/2020 COMPARISON: MRI of 08/20/2017. FINDINGS: All of the images are significantly degraded by patient motion. According to the chemistry technologist juli e, the patient has "involuntary tremors." There is no obstructive hydrocephalus. There is no midline shift or any other evidence of mass effect. There is no extra-axial fluid collection. There a re mild chronic ischemic white matter changes due to microvascular atherosclerosis. There is otherwise no evidence of major intra-axial signal abnormality, recent hemorrhage, or restricted diffu toyin. Within the limitations of the severe degradation by motion, there is probably no interval change since 08/21/2019 MRI. IMPRESSION: 1) mild chronic ischemic white matter changes. 2) no other pathology identified. 3) Limited study: All images are severely degraded by patient motion. Therefore, the subtle, tiny foc i of enhancement noted on the CT of 06/06/2020, cannot be evaluated by this MRI.
[2020-06-27] MEDS ORDERED: Magnevist 469MG/ML 20 ML VIAL ONE (13:18)
== END 2020-06-27 09:31 | disposition home or self-care (01) ==
LOC: MRI 09:30
PROVIDERS: ATTEND Family Medicine
DX: G44.52 New daily persistent headache (NDPH) (principal); I67.82 Cerebral ischemia
CPT/HCPCS: 70553; 82565; A9579

== ENCOUNTER 2020-08-07 16:01 | Inpatient (IN) | payer MEDICARE, BC ==
[2020-08-07 17:09] LABS: #Eosinphils 0.1 thou/uL (0.0-0.7); #Lymphocytes 1.7 thou/uL (1.20-3.40); #Monocytes 1.3 thou/uL (0.11-0.59); #Neutrophils 9.9 thou/uL (1.40-6.50); %Basophils 0.1 % (0.0-1.0); %Lymphocytes 12.8 % (21.0-51.0); %Monocytes 10.1 % (0.0-10.0); %Neutrophils 76.1 % (42.0-75.0); Hemoglobin 16.2 g/dL (12.0-16.0); Mean Corpuscular HGB CONC 31.2 g/dL (32.0-36.0); Mean Platelet Volume 9.3 fL (7.4-10.4); Platelet Count 307 thou/uL (130-400); RBC Distribution Width 14.7 % (11.5-14.5); Red Blood Cell (RBC) Count 4.91 mill/uL (4.20-5.40)
--- NOTE | 2020-08-07 17:15 | RAD ---
PORTABLE CHEST 1 VIEW: Date: 08/07/2020 Time: 1623 hours HISTORY: Altered mental status. Patient on dialysis. COMPARISON: 07/25/2019. FINDINGS/IMPRESSION: The heart is enlarged. There is mild prominence of the pulmonary vascularity. No lobar consolidation, pneumothoraces, or large effusions are seen. There is haziness in the lower lung rosario which may be due to developing pneumonia. POS: [facility]
[2020-08-07 17:16] LABS: Acetaminophen Less than 6.0 mcg/mL (10.0-30.0); Alcohol Less than 10 mg/dL (Less than 10); Salicylate Less than 8.0 mg/dL (15.0-30.0)
[2020-08-07 17:19] LABS: ALT (SGPT) 12 U/L (8-55); AST (SGOT) 12 U/L (5-34); Albumin 3.7 g/dL (3.4-4.8); Alkaline Phosphatase 86 U/L (40-110); Anion Gap 23 mmol/L (10-20); BUN (Urea Nitrogen) 38 mg/dL (9.8-20.1); Bilirubin, Total 0.6 mg/dL (0.2-1.2); Calc. Creatinine Clearance 0 mL/min (70-130); Calcium 8.1 mg/dL (7.8-10.44); Carbon Dioxide 28 mmol/L (23-31); Chloride 96 mmol/L (98-107); Globulin 2.9 g/dL (2.4-3.5); Glucose 83 mg/dL (80-115); Lipase 31 U/L (8-78); Potassium 4.9 mmol/L (3.5-5.1); Protein, Total 6.6 g/dL (5.8-8.1); Sodium 142 mmol/L (136-145)
--- NOTE | 2020-08-07 17:28 | CT ---
CT head noncontrast HISTORY: Altered mental status. COMPARISON: 06/06/2020. FINDINGS: There is no evidence of acute intracranial hemorrhage or infarct. The ventricles appear normal in size, shape and position. Dystrophic calcification at the basal gangl ia. There is no mass effect or shift of midline structures. Complete mucosal opacification of the right m axillary sinus. IMPRESSION : No acute intracranial abnormalities are demonstrated. Right maxillary sinusitis.
[2020-08-07 17:34] LABS: Hypochromia SLIGHT = 6-15 cells (100X) (0-5/hpf); MDiff Complete? YES; Macrocytosis SLIGHT = 6-15 cells (100X) (0-5/hpf); Platelet Morphology Comment Appears Adequate; Polychromasia SLIGHT = 2-3 cells (100X) (0-2/hpf); Target Cells SLIGHT = 2-5 cells (100X) (0-1/hpf)
[2020-08-07 17:36] LABS: SARS-CoV-2 NAA Rapid Test Not Detected (NotDetected)
[2020-08-07 17:39] LABS: CKMB 4.3 ng/mL (0-6.6)
[2020-08-07] MEDS ORDERED: Cefepime 2 GM VIAL ONE (18:36)
[2020-08-07] MEDS ORDERED: Vancomycin 1 GM/200 ML BAG ONE (18:36)
[2020-08-07] MEDS ORDERED: cefTRIAXone\\ROCEPHIN 2 GM VIAL ONE (18:40)
[2020-08-07 19:13] LABS: Actual Bicarbonate (HCO3a) 28.4 mEq/L (22-28); Analyzer IN Cardio ER; Base Excess (BEa) -0.6 mEq/L (-2.0 to +3.0); Calcium, Ionized (arterial) 1.03 mmol/L (1.12-1.30); Carboxyhemoglobin (COHb) 3.3 gm% (0.0-3.0); Hemoglobin (Hb) 15.1 g/dL (12.0-16.0); O2 Tension (PaO2), arterial 104.8 mmHg (> 80.0)
[2020-08-07 19:17] LABS: pH, Arterial 7.25 (7.35-7.45)
[2020-08-07 19:18] LABS: CO2 Tension 66.2 mmHg (35.0-45.0); Puncture Site RRA
--- NOTE | 2020-08-07 20:36 | PDOC.FPRHP ---
- History of Present Illness Chief Complaint: AMS History of Present Illness: Patient is a 65F with PMHx of ESRD on HD (//Sat with Dr. Dempsey), HTN, GERD, Asthma, vitamin D deficiency, neuropathy, and sleep apnea (uses CPAP at night) that was sent to the ED from dialysis today for AMS. Patient lives with her nephew and he states that for the past week she has had memory issues by which she will repeat phrases and have difficulty saying exactly what she wants to say, as well as worsening tremors. She endorses a slight intermittent cough and some congestion during the same time. Denies fevers. Endorses some dyspnea. Denies chest pain. Nephew states that she is supposed to use 2L NC at home but has not been wearing it, for which the patient states she has been "lazy." She uses a CPAP at night for sleep apnea and has been reportedly using this. Of note, patient has been evaluated in clinic recently for headaches and worsening tremors for which a brain CT w/ and without contrast demonstrated focal areas of enhancement. Brain MRI w/ and w/o contrast could not clearly define those areas due to patient movement, however upon speaking with radiology it was suggested that the areas could be seen despite patient movement and they did not recommend f/u imaging. Patient saw Shahana Garcia from Dr. Osman's off ice and was started on topamax for her headaches, which she reports have greatly improved. ED Course: 2g rocephin (184), 1g vancomycin (1930), 500ml NS - Allergies/Adverse Reactions Allergies Allergy/AdvReac Type Severity Reaction Status Date / Time adhesive Allergy Rash Verified 08/08/20 05:53 Latex, Natural Rubber Allergy Rash Verified 08/08/20 05:53 levofloxacin [From Levaquin] Allergy Rash Verified 08/08/20 05:53 silver Allergy Verified 08/08/20 05:53 [From Tegaderm AG Mesh] soap [From Betadine] Allergy Rash Verified 08/08/20 05:53 - Home Medications Medication Instructions Recorded Confirmed Type Atorvastatin Calcium [Lipitor] 80 mg PO HS 09/24/17 08/08/20 History Clopidogrel Bisulfate [Plavix] 75 mg PO QPM 09/24/17 08/08/20 History Cyanocobalamin (Vitamin B-12) 1,000 mcg PO DAILY 09/24/17 08/08/20 History [Vitamin B-12] Midodrine HCl [ProAmatine] 5 mg PO Q2DAYS 09/24/17 08/08/20 History Montelukast Sodium [Singulair] 10 mg PO HS 09/24/17 08/08/20 History Pregabalin [Lyrica] 100 mg PO BID 09/24/17 08/08/20 History Primidone [Mysoline] 100 mg PO BID 09/24/17 08/08/20 History predniSONE [Prednisone] 2.5 mg PO QAM 09/24/17 08/08/20 History Budesonide 0.5 mg IH BID 02/18/18 08/08/20 History Calcium Acetate 667 mg PO TID-WM 02/18/18 08/08/20 History Acetaminophen [Tylenol Regular 650 mg PO Q4H PRN tab 05/28/18 08/08/20 Rx Strength] Budesonide-Formoterol [Symbicort 2 puff INH BID 05/28/18 08/08/20 History 160-4.5] Celecoxib 200 mg PO BID-AC 05/28/18 08/08/20 History Fluticasone Propionate [Flonase 1 spray EA NARE HS 05/28/18 08/08/20 History Nasal [place]] Folic Acid 1 mg PO DAILY 05/28/18 08/08/20 History Ipratropium/Albuterol Sulfate 3 ml NEB BID 05/28/18 08/08/20 History Lanthanum Carbonate [Fosrenol] 1,000 mg PO TID-WM 05/28/18 08/08/20 History Loratadine [Claritin] 10 mg PO DAILY 06/28/19 08/08/20 History Pantoprazole [Protonix] 40 mg PO BID 06/28/19 08/08/20 History Sevelamer Carbonate 2.4 gm PO TID-WM 06/28/19 08/08/20 History predniSONE [Prednisone] 20 mg PO DAILY PRN 06/28/19 08/08/20 History Cholecalciferol (Vitamin D3) 50 mcg PO DAILY 08/08/20 08/08/20 History [Vitamin D3] Topiramate 50 mg PO QAM 08/08/20 08/08/20 History predniSONE [Prednisone] 10 mg PO DAILY PRN 08/08/20 08/08/20 History - History PMHx: ESRD on HD (//Sat with Dr. Dempsey), HTN, GERD, Asthma, vitamin D deficiency, neuropathy, and sleep apnea (uses CPAP at night) PSHx: appendectomy, cholecystectomy, hernia repair, splenectomy, l arm fistula, L arm carpal tunnel, R wrist tendon release, parathyroidectomy FHx: non-contributory Social: no alcohol/drugs/smoking - Review of Systems General: denies: fever/chills, weight/appetite/sleep changes Eyes: denies: eye pain, vision changes ENT: denies: nasal congestion, rhinorrhea Respiratory: reports: cough, shortness of breath Cardiovascular: denies: chest pain, edema Gastrointestinal: denies: nausea, vomiting, diarrhea, constipation, abdominal pain Genitourinary: reports: other (patient is anuric). denies: incontinence, dysuria, polyuria Skin: denies: rashes, lesions Musculoskeletal: denies: pain, tenderness, stiffness Neurological: reports: weakness, other (increasing tremors BLE and BUE). denies: numbness, seizure Psychological: denies: anxiety, depression - Vital signs BP: [109/60] HR: [91] RR: [20] Tmax: [99.5F] Pox: [98]% on [Bipap] Wt: [106.14kg] - Physical Exam Constitutional: well developed HEENT: normocephalic and atraumatic, EOMI, grossly normal hearing, normal nasal mucosa, MMM Neck: supple, FROM, trachea midline Chest: no-tender to palpation Heart: RRR, normal S1/S2 Lungs: other (poor respiratory effort, decreased air movement) Abdomen: soft, non-tender, no masses/distention Musculoskeletal: normal structure, normal tone, other (decreased abduction of bilateral arms) Neurological: other (BLE and BUE resting tremor; inable to do finger/nose testing due to tremor but can do heel/dee testing; strength intact BLE and BUE; A&Ox3/4 (day/time), repetitive speech) Skin: good turgor, capillary refill <2 seconds, no jaundice Heme/Lymphatic: other (mild bruising BLE) Psychiatric: normal mood and affect, intact recent and remote memory FMR H&P: Results - Labs Result Diagrams: 08/08/20 04:08 08/08/20 04:08 Lab results: WBC 13.0 thou/uL (4.8-10.8) H 08/07/20 16:43 Hgb 16.2 g/dL (12.0-16.0) H 08/07/20 16:43 Hct 52.0 % (36.0-47.0) H 08/07/20 16:43 MCV 106.0 fL (78.0-98.0) H 08/07/20 16:43 Plt Count 307 thou/uL (130-400) 08/07/20 16:43 Neutrophils % 76.1 % (42.0-75.0) H 08/07/20 16:43 ABG pH 7.25 (7.35-7.45) L* 08/07/20 19:10 ABG pCO2 66.2 mmHg (35.0-45.0) H* 08/07/20 19:10 ABG pO2 104.8 mmHg (> 80.0) H 08/07/20 19:10 Sodium 142 mmol/L (136-145) 08/07/20 16:43 Potassium 4.9 mmol/L (3.5-5.1) 08/07/20 16:43 Chloride 96 mmol/L (98-107) L 08/07/20 16:43 Carbon Dioxide 28 mmol/L (23-31) 08/07/20 16:43 BUN 38 mg/dL (9.8-20.1) H 08/07/20 16:43 Creatinine 7.84 mg/dL (0.6-1.1) H 08/07/20 16:43 Glucose 83 mg/dL (80-115) 08/07/20 16:43 Lactic Acid 2.0 mmol/L (0.5-2.2) 08/07/20 16:44 Calcium 8.1 mg/dL (7.8-10.44) 08/07/20 16:43 Total Bilirubin 0.6 mg/dL (0.2-1.2) 08/07/20 16:43 AST 12 U/L (5-34) 08/07/20 16:43 ALT 12 U/L (8-55) 08/07/20 16:43 Alkaline Phosphatase 86 U/L (40-110) 08/07/20 16:43 CK-MB (CK-2) 4.3 ng/mL (0-6.6) 08/07/20 16:44 B-Natriuretic Peptide 173.1 pg/mL (0-100) H 08/07/20 16:43 Serum Total Protein 6.6 g/dL (5.8-8.1) 08/07/20 16:43 Albumin 3.7 g/dL (3.4-4.8) 08/07/20 16:43 Lipase 31 U/L (8-78) 08/07/20 16:43 - EKG Interpretation EKG: NSR, vr 97, SC 168, QRS 88, QTc 462ms - Radiology Interpretation Chest x-ray Status: report reviewed by me (cardiomegaly, prominent pulmonary vasculature; lower lung haziness suggestive of possible early pna) CT scan - head Status: report reviewed by me (no acute process; right maxillary sinusitis) FMR H&P: A/P - Plan Patient is a 65F with PMHx of ESRD on HD (//Thu with Dr. Dempsey), HTN, GERD, Asthma, vitamin D deficiency, neuropathy, and sleep apnea (uses CPAP at night) admitted for: #Metabolic encephalopathy likely 2/2 acute hypercapneic respiratory failure, possibly 2/2 community acquired pna -patient transferred to ED from HD for AMS, patient is A&O x3/4 -has had worsening repetitive speech and worsening tremors over the last week -BUN 38, has been similar in the past and patient has not missed any of her [facility] HD appts -ABG in ED: pH 7.25, pCO2 66.2, pO2 104.8, 98.4%; patient placed on bipap for hypercapnia -repeat ABG in ED pH 7.25, pCO2 67.2, pO2 86.5, 96.2%, patient re-evaluated and answered questions appropriately without somnolence; will continue bipap overnight -patient has not been wearing her home O2 for the past month but has been using her night-time cpap -COVID/flu negative -will admit to IMCU for further respiratory monitoring and support -CXR demonstrates cardiomegaly, prominence of the pulmonary vasculature, and lower lung haziness suggestive of possible early pna -received 2g rocephin and 1g vanc in the ED -procal 0.46, will continue to monitor respiratory status and pending clinical picture in am can consider continuing abx -will d/c topamax for now as this can be associated with increased drowsiness and tremors -will hold pregabalin as association with drowsiness #Worsening resting tremors -worsening over the last week -patient of Dr. Sierra -CT/MRI of brain within the past few months, see HPI -on primidone at home -can consider consulting neurology in am #Elevated troponin -trop 0.05, EKG demonstrates no ST changes, patient denies chest pain -will continue to trend #ESRD on HD -patient has HD /th/thu, had 3hrs of HD today before being transferred to the ED -Project Builder is Dr. Dempsey -Will consult Dr. Dempsey in am for HD while hospitalized -can discuss medication dosing with Dr. Dempsey, discrepancy with fosrenaol between patient's paperwork and what was last documented -continue other HD meds #HTN? -patient has hx of being borderline hypotensive in clinic -takes midodrine on HD days, will continue while in hospital -no HTN meds at this time #Neuropathy -hold pregabalin for now, can consider re-added in am if patient more alert #Asthma -continue home medication regimen #Sleep apnea -encourage use of cpap while in the hospital Diet: Renal High protein DVT ppx: heparin Dispo: admitted to [facility] for continued respiratory monitoring and support with bipap CODE: Full PCP: Ana Laura SILVESTRE H&P: Upper Level - Plan Date/Time: 08/07/202035 I, [], have evaluated this patient and agree with findings/plan as outlined by email marketing intern resident. Pertinent changes/additions are listed here. Addendum - Attending - Attending Attestation Date/Time: 08/08/20 2916 I personally evaluated the patient and discussed the management with Dr. Mcginnis. I agree with the History, Examination, Assessment and Plan documented above with any addition or exceptions noted below. Besides RICHAR/obesity hypoventilation syndrome it is not clear to me why she has had declining mental status. Admit to IMCU on BiPAP and monitor closely.
[2020-08-07] MEDS ORDERED: Acetaminophen 650 MG Suppository PR PRN (20:44)
[2020-08-07] MEDS ORDERED: Loratadine 10 MG TAB PO PRN (21:43)
[2020-08-07 21:51] LABS: Troponin I 0.051 ng/mL (< 0.028)
[2020-08-07] MEDS: Heparin 5,000 UNITS/ML VIAL SC SCH (22:13)
[2020-08-07 22:38] LABS: Actual Bicarbonate (HCO3a) 28.5 mEq/L (22-28); Analyzer IN Cardio ER; Base Excess (BEa) -0.6 mEq/L (-2.0 to +3.0); Calcium, Ionized (arterial) 1.05 mmol/L (1.12-1.30); Carboxyhemoglobin (COHb) 3.3 gm% (0.0-3.0); Hemoglobin (Hb) 15.3 g/dL (12.0-16.0); O2 Tension (PaO2), arterial 86.5 mmHg (> 80.0)
[2020-08-07 22:42] LABS: CO2 Tension 67.2 mmHg (35.0-45.0); pH, Arterial 7.25 (7.35-7.45)
[2020-08-07 22:43] LABS: Puncture Site RBA
[2020-08-07] MEDS ORDERED: Fluticasone Propionate Nasal Spray 16 gm Bottle NASAL SCH (23:45)
[2020-08-07] MEDS ORDERED: Montelukast Sodium 10 mg Tablet PO SCH (23:45)
[2020-08-07] MEDS ORDERED: Clopidogrel Bisulfate 75 MG TAB ONE (23:46)
[2020-08-08] MEDS: Clopidogrel Bisulfate 75 MG TAB PO SCH ×2 (00:49→21:08)
[2020-08-08] MEDS: Primidone 50 MG TAB PO SCH ×3 (00:49→21:08)
[2020-08-08] MEDS: Midodrine HCl 5 MG TAB PO SCH (00:49)
[2020-08-08] MEDS: Atorvastatin Calcium 40 MG TAB PO SCH ×2 (00:49→21:08)
[2020-08-08 01:10] LABS: Troponin I 0.058 ng/mL (< 0.028)
[2020-08-08 05:01] LABS: Band 1 % (5-11); Hemoglobin 15.4 g/dL (12.0-16.0); Lymphocytes 9 % (21-51); MDiff Complete? YES; Mean Corpuscular HGB CONC 30.9 g/dL (32.0-36.0); Mean Corpuscular Hemoglobin 33.2 pg (27.0-31.0); Mean Platelet Volume 9.2 fL (7.4-10.4); Monocytes 16 % (0-10); Neutrophil 74 % (42-75); Platelet Count 258 thou/uL (130-400); RBC Distribution Width 14.6 % (11.5-14.5); Red Blood Cell (RBC) Count 4.63 mill/uL (4.20-5.40); White Blood Cell (WBC) Count 11.7 thou/uL (4.8-10.8)
[2020-08-08 05:15] LABS: Anion Gap 25 mmol/L (10-20); BUN (Urea Nitrogen) 42 mg/dL (9.8-20.1); Calc. Creatinine Clearance 11 mL/min (70-130); Carbon Dioxide 21 mmol/L (23-31); Chloride 100 mmol/L (98-107); Glucose 88 mg/dL (80-115); Potassium 5.1 mmol/L (3.5-5.1); Sodium 141 mmol/L (136-145)
[2020-08-08 05:22] LABS: Troponin I 0.049 ng/mL (< 0.028)
[2020-08-08 06:11] VITALS: BMI 54.8
[2020-08-08] MEDS: Mometasone 200 MCG/Formoterol 5 MCG 120 PUFF INHALER INH SCH ×2 (06:15→18:10)
[2020-08-08] MEDS ORDERED: VANCOMYCIN IVPB PRN (07:57)
--- NOTE | 2020-08-08 08:42 | PDOC.FM ---
- Subjective Subjective: Patient seen at bedside this morning, is arousable to voice when stating her name but her eyes do not remain open. She does follow commands (squeezes hands, pushes down feet) but does not verbalize any answers. Patient remains on BIPAP for respiratory support. ROS unobtainable. - Objective Vital Signs & Weight: Vital Signs (12 hours) Temp Pulse Ox 08/08/20 06:00 98.0 F 08/08/20 05:50 98 Weight Admit Weight 122.924 kg Weight 123.3 kg Most Recent Monitor Data Heart Rate from ECG 78 NIBP 121/63 NIBP BP-Mean 82 Respiration from ECG 15 SpO2 98 I&O: 08/07/20 08/08/20 08/09/20 06:59 06:59 06:59 Intake Total 0 Output Total 0 Balance 0 Result Diagrams: 08/08/20 04:08 08/08/20 04:08 Phys Exam - Physical Examination Constitutional: NAD arousable to voice, follows simple commands, does not verbalize morbidly obese HEENT: moist MMs Neck: supple Respiratory: no wheezing, no rales, no rhonchi scattered crackles, diminished sounds at bases Cardiovascular: RRR, no significant murmur Gastrointestinal: soft, no distention Musculoskeletal: pulses present Deviation from normal: arouses to name, unable to assess orientation Skin: no rash, normal turgor Dx/Plan (1) Metabolic encephalopathy Code(s): G93.41 - METABOLIC ENCEPHALOPATHY Status: Acute (2) Acute hypercapnic respiratory failure Code(s): J96.02 - ACUTE RESPIRATORY FAILURE WITH HYPERCAPNIA Status: Acute (3) ESRD (end stage renal disease) on dialysis Code(s): N18.6 - END STAGE RENAL DISEASE; Z99.2 - DEPENDENCE ON RENAL DIALYSIS Status: Chronic (4) RICHAR on CPAP Code(s): G47.33 - OBSTRUCTIVE SLEEP APNEA (ADULT) (PEDIATRIC); Z99.89 - DEPENDENCE ON OTHER ENABLING MACHINES AND DEVICES Status: Chronic (5) Obesity hypoventilation syndrome Code(s): E66.2 - MORBID (SEVERE) OBESITY WITH ALVEOLAR HYPOVENTILATION Status: Chronic - Plan Plan: Patient is a 65F with PMHx of ESRD on HD (//Sat with Dr. Dempsey), HTN, GERD, Asthma, vitamin D deficiency, neuropathy, and sleep apnea (uses CPAP at night) admitted for: #Metabolic encephalopathy likely 2/2 acute hypercapneic respiratory failure, possibly 2/2 community acquired pna #Obesity Hypoventilation Syndrome #RICHAR -patient transferred to ED from HD for AMS, patient is A&O x3/4 at baseline -has had worsening repetitive speech and worsening tremors over the last week -currently no tremor this morning -BUN 38, has been similar in the past and patient has not missed any of her [facility] HD appts -ABG in ED: pH 7.25, pCO2 66.2, pO2 104.8, 98.4%; patient placed on bipap for hypercapnia -repeat ABG 2 hours later in ED pH 7.25, pCO2 67.2, pO2 86.5, 96.2%, patient re- evaluated and answered questions appropriately without somnolence -continue BIPAP for respiratory support -patient has not been wearing her home O2 for the past month but has been using her night-time CPAP -COVID/flu negative -CXR demonstrates cardiomegaly, prominence of the pulmonary vasculature, and lower lung haziness suggestive of possible early pna -received 2g rocephin and 1g vanc in the ED--will continue Rocephin for coverage -procal 0.46 -will d/c topamax for now as this can be associated with increased drowsiness and tremors -will hold pregabalin as association with drowsiness -consult Pulmonology, Dr. Parmar--appreciate recs #Worsening resting tremors -worsening over the last week, none apparent on exam this morning -patient of Dr. Sierra, has next appointment in August -CT/MRI of brain within the past few months, see HPI -on primidone at home -can consider consulting neurology if tremors worsening #Elevated troponin -trop 0.051 > 0.058 > 0.049 -EKG demonstrates no ST changes, patient denies chest pain #ESRD on HD -patient has HD tues/th/thu, had 3hrs of HD today before being transferred to the ED -Consult Crimper Assembler, Dr. Dempsey--appreciate recs, will arrange for HD while inpatient -verified Fosrenol dosing is [address] Dempsey -continue other HD meds #Hx of HTN -patient has hx of being borderline hypotensive in clinic -takes midodrine on HD days, will continue while in hospital -no HTN meds at this time #Neuropathy -hold pregabalin for now, can consider re-added in am if patient more alert #Asthma -continue home medication regimen Diet: Renal High protein DVT ppx: heparin CODE: Full PCP: Ana Laura Dispo: Guarded, admitted to inpatient in IMCU for continued respiratory monitoring and support with BIPAP. Restart antibiotics at direction of Pulmonology, appreciate recs. Resume scheduled dialysis under direction of N ephrology, appreciate recs. Addendum - Attending - Attending Attestation Date/Time: 08/08/20 2040 I personally evaluated the patient and discussed the management with Dr. Palmer. I agree with the History, Examination, Assessment and Plan documented above with any addition or exceptions noted below. Arouses to voice and answers in 1 word sentences. Guarded prognosis and I feel intubation may be likely. Contact nephro for dialysis. Pulm/cc on board.
[2020-08-08] MEDS ORDERED: Budesonide 0.5 MG/2 ML NEB NEB SCH (09:00)
[2020-08-08] MEDS: cefTRIAXone\\ROCEPHIN 1 GM in Sodium Chloride 0.9% 100 ML IVPB SCH (09:13)
[2020-08-08] MEDS: predniSONE 5 MG TAB PO SCH (09:14)
[2020-08-08] MEDS: Sevelamer Carbonate 800 MG TAB PO SCH ×3 (09:14→17:40)
[2020-08-08] MEDS: Cyanocobalamin (Vitamin B-12) 1,000 MCG TAB PO SCH (09:14)
[2020-08-08] MEDS: Calcium Acetate 667 MG CAP PO SCH ×3 (09:14→17:40)
[2020-08-08] MEDS: Lanthanum Carbonate 500 mg Tablet PO SCH ×3 (09:14→17:40)
[2020-08-08] MEDS: Heparin 5,000 UNITS/ML VIAL SC SCH ×3 (09:15→21:08)
[2020-08-08] MEDS ORDERED: HOLD VANCOMYCIN FOR LEVEL >20 IVP SCH (10:30)
[2020-08-08] MEDS ORDERED: Vancomycin 1 GM in Premix Bag 1 BAG IVPB SCH ×2 (10:30→10:45)
[2020-08-08] MEDS ORDERED: Vancomycin HCl 750 MG in Sodium Chloride 0.9% 250 ML 250 ML IVPB SCH (10:30)
[2020-08-08] MEDS ORDERED: Vancomycin HCl 1.5 GM in Sodium Chloride 0.9% 250 ML 300 ML IVPB SCH (10:30)
[2020-08-08] MEDS ORDERED: Vancomycin HCl 1.25 GM in Sodium Chloride 0.9% 250 ML 250 ML IVPB SCH (10:30)
--- NOTE | 2020-08-08 11:29 | CON ---
DATE OF CONSULTATION: 08/08/2020 REASON FOR CONSULTATION: The patient is on BiPAP and has altered mental status. CONSULTING PHYSICIAN: Family medicine residency service. HISTORY OF PRESENT ILLNESS: Ms. De La Vega is a 65-year-old female, who actually is known to our service in the past. She is a clinic patient of Dr. Toribio, whom he follows for chronic persistent asthma. The patient presented to the emergency room from dialysis yesterday. She apparently was having memory issues, becoming more forgetful. She had workup demonstrating a mild to moderate respiratory acidosis. She was placed on BiPAP, but she does wear a CPAP at home at night. PAST MEDICAL HISTORY: 1. Chronic persistent asthma. 2. End-stage renal disease, requiring hemodialysis. 3. Vitamin D deficiency. 4. RICHAR. 5. Peripheral neuropathy. 6. Obesity hypoventilation syndrome. 7. Parathyroidectomy. 8. Splenectomy. 9. Bilateral carpal tunnel release. 10. Appendectomy. 11. Left upper arm AV access for dialysis. ALLERGIES: LEVAQUIN, LATEX, PLASTICS, BETADINE, AND ADHESIVE TAPE. MEDICATIONS: Prior to admission; 1. Atorvastatin 80 mg nightly. 2. Plavix 75 mg daily. 3. Vitamin B12 1000 mcg daily. 4. Midodrine 5 mg every two days. 5. Singulair 10 mg nightly. 6. Nortriptyline 50 mg nightly. 7. Lyrica 100 mg b.i.d. 8. Mysoline 100 mg b.i.d. 9. Prednisone 2.5 mg daily. 10. Budesonide nebs 0.5 mg b.i.d. 11. Calcium acetate 667 mg t.i.d. 12. Extra-strength Tylenol 650 mg every 4 hours as needed. 13. Symbicort 160/4.5 two puffs b.i.d. 14. Celebrex 200 mg b.i.d. 15. Fluticasone nasal spray. 16. Folate 1 mg daily. 17. DuoNeb twice daily as needed. 18. Fosrenol 1000 mg t.i.d. 19. ProAir HFA metered dose inhaler as needed. 20. Sensipar 60 mg daily. 21. Claritin 10 mg daily. 22. Nystatin topical solution b.i.d. 23. Protonix 40 mg b.i.d. 24. Sevelamer 2.4 g t.i.d. 25. Another prednisone prescription listed at 10 mg daily. 26. Tessalon 100 mg t.i.d. SOCIAL HISTORY: Nonsmoker and nondrinker. REVIEW OF SYSTEMS: Cannot be obtained as patient is obtunded. PHYSICAL EXAMINATION: VITAL SIGNS: Temperature 98.0, pulse rate 78, blood pressure 121/63, and O2 saturation 98%. The patient is currently on mechanical ventilation, seems comfortable. HEENT: Pupils are 3 mm, reactive. Gaze preference downward. Oropharynx difficult to assess because she is on BiPAP. NECK: No JVD. LUNGS: Fairly good air movement. No wheezing. CARDIOVASCULAR: S1 and S2 distant. No murmur. ABDOMEN: Soft and nontender. She had some type of lower abdominal surgery. EXTREMITIES: No clubbing or cyanosis. LABORATORY DATA: Sodium 142, potassium 4.9, chloride 96, CO2 of 28, BUN 38, creatinine 7.8, glucose 83, BNP 173, troponin 0.05, pH 7.25, pCO2 of 67, PO2 of 86 that was on BiPAP 14/6 with FiO2 35%. White blood cell count 11.7, hematocrit 49.8, and platelet count 258. Tox-screen showed no salicylates, acetaminophen or plasma alcohol. COVID test is negative. Chest x-ray shows some cardiomegaly without evidence of profound mass, effusion, or infiltrate. ASSESSMENT: This is a 65-year-old female, with multiple medical problems, who is presenting with altered mental status. There are several reason she could have altered mental status; of course decompensation of her obesity hypoventilation syndrome could be a cause, but I would expect her blood gas to be much worse than it is. Sepsis could be a cause. Ingestion of medications or use of chronic sedation medication such as antidepressants could lead to this. Multiple other medical problems are as listed above. PLAN: 1. Would recommend watching her like you are. 2. I would consider cultures if not drawn and empirically treating her for sepsis. 3. Send urine drug screen if she is able to produce urine. 4. Withhold any sedating medications. 5. I will inform Dr. Mcdonnell of the patient's hospitalization. Job ID: [id number]
--- NOTE | 2020-08-08 12:49 | CON ---
DATE OF CONSULTATION: 08/08/2020 HISTORY OF PRESENT ILLNESS: Ms. Rondon is a 65-year-old female with ESRD - currently on maintenance hemodialysis and was admitted due to mental status change. At the end of the treatment with dialysis, the patient was noted to be a bit more confused with decreased mentation. There was no associated chest pain, syncopal episode, fever, chills, nausea, or vomiting with this. The patient also has history of headache and worsening tremors. We are now being consulted for maintenance hemodialysis. This morning, the patient is mentating better than yesterday. REVIEW OF SYSTEMS: No syncopal episode. Positive for mental status change. No nausea. No vomiting. Appetite and energy level are decreased. No abdominal pain. No fever or chills. No shortness of breath. No chest pain. No hematochezia. No melena. No hematemesis. HOME MEDICATIONS: Include the followin. Atorvastatin 80 mg tablet at bedtime. 2. Clopidogrel 75 mg q.p.m. 3. Vitamin B12 of 1000 mcg daily. 4. Midodrine 5 mg every 2 days - before dialysis days. 5. Singulair 10 mg at bedtime. 6. Lyrica 100 mg p.o. b.i.d. 7. Primidone 100 mg p.o. b.i.d. 8. Prednisone 2.5 mg p.o. q.a.m. 9. Calcium acetate 667 mg p.o. t.i.d. 10. Fosrenol 1000 mg p.o. t.i.d. with meals. 11. Symbicort 2 puffs b.i.d. 12. Celecoxib 200 mg p.o. b.i.d. 13. Folic acid 1 mg daily. 14. Loratadine 10 mg daily. 15. Protonix 40 mg tab p.o. with meals. 16. Prednisone 20 mg once a day. 17. Topiramate 50 mg at bedtime. 18. Prednisone 10 mg daily. PAST MEDICAL HISTORY: 1. ESRD, on maintenance hemodialysis of Thursday, , Thursday. 2. History of morbid obesity. 3. Chronic asthma. 4. Hypertension. 5. GERD. 6. Hyperlipidemia. 7. Hyperphosphatemia. 8. Obstructive sleep apnea. PAST SURGICAL HISTORY: 1. Status post upper and lower GI endoscopy. 2. Status post cuffed hemodialysis catheter placement. 3. Status post carpal tunnel surgery. 4. Status post AV fistula placement. 5. Status post parathyroidectomy. 6. Status post cholecystectomy. 7. Status post hernia repair. 8. Status post splenectomy. SOCIAL HISTORY: The patient is single, lives with her niece. 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 Lives in [place]. No alcohol intake. No smoking. No children. No drug abuse. Sedentary lifestyle. Status post multiple blood transfusions. ALLERGIES: NONE. TRAUMA: None. IMMUNIZATIONS: Up-to-date. HOSPITALIZATIONS: Please see past medical history. FAMILY HISTORY: Positive family history of ESRD. Sister on dialysis - . PHYSICAL EXAMINATION: VITAL SIGNS: Blood pressure is noted at 130/70, heart rate 70, O2 saturation 98%. GENERAL: Patient is awake, on BiPAP, not in distress, obese. SKIN: Adequate turgor. HEENT: She has pinkish conjunctivae. Anicteric sclerae. No neck mass. No carotid bruits. No JVD. CHEST: No deformities. LUNGS: Clear breath sounds. No wheezing. No crackles. HEART: Normal sinus rhythm. No murmurs. No gallops. No rubs. ABDOMEN: Globular, soft, nontender. No masses. EXTREMITIES: No edema. No deformities. NEUROLOGIC: The patient is awake. Somewhat lethargic. Can follow commands. Oriented. Moving all extremities. LABORATORY DATA: August 08, 2020; white count 11.7, hemoglobin 15.4. Sodium 141, potassium 5.1, chloride 100, carbon dioxide 21, BUN 42, creatinine 8.69, glucose 88, calcium 8. August 07, 2020; chest x-ray shows inc lung markings in lower lung rosario. CT scan of the brain, August 07, 2020, shows no acute intracranial abnormalities. ASSESSMENT AND PLAN: 1. Mental status change - consider the possibility this could be related to her Lyrica. I have tried to adjust it downwards in the past, but the patient declined to adjust it for renal dosing. I would hold off the Lyrica temporarily or adjust it downwards. Please note, CT scan of the brain was within normal. 2. End-stage renal disease, stable. We will continue current Thursday, , and Thursday hemodialysis regimen. Review of my last Kt/V suggests she is adequately dialyzed with the current dialysis regimen. 3. Hyperphosphatemia. Continue phosphate binders. Thank you for the consult. We will continue to follow. Job ID: [id number]
[2020-08-08] MEDS: Pantoprazole 40 MG GRANULES PACKET PO SCH (21:07)
[2020-08-08] MEDS: Montelukast Sodium 10 mg Tablet PO SCH (21:08)
[2020-08-08] MEDS: Fluticasone Propionate Nasal Spray 16 gm Bottle NASAL SCH (21:09)
[2020-08-09 07:14] LABS: Hemoglobin 14.7 g/dL (12.0-16.0); Mean Corpuscular HGB CONC 31.2 g/dL (32.0-36.0); Mean Corpuscular Hemoglobin 32.5 pg (27.0-31.0); Mean Platelet Volume 9.4 fL (7.4-10.4); Platelet Count 293 thou/uL (130-400); RBC Distribution Width 14.3 % (11.5-14.5); Red Blood Cell (RBC) Count 4.51 mill/uL (4.20-5.40); White Blood Cell (WBC) Count 12.7 thou/uL (4.8-10.8)
--- NOTE | 2020-08-09 07:57 | PDOC.FM ---
- Subjective Subjective: Patient feeling better this morning, is more alert. Oriented to person and place. States she wants to take her BIPAP mask off and go home. Patient counseled that she needs to have dialysis done today and she is agreeable to this. Denies any pain or tremors at this time. - Objective MAR Reviewed: Yes Vital Signs & Weight: Vital Signs (12 hours) Temp Pulse Pulse Ox 08/09/20 07:18 97 08/09/20 07:00 98.7 F 08/09/20 04:00 98.3 F 08/09/20 02:17 87 08/09/20 00:00 99.0 F 08/08/20 22:00 79 08/08/20 20:00 97.9 F 95 Weight Admit Weight 125.2 g Weight 123.3 kg Most Recent Monitor Data Heart Rate from ECG 81 NIBP 116/75 NIBP BP-Mean 88 Respiration from ECG 16 SpO2 98 I&O: 08/08/20 08/09/20 08/10/20 06:59 06:59 06:59 Intake Total 0 738 0 Output Total 0 70 70 Balance 0 668 -70 Result Diagrams: 08/09/20 06:49 08/08/20 04:08 Phys Exam - Physical Examination Constitutional: NAD morbidly obese, speaks in short phrases HEENT: moist MMs, sclera anicteric Neck: supple Respiratory: clear to auscultation bilateral Cardiovascular: RRR, no significant murmur Gastrointestinal: soft, no distention Musculoskeletal: pulses present Psychiatric: normal affect Skin: no rash, normal turgor Dx/Plan (1) Metabolic encephalopathy Code(s): G93.41 - METABOLIC ENCEPHALOPATHY Status: Acute (2) Acute hypercapnic respiratory failure Code(s): J96.02 - ACUTE RESPIRATORY FAILURE WITH HYPERCAPNIA Status: Acute (3) ESRD (end stage renal disease) on dialysis Code(s): N18.6 - END STAGE RENAL DISEASE; Z99.2 - DEPENDENCE ON RENAL DIALYSIS Status: Chronic (4) RICHAR on CPAP Code(s): G47.33 - OBSTRUCTIVE SLEEP APNEA (ADULT) (PEDIATRIC); Z99.89 - DEPENDENCE ON OTHER ENABLING MACHINES AND DEVICES Status: Chronic (5) Obesity hypoventilation syndrome Code(s): E66.2 - MORBID (SEVERE) OBESITY WITH ALVEOLAR HYPOVENTILATION Status: Chronic - Plan Plan: Patient is a 65F with PMHx of ESRD on HD (//Sat with Dr. Dempsey), HTN, GERD, Asthma, vitamin D deficiency, neuropathy, and sleep apnea (uses CPAP at night) admitted for: #Metabolic encephalopathy likely 2/2 acute hypercapneic respiratory failure, possibly 2/2 community acquired pna #Obesity Hypoventilation Syndrome #RICHAR -patient transferred to ED from HD for AMS, patient is A&O x3/4 at baseline -has had worsening repetitive speech and worsening tremors over the last week -currently no tremor in last 24 hours -BUN 38, has been similar in the past and patient has not missed any of her [facility] HD appts -ABG in ED: pH 7.25, pCO2 66.2, pO2 104.8, 98.4%; patient placed on bipap for hypercapnia -repeat ABG 2 hours later in ED pH 7.25, pCO2 67.2, pO2 86.5, 96.2%, patient re- evaluated and answered questions appropriately without somnolence -continue BIPAP for respiratory support--typically wears CPAP at night, will pe rform trial on N/C this morning and repeat ABG after 2-3 hours -patient has not been wearing her home O2 for the past month but has been using her night-time CPAP -COVID/flu negative -CXR demonstrates cardiomegaly, prominence of the pulmonary vasculature, and lower lung haziness suggestive of possible early pna -received 2g rocephin and 1g vanc in the ED--will continue Rocephin & Vancomycin for coverage -procal 0.46 -Ammonia 50 -serum drug screen negative, unable to perform UDS -will d/c topamax for now as this can be associated with increased drowsiness and tremors -will hold pregabalin as association with drowsiness -consult Pulmonology, Dr. Parmar--appreciate recs #Worsening resting tremors -worsening over the last week, none apparent on exam this morning -patient of Dr. Sierra, has next appointment in August -CT/MRI of brain within the past few months, see HPI -on primidone at home -can consider consulting neurology if tremors worsening #Elevated troponin -trop 0.051 > 0.058 > 0.049 -EKG demonstrates no ST changes, patient denies chest pain #ESRD on HD -patient has HD tues/th/sat, had 3hrs of HD 08/07 before being transferred to the ED -Consult Acid Blower, Dr. Dempsey--appreciate recs, will arrange for HD while inpatient -verified Fosrenol dosing is [address] Dempsey -continue other HD meds #Hx of HTN -patient has hx of being borderline hypotensive in clinic -takes midodrine on HD days, will continue while in hospital -no HTN meds at this time #Neuropathy -hold pregabalin for now, can consider re-added in am if patient more alert #Asthma -continue home medication regimen Diet: Renal High protein DVT ppx: heparin CODE: Full PCP: Ana Laura Dispo: Stable, admitted to inpatient in IMCU for continued respiratory monitoring and support. Pulmonology & Nephrology consulted, appreciate recs. Resume scheduled dialysis today. Trial of N/C this morning. Addendum - Attending - Attending Attestation Date/Time: 08/09/20 0901 I personally evaluated the patient and discussed the management with Dr. Palmer. I agree with the History, Examination, Assessment and Plan documented above with any addition or exceptions noted below. Looking better this morning. Will trial off BiPAP. Dialysis today.
[2020-08-09] MEDS ORDERED: Dextrose 50% Abboject 50 ML SYRINGE ONE (07:59)
[2020-08-09] MEDS: cefTRIAXone\\ROCEPHIN 1 GM in Sodium Chloride 0.9% 100 ML IVPB SCH (08:04)
[2020-08-09] MEDS: Sevelamer Carbonate 800 MG TAB PO SCH ×3 (08:06→16:49)
[2020-08-09] MEDS: Heparin 5,000 UNITS/ML VIAL SC SCH ×3 (08:07→21:23)
[2020-08-09] MEDS: predniSONE 5 MG TAB PO SCH (08:07)
[2020-08-09] MEDS: Calcium Acetate 667 MG CAP PO SCH ×3 (08:07→16:49)
[2020-08-09] MEDS: Primidone 50 MG TAB PO SCH ×2 (08:08→22:30)
[2020-08-09] MEDS: Pantoprazole 40 MG GRANULES PACKET PO SCH (08:08)
[2020-08-09] MEDS: Lanthanum Carbonate 500 mg Tablet PO SCH ×3 (08:09→16:49)
[2020-08-09] MEDS: Cyanocobalamin (Vitamin B-12) 1,000 MCG TAB PO SCH (08:22)
[2020-08-09 08:35] LABS: #Eosinphils 0.2 thou/uL (0.0-0.7); #Lymphocytes 2.1 thou/uL (1.20-3.40); #Monocytes 1.7 thou/uL (0.11-0.59); #Neutrophils 8.6 thou/uL (1.40-6.50); %Basophils 0.1 % (0.0-1.0); %Eosinophils 1.7 % (0.0-10.0); %Lymphocytes 16.7 % (21.0-51.0); %Monocytes 13.5 % (0.0-10.0); Band 2 % (5-11); Lymphocytes 21 % (21-51); MDiff Complete? YES; Monocytes 10 % (0-10); Neutrophil 66 % (42-75); Platelet Morphology Comment Appears Adequate; RBC Morphology Normal
[2020-08-09 09:33] LABS: Vancomycin, Random 21.9 ug/mL (See Comment)
[2020-08-09 11:53] LABS: ALT (SGPT) 10 U/L (8-55); AST (SGOT) 13 U/L (5-34); Albumin 3.2 g/dL (3.4-4.8); Alkaline Phosphatase 55 U/L (40-110); Anion Gap 29 mmol/L (10-20); BUN (Urea Nitrogen) 59 mg/dL (9.8-20.1); Bilirubin, Total 0.5 mg/dL (0.2-1.2); Calc. Creatinine Clearance 9 mL/min (70-130); Calcium 7.9 mg/dL (7.8-10.44); Carbon Dioxide 18 mmol/L (23-31); Chloride 97 mmol/L (98-107); Globulin 3.1 g/dL (2.4-3.5); Potassium 5.3 mmol/L (3.5-5.1); Protein, Total 6.3 g/dL (5.8-8.1); Sodium 139 mmol/L (136-145)
[2020-08-09 11:58] LABS: Glucose 49 mg/dL (80-115)
--- NOTE | 2020-08-09 11:58 | PQF ---
CLINICAL DOCUMENTATION CLARIFICATION FORM: Dear Dr. LEANNE JONES Date: 08-09-20 Please exercise your independent, professional judgment in responding to the clarification form. Clinical indicators are provided on the bottom of this form for your review. Please check appropriate box(es) to clarify if the following diagnosis has been ruled in our ruled out: SEPSIS [ ] Ruled in diagnosis [ ] Continue to treat [ ] Resolved [ x ] Ruled out diagnosis [ ] Other diagnosis [ ] Unable to determine In addition, please specify: Present on Admission (POA): [ x ] Yes [ ] No [ ] Unable to determine For continuity of documentation, please document condition throughout progress notes and discharge summary. Thank You. To be completed by CDI/Coding staff for physician review: CLINICAL INDICATORS - SIGNS / SYMPTOMS / LABS / RESULTS AND LOCATION IN MR: ER DX: 08-07-20: AMS, METABOLIC ENCEPHALOPATHY, SEPSIS 2/2 PNA ER NOTES 08-07-20: PULSE: 106, BP: 75/60, 94/67, RR: 30, 23, 27 WBC: 08-07-20: 13.0, 11.7, 12.7 H&P: 08-07-20: METABOLIC ENCEPHALOPATHY LIKELY 2/2 ACUTE HYPERCAPNIC RESPIRATORY FAILURE, POSSIBLY 2/2 COMMUNITY ACQUIRED PNA RISK FACTORS / RESULTS AND LOCATION IN MR: H&P: 08-07-20: METABOLIC ENCEPHALOPATHY LIKELY 2/2 ACUTE HYPERPNEIC RESPIRATORY FAILURE, POSSIBLY 2/2 COMMUNITY ACQUIRED PNA TREATMENTS / RESULTS AND LOCATION IN MR: ER NOTES 08-09-20: VANCOMYCIN IV, NS IVF, CEFTRIAXONE IV CDS Signature: Becki Ezraanna Phone #: [phone] Date: 08-09-20 This is a permanent part of the Medical Record [facility]
[2020-08-09] MEDS: Hydrocortisone Sod Succ/PF 100 mg/2 ml Vial IVP SCH ×2 (12:00→21:23)
[2020-08-09 12:08] LABS: Actual Bicarbonate (HCO3a) 23.9 mEq/L (22-28); Base Excess (BEa) -2.5 mEq/L (-2.0 to +3.0); CO2 Tension 47.2 mmHg (35.0-45.0); Carboxyhemoglobin (COHb) 3.7 gm% (0.0-3.0); Hemoglobin (Hb) 14.6 g/dL (12.0-16.0); O2 Tension (PaO2), arterial 83.3 mmHg (> 80.0); Potassium - ABG Lab 3.79 mmol/L (3.70-5.30); pH, Arterial 7.32 (7.35-7.45)
[2020-08-09 12:09] LABS: Puncture Site LRA
--- NOTE | 2020-08-09 12:09 | PRG ---
DATE OF SERVICE: 08/09/2020 SUBJECTIVE: Deloris De La Vega is still confused. She recognized me when I walked into the room and she does not recall coming to the hospital. OBJECTIVE: VITAL SIGNS: Blood pressure 123/75, heart rate is 94, respiratory rate is 21. LUNGS: Clear anteriorly. HEART: Regular rhythm. ABDOMEN: Soft. She says she feels like she is having active asthma, although I do not really hear much in the way of wheezes. She is chronically steroid dependent, so in theory, some of her confusion could be actually adrenal crisis. I will start her on some hydrocortisone now if we see an improvement. Cultures are negative so far. She will remain in the critical care unit. Job ID: [id number]
[2020-08-09] MEDS: Mometasone 200 MCG/Formoterol 5 MCG 120 PUFF INHALER INH SCH ×2 (12:20→18:22)
--- NOTE | 2020-08-09 12:39 | PRG ---
DATE OF SERVICE: 08/09/2020 SUBJECTIVE: Ms. De La Vega is a 65-year-old female with ESRD, currently on maintenance hemodialysis. We are following her up for management of her ESRD. The patient is undergoing a 3 hour and 15 minute dialysis today. Attempting a 3.5 L of fluid removal. The patient was initially admitted for mental status change. Dorcasa is now currently on hold. No other complaints. No chest pain or shortness of breath. OBJECTIVE: VITAL SIGNS: Blood pressure 112/61, heart rate 94, respiratory rate 17, O2 saturation 96%. GENERAL: Awake, supine, comfortable, obese, not in distress. SKIN: Adequate turgor. HEENT: She has pinkish conjunctivae. Anicteric sclerae. No neck mass. No carotid bruits. No JVD. CHEST: No deformities. LUNGS: Clear breath sounds. No wheezing. No crackles. HEART: Normal sinus rhythm. No murmur. No gallops. No rubs. ABDOMEN: Globular, soft, nontender. No masses. EXTREMITIES: No edema. No deformities. MEDICATIONS: On August 09, 2020, was reviewed. LABORATORY DATA: On August 09, 2020 white count 12.7, hemoglobin 14.7. Sodium 139, potassium 5.3, chloride 97, carbon dioxide 18, BUN 59, creatinine 11.67, glucose 49, calcium 7.9, AST 13, ALT 10, albumin 3.2. ASSESSMENT AND PLAN: 1. End-stage renal disease, stable. We will continue current hemodialysis regimen. Currently undergoing 3 hour and 15 minute dialysis. Attempting 3.5 L of fluid removal as tolerated by the patient. 2. Mental status change-this could have been drug-induced from the Lyrica. Currently on hold. She probably could go back to a lower dose of earlier for her neuropathy. 3. Chronic anemia. No indication for any Epogen. 4. Agree with current management. Job ID: [id number]
[2020-08-09 15:40] LABS: HBSAg Index 0.19 S/CO (0-0.99); Hep B Surf Ag Non-Reactive S/CO (NonReactive)
[2020-08-09] MEDS ORDERED: Heparin 10,000 UNITS/ 10 ML VIAL ONE (16:58)
[2020-08-09] MEDS: Montelukast Sodium 10 mg Tablet PO SCH (21:23)
[2020-08-09] MEDS: Atorvastatin Calcium 40 MG TAB PO SCH (21:23)
[2020-08-09] MEDS: Clopidogrel Bisulfate 75 MG TAB PO SCH (21:23)
[2020-08-09] MEDS: Fluticasone Propionate Nasal Spray 16 gm Bottle NASAL SCH (22:26)
[2020-08-09] MEDS: Midodrine HCl 5 MG TAB PO SCH (22:54)
[2020-08-10] MEDS: Hydrocortisone Sod Succ/PF 100 mg/2 ml Vial IVP SCH ×3 (03:21→22:13)
[2020-08-10] MEDS: Melatonin 3 MG TAB PO PRN ×2 (03:21→23:44)
[2020-08-10] MEDS: Mometasone 200 MCG/Formoterol 5 MCG 120 PUFF INHALER INH SCH ×2 (06:44→19:44)
--- NOTE | 2020-08-10 07:57 | PDOC.FM ---
- Subjective Subjective: Patient feeling well this morning. States she wants to take the BIPAP mask off due to discomfort. States breathing is "okay". Denies any pain or tremors. Is alert, oriented to person, place, month. I spoke to her nephew Rasta yesterday (primary caregiver) and he states that patient has been taking Lyrica for her neuropathy although she was told to previously try to cut back on use. He also states that ever since starting Topamax about 2-3 weeks ago that the patient "has not been herself" and has been more confused than usual. - Objective MAR Reviewed: Yes Vital Signs & Weight: Vital Signs (12 hours) Temp Pulse Resp Pulse Ox 08/10/20 07:45 62 100 08/10/20 07:20 100 08/10/20 07:00 98.4 F 08/10/20 06:44 62 20 100 08/10/20 04:00 98.5 F 08/10/20 02:42 89 08/09/20 23:00 98.7 F 08/09/20 22:01 93 18 99 08/09/20 20:00 100 Weight Admit Weight 125.2 g Weight 123.3 kg Most Recent Monitor Data Heart Rate from ECG 66 NIBP 172/80 NIBP BP-Mean 110 Respiration from ECG 19 SpO2 100 I&O: 08/09/20 08/10/20 08/11/20 06:59 06:59 06:59 Intake Total 738 1173 Output Total 70 280 0 Balance 668 893 0 Result Diagrams: 08/09/20 06:49 08/09/20 09:03 Phys Exam - Physical Examination Constitutional: NAD morbidly obese HEENT: moist MMs, sclera anicteric Neck: supple Respiratory: no wheezing, clear to auscultation bilateral Cardiovascular: RRR, no significant murmur Gastrointestinal: soft, no distention Musculoskeletal: pulses present Psychiatric: normal affect, A&O x 3 Skin: no rash Dx/Plan (1) Metabolic encephalopathy Code(s): G93.41 - METABOLIC ENCEPHALOPATHY Status: Acute (2) Acute hypercapnic respiratory failure Code(s): J96.02 - ACUTE RESPIRATORY FAILURE WITH HYPERCAPNIA Status: Acute (3) ESRD (end stage renal disease) on dialysis Code(s): N18.6 - END STAGE RENAL DISEASE; Z99.2 - DEPENDENCE ON RENAL DIALYSIS Status: Chronic (4) RICHAR on CPAP Code(s): G47.33 - OBSTRUCTIVE SLEEP APNEA (ADULT) (PEDIATRIC); Z99.89 - DEPENDENCE ON OTHER ENABLING MACHINES AND DEVICES Status: Chronic (5) Obesity hypoventilation syndrome Code(s): E66.2 - MORBID (SEVERE) OBESITY WITH ALVEOLAR HYPOVENTILATION Status: Chronic - Plan Plan: Patient is a 65F with PMHx of ESRD on HD (//Thu with Dr. Dempsey), HTN, GERD, Asthma, vitamin D deficiency, neuropathy, and sleep apnea (uses CPAP at night) admitted for: #Metabolic encephalopathy likely 2/2 acute hypercapneic respiratory failure #Obesity Hypoventilation Syndrome #RICHAR -patient transferred to ED from HD for AMS, patient is A&O x3/4 at baseline -has had worsening repetitive speech and worsening tremors over the last week; patient has not been wearing her home O2 for the past month but has been using her night-time CPAP -currently no tremor in last 48 hours -BUN 38, has been similar in the past and patient has not missed any of her [facility] HD appts -ABG in ED: pH 7.25, pCO2 66.2, pO2 104.8, 98.4%; patient placed on bipap for hypercapnia -repeat ABG 2 hours later in ED pH 7.25, pCO2 67.2, pO2 86.5, 96.2%, patient re- evaluated and answered questions appropriately without somnolence -continue BIPAP/CPAP for respiratory support at night, transition to N/C during the daytime as tolerated -COVID/flu negative -CXR demonstrates cardiomegaly, prominence of the pulmonary vasculature, and lower lung haziness suggestive of possible early pna -received 2g rocephin and 1g vanc in the ED--will continue Rocephin & Vancomycin for coverage -cultures negative so far -procal 0.46 -Ammonia 50 -serum drug screen negative, unable to perform UDS -will d/c topamax for now as this can be associated with increased drowsiness and tremors -will hold pregabalin as association with drowsiness -consult Pulmonology, Dr. Parmar & Dr. Mcdonnell--appreciate recs -started Hydrocortisone on 08/09 #Worsening resting tremors -worsening over the last week, none apparent on exam this morning -patient of Dr. Sierra, has next appointment in August -CT/MRI of brain within the past few months, see HPI -on primidone at home -can consider consulting neurology if tremors worsening #Elevated troponin -trop 0.051 > 0.058 > 0.049 -EKG demonstrates no ST changes, patient denies chest pain #ESRD on HD -patient has HD tues/thurs/sat, had 3hrs of HD 08/07 before being transferred to the ED -Consult Public Speaking Teacher, Dr. Dempsey--appreciate recs, will arrange for HD while inpatient -verified Fosrenol dosing is [address] Dempsey -continue other HD meds #Hx of HTN -patient has hx of being borderline hypotensive in clinic -takes midodrine on HD days, will continue while in hospital -no HTN meds at this time #Neuropathy -hold pregabalin for now, can consider re-added in am if patient more alert #Asthma -continue home medication regimen Diet: Renal High protein DVT ppx: heparin CODE: Full PCP: Ana Laura Dispo: Stable, admitted to inpatient in IM for continued respiratory monitoring and support. Pulmonology & Nephrology consulted, appreciate recs. Consider transition back as tolerated to CPAP at night, N/C during day as this is patient's home regimen given patient's current improved mentation.
[2020-08-10] MEDS: cefTRIAXone\\ROCEPHIN 1 GM in Sodium Chloride 0.9% 100 ML IVPB SCH (08:34)
[2020-08-10] MEDS: Sevelamer Carbonate 800 MG TAB PO SCH ×3 (08:35→17:41)
[2020-08-10] MEDS: Primidone 50 MG TAB PO SCH ×2 (08:36→22:13)
[2020-08-10] MEDS: Heparin 5,000 UNITS/ML VIAL SC SCH ×3 (08:37→22:14)
[2020-08-10] MEDS: Calcium Acetate 667 MG CAP PO SCH ×3 (08:37→17:41)
[2020-08-10] MEDS: Lanthanum Carbonate 500 mg Tablet PO SCH ×3 (08:37→17:40)
[2020-08-10] MEDS: Cyanocobalamin (Vitamin B-12) 1,000 MCG TAB PO SCH (08:51)
--- NOTE | 2020-08-10 11:01 | PRG ---
DATE OF SERVICE: 08/10/2020 SUBJECTIVE: Deloris De La Vega is more appropriate today. She is more talkative. Her hemodynamics are stable. OBJECTIVE: LUNGS: Clear. HEART: Regular rhythm. ABDOMEN: Soft. EXTREMITIES: Unchanged. LABORATORY DATA: Sodium 139, potassium 5.3, chloride 97, bicarb 18, BUN 59, creatinine 11.6, glucose . Hemoglobin 14.7. IMPRESSION: 1. Altered mental status on presentation, ? early sepsis versus adrenal crisis. She appears to be improved today, although with the steroids obviously can be proven. Since she is steroid dependent, there is no reason to do an ACTH stimulation test. 2. Other problems include asthma, sleep apnea (compliant with CPAP therapy at home), peripheral neuropathy. 3. Obesity. 4. Deconditioning, essentially wheel-chair bound. 5. End-stage renal disease, on dialysis. She will be transferred most likely out of Critical Care Unit today. Her asthma does not appear to be a problem. She remains stable. She can be switched to p.o. steroids tomorrow. She is asking for a stool softener, but had a very large bowel movement this morning. Job ID: [id number]
--- NOTE | 2020-08-10 11:33 | PRG ---
DATE OF SERVICE: 08/10/2020 SUBJECTIVE: Ms. De La Vega is a 65-year-old female with ESRD and followed up by the Renal Service for management of her ESRD. The patient was initially admitted for mental status change. The feeling is that this could be related to previous dose of her LYrica and this has been discontinued. Mentation is much improved. She underwent hemodialysis yesterday without any difficulty. The patient voices no new complaints today. No chest pain or shortness of breath. OBJECTIVE: VITAL SIGNS: Blood pressure is noted at 108/61, heart rate 77, respiratory rate 20, and O2 saturation 100%. GENERAL: The patient is awake, supine, comfortable, obese, not in distress. SKIN: Adequate turgor. HEENT: She has pinkish conjunctivae. Anicteric sclerae. NECK: No neck mass. No carotid bruits. No JVD. CHEST: No deformities. LUNGS: Decreased breath sounds. HEART: Normal sinus rhythm. No murmurs. No gallops. No rubs. ABDOMEN: Globular, soft, and nontender. No masses. EXTREMITIES: Trace edema. MEDICATIONS: Of August 10, 2020, reviewed. LABORATORY DATA: Laboratories of August 09, 2020; white count 12.7, hemoglobin 14.7. Sodium 139, potassium 5.3, chloride 97, carbon dioxide 18, BUN 59, creatinine 11.67, AST 13, ALT 10, and albumin 3.2. ASSESSMENT AND PLAN: 1. End-stage renal disease, stable. We will continue current Thursday, , and Thursday hemodialysis regimen. No indication for any acute dialysis today. The patient is not overtly in volume overload. Potassium is acceptable. 2. Mental status change - much improved after discontinuation of Lyrica. We may need to restart Lyrica at a lower dose. Agree with current management. Job ID: [id number] [facility]
--- NOTE | 2020-08-10 12:26 | PRG ---
DATE OF SERVICE: I have examined Ms. De La Vega. I have discussed the case with Dr. Crystal Palmer, and I agree with her assessment and plan. Job ID: [id number]
[2020-08-10] MEDS: Clopidogrel Bisulfate 75 MG TAB PO SCH (22:14)
[2020-08-10] MEDS: Fluticasone Propionate Nasal Spray 16 gm Bottle NASAL SCH (22:14)
[2020-08-10] MEDS: Montelukast Sodium 10 mg Tablet PO SCH (22:14)
[2020-08-10] MEDS: Atorvastatin Calcium 40 MG TAB PO SCH (22:14)
[2020-08-10] MEDS: diphenhydrAMINE 25 MG CAP PO PRN (23:44)
[2020-08-11] MEDS: Hydrocortisone Sod Succ/PF 100 mg/2 ml Vial IVP SCH ×2 (03:55→12:56)
--- NOTE | 2020-08-11 05:50 | PDOC.FM ---
- Subjective Subjective: Pt awake and alert, getting nebulizer treatment with RT. States her mentation is much improved but she has feelings of guilt for how she treated the staff during her confusion. She says she lives with her nephew and he helps take care of her. She wears her cpap at night when at home but she has not been regularly wearing her O2 during the day. She says she has not had a ROQUE since being in hospital. Tolerating diet. No N/V, SOB. - Objective Vital Signs & Weight: Vital Signs (12 hours) Temp Pulse Resp BP Pulse Ox 08/11/20 04:00 97.7 F 70 22 H 135/82 93 L 08/10/20 20:00 98.6 F 96 Weight Admit Weight 122.924 kg Weight 123.3 kg Most Recent Monitor Data Heart Rate from ECG 81 NIBP 133/78 NIBP BP-Mean 96 Respiration from ECG 19 SpO2 96 I&O: 08/09/20 08/10/20 08/11/20 06:59 06:59 06:59 Intake Total 738 1173 1490 Output Total 70 280 0 Balance 750 567 0330 Result Diagrams: 08/11/20 06:11 08/11/20 06:11 Phys Exam - Physical Examination Constitutional: NAD Neck: supple, full ROM Respiratory: no wheezing, clear to auscultation bilateral Cardiovascular: RRR, no significant murmur Gastrointestinal: soft, non-tender Musculoskeletal: no edema Neurological: non-focal, moves all 4 limbs Psychiatric: normal affect, A&O x 3 Dx/Plan - Plan Plan: Patient is a 65F with PMHx of ESRD on HD (//Sat with Dr. Dempsey), HTN, GERD, Asthma, vitamin D deficiency, neuropathy, and sleep apnea (uses CPAP at night) admitted for: #Metabolic encephalopathy likely 2/2 acute hypercapneic respiratory failure #Obesity Hypoventilation Syndrome #RICHAR -patient transferred to ED from HD for AMS, patient is A&O x3/4 at baseline -has had worsening repetitive speech and worsening tremors over the last week; patient has not been wearing her home O2 for the past month but has been using her night-time CPAP -currently no tremor in last 48 hours -BUN 38, has been similar in the past and patient has not missed any of her [facility] HD appts -ABG in ED: pH 7.25, pCO2 66.2, pO2 104.8, 98.4%; patient placed on bipap for hypercapnia -repeat ABG 2 hours later in ED pH 7.25, pCO2 67.2, pO2 86.5, 96.2%, patient re- evaluated and answered questions appropriately without somnolence -continue BIPAP/CPAP for respiratory support at night, transition to N/C during the daytime as tolerated -COVID/flu negative -CXR demonstrates cardiomegaly, prominence of the pulmonary vasculature, and lower lung haziness suggestive of possible early pna -ABx: treated with rocephin and vanc, Dc'd on 08/11 due to no growth on BCx and no clinical signs of infection -procal 0.46 -Ammonia 50 -serum drug screen negative, unable to perform UDS -will d/c topamax for now as this can be associated with increased drowsiness and tremors -will restart pregabalin today at lower dose and monitor for mental status changes -consult Pulmonology, Dr. Parmar & Dr. Mcdonnell: started Hydrocortisone on 08/09, likely to change to po today #Worsening resting tremors -worsening over the last week, none apparent on exam this morning -patient of Dr. Sierra, has next appointment in August -CT/MRI of brain within the past few months, pt reports results were normal -on primidone at home -can consider consulting neurology if tremors worsening #Elevated troponin -trop 0.051 > 0.058 > 0.049 -EKG demonstrates no ST changes, patient denies chest pain #ESRD on HD -patient has HD //thu, had 3hrs of HD 08/07 before being transferred to the ED -Consult Machine Helper, Dr. Dempsey--appreciate recs, will arrange for HD while inpatient -verified Fosrenol dosing is [address] Dempsey -continue other HD meds #Hx of HTN -patient has hx of being borderline hypotensive in clinic -takes midodrine on HD days, will continue while in hospital -no HTN meds at this time #Neuropathy -restart lyrica at lower dose today and monitor mental status #Asthma -continue home medication regimen Diet: Renal High protein DVT ppx: heparin CODE: Full PCP: Ana Laura Dispo: Stable, admitted to medical. Pulmonology & Nephrology consulted, appreciate recs. Addendum - Attending - Attending Attestation Date/Time: 08/11/20 7702 I personally evaluated the patient and discussed the management with Dr. Gilliam. I agree with the History, Examination, Assessment and Plan documented above with any addition or exceptions noted below. Pt is improving. Changing nebs to while awake as she refuses them at night. Reintroducing lyrica but at half the dose to monitor for side effects.
[2020-08-11 07:07] LABS: #Monocytes 0.5 thou/uL (0.11-0.59); #Neutrophils 7.7 thou/uL (1.40-6.50); %Basophils 0.4 % (0.0-1.0); %Eosinophils 0.1 % (0.0-10.0); %Lymphocytes 10.8 % (21.0-51.0); %Monocytes 5.7 % (0.0-10.0); Hemoglobin 14.5 g/dL (12.0-16.0); Mean Corpuscular HGB CONC 32.1 g/dL (32.0-36.0); Mean Corpuscular Hemoglobin 32.7 pg (27.0-31.0); Mean Platelet Volume 9.6 fL (7.4-10.4); Platelet Count 310 thou/uL (130-400); Red Blood Cell (RBC) Count 4.43 mill/uL (4.20-5.40); White Blood Cell (WBC) Count 9.2 thou/uL (4.8-10.8)
[2020-08-11] MEDS: Mometasone 200 MCG/Formoterol 5 MCG 120 PUFF INHALER INH SCH ×2 (07:11→19:17)
[2020-08-11 07:22] LABS: Anion Gap 22 mmol/L (10-20); BUN (Urea Nitrogen) 49 mg/dL (9.8-20.1); Calc. Creatinine Clearance 10 mL/min (70-130); Calcium 8.6 mg/dL (7.8-10.44); Carbon Dioxide 24 mmol/L (23-31); Chloride 96 mmol/L (98-107); Glucose 104 mg/dL (80-115); Sodium 137 mmol/L (136-145)
[2020-08-11] MEDS: cefTRIAXone\\ROCEPHIN 1 GM in Sodium Chloride 0.9% 100 ML IVPB SCH (08:41)
[2020-08-11] MEDS: Sevelamer Carbonate 800 MG TAB PO SCH ×3 (08:41→17:32)
[2020-08-11] MEDS: Cyanocobalamin (Vitamin B-12) 1,000 MCG TAB PO SCH (08:42)
[2020-08-11] MEDS: Primidone 50 MG TAB PO SCH ×2 (08:42→21:35)
[2020-08-11] MEDS: Lanthanum Carbonate 500 mg Tablet PO SCH ×3 (08:42→17:31)
[2020-08-11] MEDS: Calcium Acetate 667 MG CAP PO SCH ×3 (08:42→17:30)
[2020-08-11] MEDS: Heparin 5,000 UNITS/ML VIAL SC SCH ×3 (08:42→21:43)
[2020-08-11] MEDS ORDERED: Pregabalin 75 MG CAP PO SCH (09:00)
[2020-08-11] MEDS: Pregabalin 50 MG CAP PO SCH (10:45)
[2020-08-11] MEDS ORDERED: Heparin 10,000 UNITS/ 10 ML VIAL ONE (10:49)
[2020-08-11 11:12] LABS: Vancomycin, Random 17.3 ug/mL (See Comment)
--- NOTE | 2020-08-11 11:32 | PRG ---
DATE OF SERVICE: 08/11/2020 SUBJECTIVE: Ms. De La Vega is a 65-year-old female with ESRD on maintenance hemodialysis, was initially admitted secondary to mental status change. Adjustment of her Lyrica has been done, which improved her mentation. She voices no complaints of chest pain or shortness of breath. I have scheduled her for regular dialysis today. OBJECTIVE: VITAL SIGNS: Blood pressure 131/84, heart rate 67, respiratory rate 16, temperature 98.4, and O2 saturation 95%. GENERAL: The patient is awake, supine, comfortable, obese, not in distress. SKIN: Adequate turgor. HEENT: She has a pinkish conjunctivae. Anicteric sclerae. NECK: No neck mass. No carotid bruits. No JVD. CHEST: No deformities. LUNGS: Clear breath sounds. No wheezing. No crackles. HEART: Normal sinus rhythm. No murmur. No gallops. No rubs. ABDOMEN: Globular, soft, and nontender. No masses. EXTREMITIES: No edema. No deformities. MEDICATIONS: Medications of August 11, 2020, was reviewed. LABORATORY DATA: Laboratories of August 11, 2020, white count 9.2 and hemoglobin 14.5. Sodium 137, potassium 5, chloride 96, carbon dioxide 24, BUN 49, creatinine 10.22, glucose 104, and calcium 8.6. ASSESSMENT AND PLAN: 1. End-stage renal disease, stable. We will continue current Thursday, , and Thursday hemodialysis regimen. The patient has been scheduled for 3-hour hemodialysis with fluid removal. 2. Chronic anemia, stable. No indication for any Epogen. 3. Mental status change, resolved with adjustment of her Lyrica. Job ID: [id number]
--- NOTE | 2020-08-11 15:54 | EKG ---
Test Reason : Blood Pressure : / mmHG Vent. Rate : 097 BPM Atrial Rate : 097 BPM P-R Int : 168 ms QRS Dur : 088 ms QT Int : 364 ms P-R-T Axes : 035 -22 081 degrees QTc Int : 462 ms Normal sinus rhythm Low voltage QRS Borderline ECG Confirmed by ISELA MOSS ([id number]), restaurant expeditor MARIO ALFREDO ([id number]) on 08/11/2020 3:54:17 PM Referred By: Confirmed By:ISELA MOSS
--- NOTE | 2020-08-11 16:28 | PRG ---
DATE OF SERVICE: 08/11/2020 SUBJECTIVE: The patient is doing very well. She is very talkative. No complaints. OBJECTIVE: VITAL SIGNS: Temperature 98.4, pulse 67, respirations 18. O2 saturation 95% on 2 L. HEENT: Unremarkable. NECK: No JVD. LUNGS: Clear. CARDIAC: S1 and S2. Regular. ABDOMEN: Soft. EXTREMITIES: No edema. LABORATORY DATA: White blood cell count 9.2, hematocrit 45, platelet count 310. Sodium 137, potassium 5, BUN 49, creatinine 10.2, and glucose 104. ASSESSMENT: 1. Status post acute respiratory failure related to encephalopathy, probably from medications. 2. Question of adrenal crisis. 3. Obstructive sleep apnea/Obesity hypoventilation syndrome. 4. End-stage renal disease, requiring dialysis. PLAN: She is having some medication adjustments. Her respiratory status is stable and I think she should be able to go home by Thursday. Dr. Mcdonnell will be back Thursday. Please call if other problems develop over the weekend. Job ID: [id number]
[2020-08-11] MEDS ORDERED: Sevelamer Carbonate 800 MG TAB ONE (17:25)
[2020-08-11] MEDS: Montelukast Sodium 10 mg Tablet PO SCH (21:43)
[2020-08-11] MEDS: Atorvastatin Calcium 40 MG TAB PO SCH (21:44)
[2020-08-11] MEDS: Clopidogrel Bisulfate 75 MG TAB PO SCH (21:44)
[2020-08-11] MEDS: diphenhydrAMINE 25 MG CAP PO PRN (21:52)
[2020-08-11] MEDS ORDERED: Acetaminophen 325 MG TAB PO PRN (21:55)
[2020-08-11] MEDS: Fluticasone Propionate Nasal Spray 16 gm Bottle NASAL SCH (22:00)
[2020-08-11] MEDS ORDERED: Midodrine HCl 5 MG TAB ONE (22:42)
[2020-08-11] MEDS: Midodrine HCl 5 MG TAB PO SCH (22:59)
--- NOTE | 2020-08-12 05:53 | PDOC.FM ---
- Subjective Subjective: Pt awake and alert on exam this morning. Was started on a lower dose of lyrica last night with no side effects. C/o anxiety at night. She says this is something new for her. She was able to sleep well last night after being given benadryl. Tolerating diet. Working with PT. PT recommends rehab. In discussing this with patient, she says she has done rehab in the past and she felt it helped. But admits that when she went home she was not motivated and decompensated. Currently at home she uses a wheelchair to get around. She says due to her weight gain and weakness she is having to rely on her nephew more than she would like. - Objective Vital Signs & Weight: Vital Signs (12 hours) Temp Pulse Resp BP Pulse Ox 08/12/20 04:46 97 08/12/20 00:00 98.1 F 83 18 145/85 H 94 L 08/11/20 21:00 98 F 75 18 149/87 H 94 L 08/11/20 20:00 94 L 08/11/20 19:16 68 16 95 Weight Admit Weight 122.924 kg Weight 123.3 kg Most Recent Monitor Data Heart Rate from ECG 81 NIBP 133/78 NIBP BP-Mean 96 Respiration from ECG 19 SpO2 96 I&O: 08/10/20 08/11/20 08/12/20 06:59 06:59 06:59 Intake Total 1173 1490 Output Total 280 0 Balance 893 1490 Result Diagrams: 08/11/20 06:11 08/11/20 06:11 Phys Exam - Physical Examination Constitutional: NAD obese Neck: supple Respiratory: no wheezing, clear to auscultation bilateral Cardiovascular: RRR, no significant murmur Gastrointestinal: soft, non-tender Musculoskeletal: no edema Neurological: non-focal, moves all 4 limbs Psychiatric: normal affect, A&O x 3 Dx/Plan - Plan Plan: Patient is a 65F with PMHx of ESRD on HD (//Sat with Dr. Dempsey), HTN, GERD, Asthma, vitamin D deficiency, neuropathy, and sleep apnea (uses CPAP at night) admitted for: #Metabolic encephalopathy likely 2/2 acute hypercapneic respiratory failure #Obesity Hypoventilation Syndrome #RICHAR -patient transferred to ED from HD for AMS, patient is A&O x3/4 at baseline -has had worsening repetitive speech and worsening tremors over the last week; patient has not been wearing her home O2 for the past month but has been using her night-time CPAP -currently no tremor in last 48 hours -BUN 38, has been similar in the past and patient has not missed any of her [facility] HD appts -ABG in ED: pH 7.25, pCO2 66.2, pO2 104.8, 98.4%; patient placed on bipap for hypercapnia -repeat ABG 2 hours later in ED pH 7.25, pCO2 67.2, pO2 86.5, 96.2%, patient re- evaluated and answered questions appropriately without somnolence -continue BIPAP/CPAP for respiratory support at night, transition to N/C during the daytime as tolerated -COVID/flu negative -CXR demonstrates cardiomegaly, prominence of the pulmonary vasculature, and lower lung haziness suggestive of possible early pna -ABx: treated with rocephin and vanc, Dc'd on 08/11 due to no growth on BCx and no clinical signs of infection -procal 0.46 -Ammonia 50 -serum drug screen negative, unable to perform UDS -will d/c topamax for now as this can be associated with increased drowsiness and tremors -started lyrica 100mg qd, which is lower than her previous dose of 100mg bid. Tolerated well -consult Pulmonology, Dr. Parmar & Dr. Mcdonnell: started Hydrocortisone on 08/09, likely to discharge on Thursday #Anxiety -will start hydroxyzine qhs -discussed outpatient f/u at our clinic for anxiety/depression meds. She thinks she may have been on something in the past and would be open trying a new med #Physical Deconditioning -due to obesity and lack of activity at home- per patient -PT/OT- recommend rehab -will discuss with patient #Worsening resting tremors -worsening over the last week, none apparent on exam this morning -patient of Dr. Sierra, has next appointment in August -CT/MRI of brain within the past few months, pt reports results were normal -on primidone at home -can consider consulting neurology if tremors worsening #Elevated troponin -trop 0.051 > 0.058 > 0.049 -EKG demonstrates no ST changes, patient denies chest pain #ESRD on HD -patient has HD tues/th/sat, had 3hrs of HD 08/07 before being transferred to the ED -Consult Aquatics Group Fitness Instructor, Dr. Dempsey--appreciate recs, will arrange for HD while inpatient -verified Fosrenol dosing is [address] Dempsey -continue other HD meds #Hx of HTN -patient has hx of being borderline hypotensive in clinic -takes midodrine on HD days, will continue while in hospital -no HTN meds at this time #Neuropathy -restart lyrica at lower dose today and monitor mental status #Asthma -continue home medication regimen Diet: Renal High protein DVT ppx: heparin CODE: Full PCP: Ana Laura Dispo: Stable, admitted to medical. Pulmonology & Nephrology consulted, appreciate recs. Likely to discharge soon. Addendum - Attending - Attending Attestation Date/Time: 08/12/20 1221 I personally evaluated the patient and discussed the management with Dr. Gilliam. I agree with the History, Examination, Assessment and Plan documented above with any addition or exceptions noted below. Pt is very anxious at night. Will add hydroxyzine at night Continue supportive care.
[2020-08-12] MEDS: Mometasone 200 MCG/Formoterol 5 MCG 120 PUFF INHALER INH SCH ×2 (07:02→19:09)
[2020-08-12] MEDS: Sevelamer Carbonate 800 MG TAB PO SCH ×3 (08:29→17:10)
[2020-08-12] MEDS: Calcium Acetate 667 MG CAP PO SCH ×3 (08:29→17:10)
[2020-08-12] MEDS: Cyanocobalamin (Vitamin B-12) 1,000 MCG TAB PO SCH (08:30)
[2020-08-12] MEDS: Pregabalin 50 MG CAP PO SCH (08:30)
[2020-08-12] MEDS: predniSONE 20 MG TAB PO SCH (08:30)
[2020-08-12] MEDS: Heparin 5,000 UNITS/ML VIAL SC SCH ×3 (08:31→21:27)
[2020-08-12] MEDS: Primidone 50 MG TAB PO SCH ×2 (08:31→21:32)
[2020-08-12] MEDS: Lanthanum Carbonate 500 mg Tablet PO SCH ×3 (08:32→17:09)
[2020-08-12] MEDS: Clopidogrel Bisulfate 75 MG TAB PO SCH (21:26)
[2020-08-12] MEDS: Atorvastatin Calcium 40 MG TAB PO SCH (21:26)
[2020-08-12] MEDS: Fluticasone Propionate Nasal Spray 16 gm Bottle NASAL SCH (21:27)
[2020-08-12] MEDS: hydrOXYzine 25 MG TAB PO SCH (21:28)
[2020-08-12] MEDS: Montelukast Sodium 10 mg Tablet PO SCH (21:29)
[2020-08-13] MEDS ORDERED: Calcium Carbonate 500 MG ChewTAB PO PRN (01:12)
[2020-08-13] MEDS: Calcium Acetate 667 MG CAP PO SCH ×3 (07:50→17:40)
[2020-08-13] MEDS: Pregabalin 50 MG CAP PO SCH (07:51)
[2020-08-13] MEDS: Cyanocobalamin (Vitamin B-12) 1,000 MCG TAB PO SCH (07:52)
[2020-08-13] MEDS: Heparin 5,000 UNITS/ML VIAL SC SCH ×3 (07:54→20:21)
[2020-08-13] MEDS: Sevelamer Carbonate 800 MG TAB PO SCH ×3 (07:54→17:40)
[2020-08-13] MEDS: predniSONE 20 MG TAB PO SCH (07:55)
[2020-08-13] MEDS: Mometasone 200 MCG/Formoterol 5 MCG 120 PUFF INHALER INH SCH ×2 (08:59→18:40)
[2020-08-13] MEDS: Primidone 50 MG TAB PO SCH ×2 (09:12→20:21)
[2020-08-13] MEDS: Lanthanum Carbonate 500 mg Tablet PO SCH ×3 (09:14→17:40)
--- NOTE | 2020-08-13 09:18 | PRG ---
DATE OF SERVICE: 08/13/2020 SUBJECTIVE: Ms. De La Vega is a 65-year-old female, followed up by the [facility] for her ESRD. She underwent hemodialysis last Thursday and tolerated said treatment. The patient voices no new complaints. We are awaiting possible rehab or senior living facility placement for this patient. OBJECTIVE: VITAL SIGNS: Blood pressure is 111/71, heart rate 74, respiratory rate 24, O2 saturation 93%, temperature 97.7. GENERAL: The patient is awake, alert, comfortable, not in overt distress. SKIN: Adequate turgor. HEENT: Pinkish conjunctivae. Anicteric sclerae. NECK: No neck mass. No carotid bruits. No JVD. CHEST: No deformities. LUNGS: Clear breath sounds. HEART: Normal sinus rhythm. No murmur. No gallops. No rubs. ABDOMEN: Globular, soft, nontender. No masses. EXTREMITIES: No edema. No deformities. MEDICATIONS: Medications of August 13, 2020, reviewed. LABORATORY DATA: Laboratory of August 11, 2020; white count 9.2, hemoglobin 14.5. Sodium 137, potassium 5, chloride 96, carbon dioxide 24, BUN 49, creatinine 10.22, calcium 8.6. ASSESSMENT AND PLAN: 1. End-stage renal disease, stable. No indication for any acute dialysis today. I have scheduled her back for her regular dialysis Thursday, , Thursday. Continue renal diet. 2. Mentation changes-resolved with adjustment of her Lyrica. We are currently awaiting rehab placement for this patient. We will recheck CBC and basic met in a.m. Job ID: [id number]
--- NOTE | 2020-08-13 09:21 | PDOC.FM ---
- Subjective Subjective: Patient overall doing well this AM, patient is agreeable to Rehab placement. Reported GERD overnight treated with TUMS. Denies CP, SOB, N/V this AM. - Objective Vital Signs & Weight: Vital Signs (12 hours) Temp Pulse Resp BP Pulse Ox 08/13/20 08:58 70 16 93 L 08/13/20 07:28 97.7 F 74 24 H 111/71 93 L 08/13/20 04:42 62 124/77 97 08/13/20 01:02 74 94 L 08/13/20 00:00 93 L Weight Admit Weight 122.924 kg Weight 123.3 kg Most Recent Monitor Data Heart Rate from ECG 81 NIBP 133/78 NIBP BP-Mean 96 Respiration from ECG 19 SpO2 96 I&O: 08/12/20 08/13/20 08/14/20 06:59 06:59 06:59 Intake Total 240 Balance 240 Result Diagrams: 08/11/20 06:11 08/11/20 06:11 Phys Exam - Physical Examination Constitutional: NAD Respiratory: no wheezing, no rales, no rhonchi Cardiovascular: RRR, no significant murmur, no rub Gastrointestinal: soft, non-tender, no distention, positive bowel sounds Dx/Plan - Plan Plan: Patient is a 65F with PMHx of ESRD on HD (//Sat with Dr. Dempsey), HTN, GERD, Asthma, vitamin D deficiency, neuropathy, and sleep apnea (uses CPAP at night) admitted for: Metabolic encephalopathy likely 2/2 acute hypercapneic respiratory failure Obesity Hypoventilation Syndrome RICHAR -had worsening repetitive speech and worsening tremors over the last week; patient has not been wearing her home O2 for the past month but has been using her night-time CPAP -continue CPAP for respiratory support at night, transition to N/C during the daytime as tolerated -COVID/flu negative -ABx: treated with rocephin and vanc, Dc'd on 08/11 due to no growth on BCx and no clinical signs of infection -serum drug screen negative, unable to perform UDS -will d/c topamax for now as this can be associated with increased drowsiness and tremors -started lyrica 100mg qd, which is lower than her previous dose of 100mg bid. Tolerated well -consult Pulmonology, Dr. Parmar & Dr. Mcdonnell: on 20 mg Prednisone QD Anxiety -will start hydroxyzine qhs -discussed outpatient f/u at our clinic for anxiety/depression meds Physical Deconditioning -due to obesity and lack of activity at home- per patient -PT/OT- recommend rehab Worsening resting tremors -worsening over the last week, none apparent on exam this morning -patient of Dr. Sierra, has next appointment in August -CT/MRI of brain within the past few months, pt reports results were normal -on primidone at home -can consider consulting neurology if tremors worsening Elevated troponin -trop 0.051 > 0.058 > 0.049 -EKG demonstrates no ST changes, patient denies chest pain ESRD on HD -patient has HD /th/sat, had 3hrs of HD 08/07 before being transferred to the ED -Consult Garment Manufacturing Supervisor, Dr. Dempsey--appreciate recs, will arrange for HD while inpatient -verified Fosrenol dosing is [address] Dempsey -continue other HD meds Hx of HTN -patient has hx of being borderline hypotensive in clinic -takes midodrine on HD days, will continue while in hospital -no HTN meds at this time Neuropathy -restart lyrica at lower dose today and monitor mental status Asthma -continue home medication regimen Diet: Renal High protein DVT ppx: heparin CODE: Full PCP: Ana Laura Dispo: Stable, admitted to medical. Pulmonology & Nephrology consulted, appreciate recs. Likely to discharge soon. Will need to discuss steroid end date with pulmonology. Addendum - Attending - Attending Attestation Date/Time: 08/13/20 5122 I personally evaluated the patient and discussed the management with Dr. Arevalo. I agree with the History, Examination, Assessment and Plan documented above with any addition or exceptions noted below. Working on placement. Pulm recommends current dose of steroids until completes Rehab then decrease to 10 mg daily.
--- NOTE | 2020-08-13 13:52 | PRG ---
DATE OF SERVICE: 08/13/2020 SUBJECTIVE: Deloris De La Vega is being evaluated to move over to rehab. She is in no distress. Her mental status is back to its baseline. OBJECTIVE: VITAL SIGNS: She is afebrile, heart rates in the 70s, respiratory rates in the teens, oximetry is 93% on 2 L. LUNGS: Unchanged. HEART: Unchanged. ABDOMEN: Unchanged. LABORATORY DATA: Blood cultures never grew out any pathogens. IMPRESSION: 1. Status post presentation with encephalopathy that improved gradually. I would still wonder if there was some component of adrenal crisis. 2. History of asthma. 3. Obesity. 4. Deconditioning. 5. End-stage renal disease, on dialysis. Other possible causes of her mentation changes were medications. We will continue to follow while she is in the hospital. I do believe she is stable to go to rehab at this time. Job ID: [id number]
[2020-08-13] MEDS: Acetaminophen 325 MG TAB PO PRN (16:05)
[2020-08-13] MEDS: hydrOXYzine 25 MG TAB PO SCH (20:19)
[2020-08-13] MEDS: Atorvastatin Calcium 40 MG TAB PO SCH (20:20)
[2020-08-13] MEDS: Montelukast Sodium 10 mg Tablet PO SCH (20:20)
[2020-08-13] MEDS: Fluticasone Propionate Nasal Spray 16 gm Bottle NASAL SCH (20:21)
[2020-08-13] MEDS: Clopidogrel Bisulfate 75 MG TAB PO SCH (20:21)
[2020-08-13] MEDS: Midodrine HCl 5 MG TAB PO SCH (20:21)
[2020-08-13] MEDS: Melatonin 3 MG TAB PO PRN (22:59)
--- NOTE | 2020-08-14 06:16 | PDOC.FM ---
- Subjective Subjective: Patient doing well this AM, No acute concerns, no acute events overnight. - Objective MAR Reviewed: Yes Vital Signs & Weight: Vital Signs (12 hours) Temp Pulse Resp BP BP Pulse Ox 08/13/20 20:14 98.8 F 84 18 130/79 92 L 08/13/20 18:41 78 20 08/13/20 18:40 78 20 08/13/20 18:39 98.1 F 79 19 132/71 96 Weight Admit Weight 122.924 kg Weight 123.3 kg Most Recent Monitor Data Heart Rate from ECG 81 NIBP 133/78 NIBP BP-Mean 96 Respiration from ECG 19 SpO2 96 I&O: 08/12/20 08/13/20 08/14/20 06:59 06:59 06:59 Intake Total 240 60 Balance 240 60 Result Diagrams: 08/14/20 06:20 08/14/20 06:20 Phys Exam - Physical Examination Constitutional: NAD Respiratory: no wheezing, no rales, no rhonchi, clear to auscultation bilateral Cardiovascular: RRR, no significant murmur, no rub Gastrointestinal: soft, non-tender, no distention, positive bowel sounds Dx/Plan - Plan Plan: Patient is a 65F with PMHx of ESRD on HD (//Sat with Dr. Dempsey), HTN, GERD, Asthma, vitamin D deficiency, neuropathy, and sleep apnea (uses CPAP at night) admitted for: Metabolic encephalopathy likely 2/2 acute hypercapneic respiratory failure Obesity Hypoventilation Syndrome RICHAR -had worsening repetitive speech and worsening tremors over the last week; patient has not been wearing her home O2 for the past month but has been using her night-time CPAP -continue CPAP for respiratory support at night, transition to N/C during the da ytime as tolerated -COVID/flu negative -ABx: treated with rocephin and vanc, Dc'd on 08/11 due to no growth on BCx and no clinical signs of infection -serum drug screen negative, unable to perform UDS -will d/c topamax for now as this can be associated with increased drowsiness and tremors -started lyrica 100mg qd, which is lower than her previous dose of 100mg bid. Tolerated well -consult Pulmonology, Dr. Parmar & Dr. Mcdonnell: on 20 mg Prednisone QD- continue until 08/15, then decrease dose to 10 mg QD while hopefully at rehab facility Anxiety -will start hydroxyzine qhs -discussed outpatient f/u at our clinic for anxiety/depression meds Physical Deconditioning -due to obesity and lack of activity at home- per patient -PT/OT- recommend rehab, awaiting placement Worsening resting tremors -worsening over the last week, none apparent on exam this morning -patient of Dr. Sierra, has next appointment in August -CT/MRI of brain within the past few months, pt reports results were normal -on primidone at home -can consider consulting neurology if tremors worsening Elevated troponin -trop 0.051 > 0.058 > 0.049 -EKG demonstrates no ST changes, patient denies chest pain ESRD on HD -patient has HD //sat, had 3hrs of HD 08/07 before being transferred to the ED -Consult Ladle Cleaner, Dr. Dempsey--appreciate recs, will arrange for HD while inpatient -verified Fosrenol dosing is [address] Dempsey -continue other HD meds Hx of HTN -patient has hx of being borderline hypotensive in clinic -takes midodrine on HD days, will continue while in hospital -no HTN meds at this time Neuropathy -restart lyrica at lower dose today and monitor mental status Asthma -continue home medication regimen Diet: Renal High protein DVT ppx: heparin CODE: Full PCP: Ana Laura Dispo: Stable, admitted to medical. Pulmonology & Nephrology consulted, appreciate recs. Awaiting placement hopefully DC to [facility] today. Addendum - Attending - Attending Attestation Date/Time: 08/14/20 1850 I personally evaluated the patient and discussed the management with Dr. Arevalo. I agree with the History, Examination, Assessment and Plan documented above with any addition or exceptions noted below.
[2020-08-14 06:40] LABS: #Eosinphils 0.2 thou/uL (0.0-0.7); #Lymphocytes 2.2 thou/uL (1.20-3.40); #Monocytes 1.3 thou/uL (0.11-0.59); %Basophils 0.3 % (0.0-1.0); %Eosinophils 2.2 % (0.0-10.0); %Lymphocytes 20.5 % (21.0-51.0); %Monocytes 12.3 % (0.0-10.0); %Neutrophils 64.8 % (42.0-75.0); Hemoglobin 14.2 g/dL (12.0-16.0); Mean Corpuscular HGB CONC 32.1 g/dL (32.0-36.0); Mean Corpuscular Hemoglobin 33.3 pg (27.0-31.0); Mean Platelet Volume 9.9 fL (7.4-10.4); Platelet Count 289 thou/uL (130-400); RBC Distribution Width 13.9 % (11.5-14.5); Red Blood Cell (RBC) Count 4.27 mill/uL (4.20-5.40); White Blood Cell (WBC) Count 10.8 thou/uL (4.8-10.8)
[2020-08-14 07:03] LABS: Anion Gap 20 mmol/L (10-20); BUN (Urea Nitrogen) 61 mg/dL (9.8-20.1); Calc. Creatinine Clearance 9 mL/min (70-130); Calcium 8.5 mg/dL (7.8-10.44); Carbon Dioxide 26 mmol/L (23-31); Chloride 94 mmol/L (98-107); Glucose 83 mg/dL (80-115); Potassium 3.9 mmol/L (3.5-5.1); Sodium 136 mmol/L (136-145)
[2020-08-14] MEDS: Mometasone 200 MCG/Formoterol 5 MCG 120 PUFF INHALER INH SCH ×2 (07:58→18:14)
[2020-08-14] MEDS: Cyanocobalamin (Vitamin B-12) 1,000 MCG TAB PO SCH (08:04)
[2020-08-14] MEDS: predniSONE 20 MG TAB PO SCH (08:04)
[2020-08-14] MEDS: Pregabalin 50 MG CAP PO SCH (08:04)
[2020-08-14] MEDS: Sevelamer Carbonate 800 MG TAB PO SCH ×3 (08:05→18:42)
[2020-08-14] MEDS: Calcium Acetate 667 MG CAP PO SCH ×3 (08:05→18:41)
[2020-08-14] MEDS: Heparin 5,000 UNITS/ML VIAL SC SCH ×3 (08:05→20:47)
--- NOTE | 2020-08-14 08:43 | PRG ---
DATE OF SERVICE: 08/14/2020 SUBJECTIVE: Ms. De La Vega is a 65-year-old female with ESRD and admitted for mental status change. Mentation is much improved. No new complaints today. No chest pain or shortness of breath. Awaiting assisted facility/rehab placement. The patient is scheduled for dialysis today. No complaints of chest pain or shortness of breath. OBJECTIVE: VITAL SIGNS: Blood pressure 109/69, heart rate 82, respiratory rate 22, temperature 97.8, O2 saturation 99% on 2 L. GENERAL: Awake, alert, obese, comfortable, not in distress. SKIN: Adequate turgor. HEENT: Pinkish conjunctivae. Anicteric sclerae. NECK: No neck mass. No carotid bruits. No JVD. CHEST: No deformities. LUNGS: Clear breath sounds. HEART: Normal sinus rhythm. No murmurs, gallops, or rubs. ABDOMEN: Globular, soft, nontender. No masses. EXTREMITIES: No edema. No deformities. MEDICATIONS: Medications of August 14, 2020, reviewed. LABORATORY DATA: Laboratories of August 14, 2020; white count 10.8, hemoglobin 14.2. Sodium 136, potassium 3.9, chloride 94, carbon dioxide 26, BUN 61, creatinine 11.43, calcium 8.5. ASSESSMENT AND PLAN: 1. End-stage renal disease, stable. We will continue current hemodialysis regimen of 3 hours. No changes will be made with the current Thursday, , and Thursday dialysis regimen. 2. Decreased mentation - much improved with adjustment of her medications. 3. Awaiting rehab placement. Job ID: [id number]
[2020-08-14] MEDS: Primidone 50 MG TAB PO SCH ×2 (08:56→20:46)
[2020-08-14] MEDS: Lanthanum Carbonate 500 mg Tablet PO SCH ×3 (08:57→18:42)
[2020-08-14] MEDS ORDERED: Heparin 10,000 UNITS/ 10 ML VIAL ONE (10:55)
[2020-08-14] MEDS: Montelukast Sodium 10 mg Tablet PO SCH (20:45)
[2020-08-14] MEDS: hydrOXYzine 25 MG TAB PO SCH (20:45)
[2020-08-14] MEDS: Clopidogrel Bisulfate 75 MG TAB PO SCH (20:46)
[2020-08-14] MEDS: Fluticasone Propionate Nasal Spray 16 gm Bottle NASAL SCH (20:47)
[2020-08-14] MEDS: Atorvastatin Calcium 40 MG TAB PO SCH (20:47)
[2020-08-15] MEDS: Melatonin 3 MG TAB PO PRN ×2 (00:59→21:32)
--- NOTE | 2020-08-15 06:22 | PDOC.FM ---
- Subjective Subjective: No acute events overnight, patient feeling well overall. Has a small knot on RLQ of abdomen, mildly painful, no discharge, erythema, warmth. Near where she is getting SC shots. - Objective MAR Reviewed: Yes Vital Signs & Weight: Vital Signs (12 hours) Temp Pulse Resp BP Pulse Ox 08/14/20 20:50 98.0 F 78 20 100/65 96 Weight Admit Weight 122.924 kg Weight 123.3 kg Most Recent Monitor Data Heart Rate from ECG 81 NIBP 133/78 NIBP BP-Mean 96 Respiration from ECG 19 SpO2 96 I&O: 08/13/20 08/14/20 08/15/20 06:59 06:59 06:59 Intake Total 240 60 185 Balance 240 60 185 Result Diagrams: 08/14/20 06:20 08/14/20 06:20 Phys Exam - Physical Examination Constitutional: NAD Respiratory: no wheezing, no rales, no rhonchi Cardiovascular: RRR, no significant murmur, no rub Gastrointestinal: soft, non-tender, no distention 1-2 cm nodule in RLQ with purpuric area surrounding, no warmth/drainage Dx/Plan - Plan Plan: Patient is a 65F with PMHx of ESRD on HD (//Sat with Dr. Dempsey), HTN, GERD, Asthma, vitamin D deficiency, neuropathy, and sleep apnea (uses CPAP at night) admitted for: Metabolic encephalopathy likely 2/2 acute hypercapneic respiratory failure Obesity Hypoventilation Syndrome RICHAR -had worsening repetitive speech and worsening tremors; patient had not been wearing home O2 but had been using her night-time CPAP -continue CPAP for respiratory support at night, transition to N/C during the daytime as tolerated -COVID/flu negative -ABx: treated with rocephin and vanc, Dc'd on 08/11 due to no growth on BCx and no clinical signs of infection -serum drug screen negative, unable to perform UDS -will d/c topamax for now as this can be associated with increased drowsiness and tremors -started lyrica 100mg qd, which is lower than her previous dose of 100mg bid. Tolerated well -consult Pulmonology, Dr. Parmar & Dr. Mcdonnell: on 20 mg Prednisone QD- continue until 08/15, then decrease dose to 10 mg QD while hopefully at rehab facility Anxiety -will start hydroxyzine qhs -discussed outpatient f/u at our clinic for anxiety/depression meds Physical Deconditioning -due to obesity and lack of activity at home- per patient -PT/OT- recommend rehab, awaiting placement Worsening resting tremors -worsening over the last week, none apparent on exam this morning -patient of Dr. Sierra, has next appointment in August -CT/MRI of brain within the past few months, pt reports results were normal -on primidone at home -can consider consulting neurology if tremors worsening Elevated troponin -trop 0.051 > 0.058 > 0.049 -EKG demonstrates no ST changes, patient denies chest pain ESRD on HD -patient has HD /th/sat, had 3hrs of HD 08/07 before being transferred to the ED -Consult Butadiene Converter Utility Operator, Dr. Dempsey--appreciate recs, will arrange for HD while inpatient -verified Fosrenol dosing is [address] Dempsey -continue other HD meds Hx of HTN -patient has hx of being borderline hypotensive in clinic -takes midodrine on HD days, will continue while in hospital -no HTN meds at this time Neuropathy -restart lyrica at lower dose today and monitor mental status Asthma -continue home medication regimen Diet: Renal High protein DVT ppx: heparin CODE: Full PCP: Ana Laura Dispo: Stable, admitted to medical. Pulmonology & Nephrology consulted, appreciate recs. Awaiting placement hopefully DC to [facility] today. Addendum - Attending - Attending Attestation Date/Time: 08/15/20 1037 I personally evaluated the patient and discussed the management with Dr. Arevalo. I agree with the History, Examination, Assessment and Plan documented above with any addition or exceptions noted below.
[2020-08-15] MEDS: Mometasone 200 MCG/Formoterol 5 MCG 120 PUFF INHALER INH SCH ×2 (07:25→19:21)
[2020-08-15] MEDS: Cyanocobalamin (Vitamin B-12) 1,000 MCG TAB PO SCH (08:06)
[2020-08-15] MEDS: Sevelamer Carbonate 800 MG TAB PO SCH ×3 (08:06→17:36)
[2020-08-15] MEDS: Primidone 50 MG TAB PO SCH ×2 (08:06→21:31)
[2020-08-15] MEDS: Calcium Acetate 667 MG CAP PO SCH ×3 (08:07→17:36)
[2020-08-15] MEDS: Pregabalin 50 MG CAP PO SCH (08:07)
[2020-08-15] MEDS: Heparin 5,000 UNITS/ML VIAL SC SCH ×3 (08:07→21:32)
[2020-08-15] MEDS: predniSONE 20 MG TAB PO SCH (08:07)
[2020-08-15] MEDS: Lanthanum Carbonate 500 mg Tablet PO SCH ×3 (09:39→17:36)
[2020-08-15] MEDS: Midodrine HCl 5 MG TAB PO SCH (21:31)
[2020-08-15] MEDS: diphenhydrAMINE 25 MG CAP PO PRN (21:31)
[2020-08-15] MEDS: hydrOXYzine 25 MG TAB PO SCH (21:32)
[2020-08-15] MEDS: Clopidogrel Bisulfate 75 MG TAB PO SCH (21:32)
[2020-08-15] MEDS: Fluticasone Propionate Nasal Spray 16 gm Bottle NASAL SCH (21:32)
[2020-08-15] MEDS: Atorvastatin Calcium 40 MG TAB PO SCH (21:32)
[2020-08-15] MEDS: Montelukast Sodium 10 mg Tablet PO SCH (21:32)
[2020-08-15] MEDS: Nystatin Cream 30 GM TUBE TOP PRN (21:33)
--- NOTE | 2020-08-16 06:17 | PDOC.FM ---
- Subjective Subjective: Patient is feeling well this AM. No acute concerns, no acute events overnight. Denies CP, SOB, N/V. - Objective MAR Reviewed: Yes Vital Signs & Weight: Vital Signs (12 hours) Temp Pulse Resp BP Pulse Ox 08/15/20 20:11 98.2 F 68 18 95/58 L 92 L 08/15/20 19:21 16 Weight Admit Weight 106.14 kg Weight 123.3 kg Most Recent Monitor Data Heart Rate from ECG 81 NIBP 133/78 NIBP BP-Mean 96 Respiration from ECG 19 SpO2 96 I&O: 08/14/20 08/15/20 08/16/20 06:59 06:59 06:59 Intake Total 60 185 1400 Balance 60 185 1400 Result Diagrams: 08/14/20 06:20 08/14/20 06:20 Phys Exam - Physical Examination Constitutional: NAD Respiratory: no wheezing, no rales, no rhonchi, clear to auscultation bilateral Cardiovascular: RRR, no significant murmur, no rub Gastrointestinal: soft, non-tender, no distention, positive bowel sounds Dx/Plan - Plan Plan: Patient is a 65F with PMHx of ESRD on HD (//Sat with Dr. Dempsey), HTN, GERD, Asthma, vitamin D deficiency, neuropathy, and sleep apnea (uses CPAP at night) admitted for: Metabolic encephalopathy likely 2/2 acute hypercapneic respiratory failure Obesity Hypoventilation Syndrome RICHAR -had worsening repetitive speech and worsening tremors; patient had not been wearing home O2 but had been using her night-time CPAP -continue CPAP for respiratory support at night, transition to N/C during the daytime as tolerated -COVID/flu negative -ABx: treated with rocephin and vanc, Dc'd on 08/11 due to no growth on BCx and no clinical signs of infection -serum drug screen negative, unable to perform UDS -will d/c topamax for now as this can be associated with increased drowsiness and tremors -started lyrica 100mg qd, which is lower than her previous dose of 100mg bid. Tolerated well -consult Pulmonology, Dr. Parmar & Dr. Mcdonnell: Decreased to 10 mg prednisone QD for remainder of rehab stay Anxiety -will start hydroxyzine qhs -discussed outpatient f/u at our clinic for anxiety/depression meds Physical Deconditioning -due to obesity and lack of activity at home- per patient -PT/OT- recommend rehab, awaiting placement Worsening resting tremors -worsening over the last week, none apparent on exam this morning -patient of Dr. Sierra, has next appointment in August -CT/MRI of brain within the past few months, pt reports results were normal -on primidone at home -can consider consulting neurology if tremors worsening Elevated troponin -trop 0.051 > 0.058 > 0.049 -EKG demonstrates no ST changes, patient denies chest pain ESRD on HD -patient has HD /th/sat, had 3hrs of HD 08/07 before being transferred to the ED -Consult Urologic Surgeon, Dr. Dempsey--appreciate recs, will arrange for HD while inpatient -verified Fosrenol dosing is [address] Dempsey -continue other HD meds Hx of HTN -patient has hx of being borderline hypotensive in clinic -takes midodrine on HD days, will continue while in hospital -no HTN meds at this time Neuropathy -restart lyrica at lower dose today and monitor mental status Asthma -continue home medication regimen Diet: Renal High protein DVT ppx: heparin CODE: Full PCP: Ana Laura Dispo: Stable, admitted to medical. Pulmonology & Nephrology consulted, appreciate recs. Awaiting placement hopefully DC to [facility] today. Addendum - Attending - Attending Attestation Date/Time: 08/16/20 6699 I personally evaluated the patient and discussed the management with Dr. Arevalo I agree with the History, Examination, Assessment and Plan documented above with any addition or exceptions noted below.
[2020-08-16] MEDS: Mometasone 200 MCG/Formoterol 5 MCG 120 PUFF INHALER INH SCH ×2 (07:04→19:26)
--- NOTE | 2020-08-16 08:59 | PRG ---
DATE OF SERVICE: 08/16/2020 SUBJECTIVE: Ms. De La Vega is a 65-year-old female with ESRD, currently undergoing hemodialysis. She was initially admitted for mental status change, which was secondary to her Lyrica. This was adjusted. Her mentation is much improved. We are awaiting placement at the rehab. No available bed yet at the present time, but may be soon available-later this afternoon versus in a.m. Due to the change in a bed settings, her dialysis days will now be Thursday, Thursday, Thursday, starting tomorrow. She is currently undergoing 3.5-hour dialysis today. No complaints of chest pain or shortness of breath. OBJECTIVE: VITAL SIGNS: Blood pressure 100/70 heart rate 63, respiratory rate 16, temperature 98.4, O2 saturation 95%. GENERAL: Awake, alert, comfortable, not in overt distress. SKIN: Adequate turgor. HEENT: She has a pinkish conjunctivae. Anicteric sclerae. NECK: No neck mass. No carotid bruits. No JVD. CHEST: No deformities. LUNGS: Clear breath sounds. No wheezing. No crackles. HEART: Normal sinus rhythm. No murmurs. No gallops. No rubs. ABDOMEN: Globular, soft, nontender. No masses. EXTREMITIES: No edema. No deformities. MEDICATIONS: August 16, 2020, was reviewed. LABORATORY DATA: August 14, 2020; white count 10.8, hemoglobin 14.2. Sodium 136, potassium 3.9, chloride 94, carbon dioxide 26, BUN 61, creatinine 11.43, calcium 8.5. ASSESSMENT AND PLAN: 1. End-stage renal disease, stable. We will continue current hemodialysis regimen of 3.5 hours. Due to her being transferred to the rehab, her dialysis schedule will be Thursday, Thursday, Thursday, starting tomorrow. 2. Mental status change, much improved. Adjustment to Lyrica has been done. 3. Anemia - stable - no indication for any EPOGEN Agree with current management. Recheck basic met and CBC in the a.m. Job ID: [id number] [facility]
[2020-08-16] MEDS: Sevelamer Carbonate 800 MG TAB PO SCH ×3 (11:01→17:20)
[2020-08-16] MEDS: Heparin 5,000 UNITS/ML VIAL SC SCH ×3 (11:01→20:24)
[2020-08-16] MEDS: Lanthanum Carbonate 500 mg Tablet PO SCH ×3 (11:01→17:20)
[2020-08-16] MEDS: Calcium Acetate 667 MG CAP PO SCH ×3 (11:01→17:20)
[2020-08-16] MEDS: Pregabalin 50 MG CAP PO SCH (12:46)
[2020-08-16] MEDS: predniSONE 20 MG TAB PO SCH (12:48)
[2020-08-16] MEDS: Cyanocobalamin (Vitamin B-12) 1,000 MCG TAB PO SCH (12:48)
[2020-08-16] MEDS: Primidone 50 MG TAB PO SCH ×2 (12:50→20:20)
[2020-08-16] MEDS: Atorvastatin Calcium 40 MG TAB PO SCH (20:18)
[2020-08-16] MEDS: hydrOXYzine 25 MG TAB PO SCH (20:19)
[2020-08-16] MEDS: Clopidogrel Bisulfate 75 MG TAB PO SCH (20:19)
[2020-08-16] MEDS: Acetaminophen 325 MG TAB PO PRN (20:19)
[2020-08-16] MEDS: Montelukast Sodium 10 mg Tablet PO SCH (20:19)
[2020-08-16] MEDS: Fluticasone Propionate Nasal Spray 16 gm Bottle NASAL SCH (20:22)
[2020-08-16] MEDS: Nystatin Cream 30 GM TUBE TOP PRN (20:22)
[2020-08-16] MEDS: diphenhydrAMINE 25 MG CAP PO PRN (23:05)
[2020-08-16] MEDS: Melatonin 3 MG TAB PO PRN (23:05)
[2020-08-17] MEDS: Mometasone 200 MCG/Formoterol 5 MCG 120 PUFF INHALER INH SCH (06:37)
--- NOTE | 2020-08-17 07:04 | PDOC.FM ---
- Subjective Subjective: Patient doing well this AM, frustrated that she feels like she isn't getting medications on time. Otherwise no acute concerns, no acute events overnight. - Objective MAR Reviewed: Yes Vital Signs & Weight: Vital Signs (12 hours) Temp Pulse Resp BP Pulse Ox 08/17/20 06:35 79 16 93 L 08/16/20 20:00 94 L 08/16/20 19:36 98.7 F 71 20 117/63 94 L 08/16/20 19:25 81 16 93 L Weight Admit Weight 106.14 kg Weight 123.3 kg Most Recent Monitor Data Heart Rate from ECG 81 NIBP 133/78 NIBP BP-Mean 96 Respiration from ECG 19 SpO2 96 I&O: 08/16/20 08/17/20 08/18/20 06:59 06:59 06:59 Intake Total 1400 590 Balance 1400 590 Result Diagrams: 08/17/20 06:37 08/17/20 06:36 Phys Exam - Physical Examination Constitutional: NAD Respiratory: no wheezing, no rales, no rhonchi, clear to auscultation bilateral Cardiovascular: RRR, no significant murmur, no rub Gastrointestinal: soft, non-tender, no distention, positive bowel sounds Dx/Plan - Plan Plan: Patient is a 65F with PMHx of ESRD on HD (//Sat with Dr. Dempsey), HTN, GERD, Asthma, vitamin D deficiency, neuropathy, and sleep apnea (uses CPAP at night) admitted for: Metabolic encephalopathy likely 2/2 acute hypercapneic respiratory failure Obesity Hypoventilation Syndrome RICHAR -had worsening repetitive speech and worsening tremors; patient had not been wearing home O2 but had been using her night-time CPAP -continue CPAP for respiratory support at night, transition to N/C during the daytime as tolerated -COVID/flu negative -ABx: treated with rocephin and vanc, Dc'd on 08/11 due to no growth on BCx and no clinical signs of infection -serum drug screen negative, unable to perform UDS -will d/c topamax for now as this can be associated with increased drowsiness and tremors -started lyrica 100mg qd, which is lower than her previous dose of 100mg bid. Tolerated well -consult Pulmonology, Dr. Parmar & Dr. Mcdonnell: Decreased to 10 mg prednisone QD for remainder of rehab stay Anxiety -will start hydroxyzine qhs -discussed outpatient f/u at our clinic for anxiety/depression meds Physical Deconditioning -due to obesity and lack of activity at home- per patient -PT/OT- recommend rehab, awaiting placement Worsening resting tremors -worsening over the last week, none apparent on exam this morning -patient of Dr. Sierra, has next appointment in August -CT/MRI of brain within the past few months, pt reports results were normal -on primidone at home -can consider consulting neurology if tremors worsening Elevated troponin -trop 0.051 > 0.058 > 0.049 -EKG demonstrates no ST changes, patient denies chest pain ESRD on HD -patient has HD tu/th/sat, had 3hrs of HD 08/07 before being transferred to the ED -Consult [employer] Lieutenant, Dr. Dempsey--appreciate recs, will arrange for HD while inpatient -verified Fosrenol dosing is [address] Dempsey -continue other HD meds Hx of HTN -patient has hx of being borderline hypotensive in clinic -takes midodrine on HD days, will continue while in hospital -no HTN meds at this time Neuropathy -restart lyrica at lower dose today and monitor mental status Asthma -continue home medication regimen Diet: Renal High protein DVT ppx: heparin CODE: Full PCP: Ana Laura Dispo: Stable, admitted to medical. Pulmonology & Nephrology consulted, appreciate recs. Awaiting placement hopefully DC to [facility] today. Addendum - Attending - Attending Attestation Date/Time: 08/17/20 6607 I personally evaluated the patient and discussed the management with Dr. Arevalo. I agree with the History, Examination, Assessment and Plan documented above with any addition or exceptions noted below.
[2020-08-17 07:06] LABS: #Basophils 0.1 thou/uL (0.0-0.2); #Eosinphils 0.4 thou/uL (0.0-0.7); #Lymphocytes 2.7 thou/uL (1.20-3.40); #Monocytes 1.1 thou/uL (0.11-0.59); #Neutrophils 9.2 thou/uL (1.40-6.50); %Basophils 0.5 % (0.0-1.0); %Eosinophils 2.7 % (0.0-10.0); %Lymphocytes 20.1 % (21.0-51.0); %Monocytes 8.4 % (0.0-10.0); %Neutrophils 68.3 % (42.0-75.0); Hemoglobin 14.6 g/dL (12.0-16.0); Mean Corpuscular HGB CONC 30.7 g/dL (32.0-36.0); Mean Corpuscular Hemoglobin 32.3 pg (27.0-31.0); Mean Platelet Volume 10.1 fL (7.4-10.4); Platelet Count 347 thou/uL (130-400); RBC Distribution Width 14.4 % (11.5-14.5); Red Blood Cell (RBC) Count 4.54 mill/uL (4.20-5.40); White Blood Cell (WBC) Count 13.4 thou/uL (4.8-10.8)
[2020-08-17 07:25] LABS: Anion Gap 20 mmol/L (10-20); BUN (Urea Nitrogen) 33 mg/dL (9.8-20.1); Calc. Creatinine Clearance 14 mL/min (70-130); Calcium 9.2 mg/dL (7.8-10.44); Carbon Dioxide 26 mmol/L (23-31); Chloride 96 mmol/L (98-107); Glucose 119 mg/dL (80-115); Potassium 3.6 mmol/L (3.5-5.1); Sodium 138 mmol/L (136-145)
[2020-08-17] MEDS: predniSONE 20 MG TAB PO SCH (08:22)
[2020-08-17] MEDS: Lanthanum Carbonate 500 mg Tablet PO SCH ×2 (08:22→14:34)
[2020-08-17] MEDS: Sevelamer Carbonate 800 MG TAB PO SCH ×2 (08:23→14:33)
[2020-08-17] MEDS: Cyanocobalamin (Vitamin B-12) 1,000 MCG TAB PO SCH (08:23)
[2020-08-17] MEDS: Pregabalin 50 MG CAP PO SCH (08:24)
[2020-08-17] MEDS: Calcium Acetate 667 MG CAP PO SCH ×2 (08:25→14:33)
[2020-08-17] MEDS: Heparin 5,000 UNITS/ML VIAL SC SCH ×2 (08:26→14:51)
[2020-08-17] MEDS: Primidone 50 MG TAB PO SCH (14:50)
--- NOTE | 2020-08-17 16:44 | DIS ---
DATE OF ADMISSION: 08/07/2020 DATE OF DISCHARGE: 08/17/2020 ADMITTING ATTENDING: Dr. Castro. DISCHARGE ATTENDING: Dr. Talley. RESIDENT: Lv Arevalo MD. CONSULTS: 1. Nephrology, Dr. Dempsey on 08/08/2020. 2. Pulmonology, Dr. Mcdonnell on 08/08/2020. PROCEDURES: The patient received dialysis as scheduled while in the hospital. The patient was switched from Thursday, , Thursday schedule to Thursday, Thursday, Thursday in order for easy transition to rehab facility. The patient had CT of the brain without contrast showing no acute intracranial events. The patient had a chest x-ray showing prominence of the pulmonary vascularity with haziness in the lower lung rosario. PRIMARY DIAGNOSIS: Metabolic encephalopathy due to acute hypercapnic respiratory failure secondary to unintentional medication overdose likely. SECONDARY DIAGNOSES: Worsening resting tremors; elevated troponin; end-stage renal disease, on hemodialysis; hypertension; neuropathy; asthma; obstructive sleep apnea. DISCHARGE MEDICATIONS: 1. Prednisone 10 mg p.o. daily while in rehab facility. Medication can be stopped by physician at rehab facility. 2. Atorvastatin 80 mg p.o. at bedtime. 3. Symbicort two puffs inhaled b.i.d. 4. Calcium acetate 667 mg p.o. t.i.d. 5. Plavix 75 mg p.o. at bedtime. 6. Vitamin B12, 1000 mcg p.o. daily. 7. Flonase nasal spray, one spray each naris at bedtime. 8. DuoNeb 3 mL nebulized solution b.i.d. 9. Fosrenol 1000 mg p.o. t.i.d. 10. Claritin 10 mg p.o. daily. 11. Midodrine 5 mg p.o. q.2 days, take one tablet before dialysis and one tablet if needed after dialysis. 12. Singulair 10 mg p.o. at bedtime. 13. Protonix 40 mg p.o. b.i.d. 14. Lyrica 100 mg p.o. daily. 15. Primidone 100 mg p.o. b.i.d. 16. Renvela 2.4 g p.o. t.i.d. 17. Tylenol 650 mg p.o. q.4 hours p.r.n. 18. Budesonide 0.5 mg nebulized solution inhaled b.i.d. 19. Vitamin D3, 50 mcg p.o. daily. 20. Folic acid 1 mg p.o. daily. DISCONTINUED MEDICATIONS: Discontinue the patient's Topamax due to acute metabolic encephalopathy and decrease the patient's dose of Lyrica. HOSPITAL COURSE: The patient is a 65-year-old female, who originally presented to the hospital from dialysis for altered mental status. She reported for the past week, she had increasing memory issues and worsening resting tremor. She also supposed to be wearing 2 L nasal cannula at home, but recently had not been wearing it and uses CPAP at night. The patient had recently been seen in clinic and evaluated with a brain CT with and without contrast and MRI with and without contrast, that showed focal areas of enhancement; however, Radiology recommended no further imaging. Topamax controlled the patient's headaches when she was started on it by Dr. Osman's office. The patient's pregabalin dose was decreased for renal dosing and Topamax was stopped during hospital stay. The patient's headaches were improved and mental status improved. The patient was stable through the remainder of hospital stay and agreed to go to rehab. She wanted to go to rehab to get stronger to have less dependence on her nephew at home. The patient was started on a steroid taper by Pulmonology, which should be decreased during the time at rehab. She is currently on 10 mg of prednisone daily, which should be stopped unless further evaluation warrants continued steroid use by rehab physician. Imaging done at time of admission as above. DISPOSITION: Stable. DISCHARGE INSTRUCTIONS: 1. Location: [facility] inpatient rehab. 2. Diet: Renal diet, high-protein, heart healthy. 3. Activity: As tolerated with physical therapy and occupational therapy. 4. Followup: The patient should follow up with primary care physician, [facility], Dr. Bazzi within 2 weeks. The patient should follow up with Dr. Dempsey as scheduled for dialysis followup. The patient should follow up with Dr. Mcdonnell, Pulmonology at next scheduled appointment or as problems arise. The patient should follow up with Dr. Osman if headaches worsen. Job ID: [id number]
[2020-08-17 19:17] VITALS: BP 146/64; TEMP 98.1
== END 2020-08-17 16:10 | DRG 917 ==
LOC: ERS 16:01 → ERHOLD 19:04 → OBSVTOIN 20:44 → CCU 08-08 05:41 → T4-B 08-10 23:16
PROVIDERS: ADMIT Emergency Medicine; ATTEND Emergency Medicine
PROC: 5A09457 Assistance with Respiratory Ventilation, 24-96 Consecutive Hours, Continuous Positive Airway Pressure (ICD-10-PCS; principal; 2020-08-08)
PROC: 5A1D70Z Performance of Urinary Filtration, Intermittent, Less than 6 Hours Per Day (ICD-10-PCS; 2020-08-09)
DX: T42.6X1A Poisoning by other antiepileptic and sedative-hypnotic drugs, accidental (unintentional), initial encounter (principal); N18.6 End stage renal disease; G93.41 Metabolic encephalopathy; Z20.822 Contact with and (suspected) exposure to COVID-19; J96.02 Acute respiratory failure with hypercapnia; E66.2 Morbid (severe) obesity with alveolar hypoventilation; I12.0 Hypertensive chronic kidney disease with stage 5 chronic kidney disease or end stage renal disease; K21.9 Gastro-esophageal reflux disease without esophagitis; E55.9 Vitamin D deficiency, unspecified; G62.9 Polyneuropathy, unspecified; R25.1 Tremor, unspecified; R77.8 Other specified abnormalities of plasma proteins; J45.909 Unspecified asthma, uncomplicated; E78.5 Hyperlipidemia, unspecified; D63.1 Anemia in chronic kidney disease; E83.39 Other disorders of phosphorus metabolism; F41.9 Anxiety disorder, unspecified; Z68.43 Body mass index [BMI] 50.0-59.9, adult; Z99.2 Dependence on renal dialysis; Z88.1 Allergy status to other antibiotic agents; Z91.040 Latex allergy status; Z88.8 Allergy status to other drugs, medicaments and biological substances; Z91.048 Other nonmedicinal substance allergy status; Z79.01 Long term (current) use of anticoagulants; Z79.51 Long term (current) use of inhaled steroids; Z79.52 Long term (current) use of systemic steroids; Z79.899 Other long term (current) drug therapy; Z90.49 Acquired absence of other specified parts of digestive tract; Z99.3 Dependence on wheelchair
CPT/HCPCS: 0240U; 36415; 36416; 36600; 70450; 71045; 80048; 80053; 80202; 80307; 82140; 82553; 82805; 83605; 83690; 83735; 83880; 84145; 84484; 85025; 86850; 86900; 86901; 87040; 87340; 90935; 93005; 94640; 94660; 96365; 96367; G0257; G0378; J0692; J0696; J1644; J1720; J3370; J3490; J7512; J7620; Q0163

== ENCOUNTER 2021-01-14 08:52 | Inpatient (IN) | payer MEDICARE, BC ==
[~2021-01-14 08:52] MED LIST changes: -FLU VACC QS2017-18 36 mo. & older 0.5 ML SYRINGE IM ONE; +Heparin 10,000 UNITS/ 10 ML VIAL ONE
[2021-01-14 09:43] LABS: Hemoglobin 15.6 g/dL (12.0-16.0); Mean Corpuscular HGB CONC 31.4 g/dL (32.0-36.0); Mean Corpuscular Hemoglobin 30.7 pg (27.0-31.0); Mean Corpuscular Volume 97.6 fL (78.0-98.0); Mean Platelet Volume 9.4 fL (7.4-10.4); Platelet Count 378 thou/uL (130-400); RBC Distribution Width 15.2 % (11.5-14.5); White Blood Cell (WBC) Count 11.9 thou/uL (4.8-10.8)
[2021-01-14 10:00] LABS: ALT (SGPT) 9 U/L (8-55); AST (SGOT) 18 U/L (5-34); Albumin 3.7 g/dL (3.4-4.8); Alkaline Phosphatase 99 U/L (40-110); Anion Gap 30 mmol/L (10-20); BUN (Urea Nitrogen) 100 mg/dL (9.8-20.1); Bilirubin, Total 0.6 mg/dL (0.2-1.2); Calc. Creatinine Clearance 0 mL/min (70-130); Carbon Dioxide 19 mmol/L (23-31); Chloride 97 mmol/L (98-107); Globulin 4.1 g/dL (2.4-3.5); Glucose 97 mg/dL (80-115); Potassium 8.2 mmol/L (3.5-5.1); Protein, Total 7.8 g/dL (5.8-8.1); Sodium 138 mmol/L (136-145)
[2021-01-14 10:16] LABS: Band 7 % (5-11); Lymphocytes 17 % (21-51); MDiff Complete? YES; Monocytes 2 % (0-10); Neutrophil 74 % (42-75); Platelet Morphology Comment Appears Adequate; RBC Morphology Normal
[2021-01-14] MEDS ORDERED: Sodium Bicarb 50 MEQ/50 ML Abboject 8.4% SYRINGE ONE ×2 (10:23→11:12)
[2021-01-14] MEDS ORDERED: Dextrose 50% Abboject 50 ML SYRINGE ONE (10:23)
[2021-01-14] MEDS ORDERED: Calcium Chloride 1 GM/10 ML Abboject SYRINGE ONE ×2 (10:23→11:14)
[2021-01-14] MEDS ORDERED: Insulin Regular 300 UNITS/3 ML VIAL ONE (10:23)
[2021-01-14] MEDS ORDERED: Rocuronium Bromide 10 MG/ML (10ML VIAL) ONE (11:10)
[2021-01-14] MEDS ORDERED: Fentanyl 100 MCG/2 ML VIAL ONE ×2 (11:28→18:57)
[2021-01-14] MEDS ORDERED: fentaNYL Citrate/PF 2,000 MCG in Sodium Chloride 0.9% 60 ML IV SCH (11:30)
[2021-01-14 12:09] LABS: Actual Bicarbonate (HCO3a) 20.9 mEq/L (22-28); Analyzer IN Cardio ER; CO2 Tension 31.4 mmHg (35.0-45.0); Calcium, Ionized (arterial) 1.12 mmol/L (1.12-1.30); Carboxyhemoglobin (COHb) 0.8 gm% (0.0-3.0); Hemoglobin (Hb) 16.1 g/dL (12.0-16.0); O2 Tension (PaO2), arterial 189.7 mmHg (> 80.0); Potassium - ABG Lab 6.76 mmol/L (3.70-5.30); pH, Arterial 7.44 (7.35-7.45)
[2021-01-14 12:11] LABS: Puncture Site RRA
[2021-01-14] MEDS ORDERED: Electrolyte Replacement Protocol 1 EACH IVPB ONE (12:33)
[2021-01-14] MEDS ORDERED: Acetaminophen 325 MG TAB PO PRN (12:33)
[2021-01-14] MEDS ORDERED: Acetaminophen 650 MG Suppository PR PRN (12:33)
[2021-01-14] MEDS ORDERED: Midazolam HCl 5 mg/ml Vial ONE (12:44)
[2021-01-14] MEDS ORDERED: Ventilator Sedation Protocol 1 EACH FS SCH (12:45)
[2021-01-14] MEDS ORDERED: Propofol 1,000 MG/100 ML VIAL IV ONE ×3 (12:55→22:24)
[2021-01-14] MEDS ORDERED: Norepinephrine 8 MG/0.9% NS 250 ML ONE ×3 (13:08→21:32)
[2021-01-14 15:11] LABS: SARS-CoV-2 NAA Rapid Test Not Detected (NotDetected)
[2021-01-14] MEDS ORDERED: Fentanyl BOLUS 250 ML IVPB PRN (15:30)
[2021-01-14] MEDS ORDERED: Morphine 2 MG/ML VIAL SLOW IVP PRN (15:30)
[2021-01-14] MEDS ORDERED: DISCONTINUE PREVIOUS NARCOTIC PAIN MEDICATIONS AND BENZODIAZEPINES FS SCH (15:30)
[2021-01-14] MEDS ORDERED: Propofol BOLUS 1,000 MG/100 ML VIAL IV PRN (15:30)
[2021-01-14] MEDS ORDERED: Heparin 1,000 UNITS/ML VIAL ONE (16:05)
[2021-01-14] MEDS ORDERED: Fentanyl CADD 100 ML ONE (19:36)
[2021-01-14] MEDS: Heparin 5,000 UNITS/ML VIAL SC SCH ×2 (19:52→19:57)
[2021-01-14] MEDS: Famotidine/PF 20 mg/2ml Vial SLOW IVP SCH (19:56)
[2021-01-14] MEDS: Fentanyl CADD 100 ML IV SCH (19:57)
[2021-01-14] MEDS ORDERED: Lorazepam 2 MG/ML VIAL ONE (20:24)
[2021-01-14] MEDS: Lorazepam 2 MG/ML VIAL SLOW IVP PRN (20:26)
[2021-01-14 21:42] LABS: Anion Gap 26 mmol/L (10-20); BUN (Urea Nitrogen) 35 mg/dL (9.8-20.1); Calc. Creatinine Clearance 0 mL/min (70-130); Carbon Dioxide 20 mmol/L (23-31); Chloride 98 mmol/L (98-107); Glucose 90 mg/dL (80-115); Potassium 5.2 mmol/L (3.5-5.1); Sodium 139 mmol/L (136-145)
[2021-01-14] MEDS: Propofol 1,000 MG/100 ML VIAL IV PRN (22:28)
[2021-01-15] MEDS ORDERED: Lorazepam 2 MG/ML VIAL ONE ×4 (00:09→06:32)
[2021-01-15] MEDS: Lorazepam 2 MG/ML VIAL SLOW IVP PRN ×3 (00:14→06:39)
[2021-01-15] MEDS ORDERED: Norepinephrine 8 MG/0.9% NS 250 ML ONE ×2 (02:33→15:27)
[2021-01-15] MEDS ORDERED: Norepinephrine 16 MG in Dextrose 5% in Water 234 ML IVPB SCH ×2 (03:45→04:00)
[2021-01-15] MEDS ORDERED: Propofol 1,000 MG/100 ML VIAL IV ONE ×2 (04:25→23:20)
[2021-01-15] MEDS: Propofol 1,000 MG/100 ML VIAL IV PRN (04:31)
[2021-01-15] MEDS ORDERED: Fentanyl CADD 100 ML ONE (04:40)
[2021-01-15] MEDS: Fentanyl CADD 100 ML IV SCH (05:00)
[2021-01-15 05:12] LABS: Anion Gap 26 mmol/L (10-20); BUN (Urea Nitrogen) 39 mg/dL (9.8-20.1); Calc. Creatinine Clearance 12 mL/min (70-130); Calcium 8.7 mg/dL (7.8-10.44); Carbon Dioxide 19 mmol/L (23-31); Chloride 97 mmol/L (98-107); Glucose 109 mg/dL (80-115); Potassium 4.7 mmol/L (3.5-5.1); Sodium 137 mmol/L (136-145)
[2021-01-15 05:17] LABS: Lymphocytes 12 % (21-51); MDiff Complete? YES; Mean Corpuscular HGB CONC 31.4 g/dL (32.0-36.0); Mean Corpuscular Hemoglobin 30.5 pg (27.0-31.0); Mean Corpuscular Volume 97.2 fL (78.0-98.0); Mean Platelet Volume 9.3 fL (7.4-10.4); Monocytes 9 % (0-10); Neutrophil 79 % (42-75); Nucleated RBC 1 % (0); Platelet Count 296 thou/uL (130-400); Platelet Morphology Comment Appears Adequate; Red Blood Cell (RBC) Count 4.93 mill/uL (4.20-5.40)
[2021-01-15 08:08] LABS: Actual Bicarbonate (HCO3a) 18.7 mEq/L (22-28); Analyzer IN Cardio ER; Base Excess (BEa) -6.4 mEq/L (-2.0 to +3.0); CO2 Tension 36.2 mmHg (35.0-45.0); Calcium, Ionized (arterial) 1.06 mmol/L (1.12-1.30); Carboxyhemoglobin (COHb) 1.1 gm% (0.0-3.0); Hemoglobin (Hb) 15.5 g/dL (12.0-16.0); O2 Tension (PaO2), arterial 129.2 mmHg (> 80.0); Potassium - ABG Lab 4.23 mmol/L (3.70-5.30); pH, Arterial 7.33 (7.35-7.45)
[2021-01-15 08:10] LABS: Puncture Site RRA
[2021-01-15] MEDS ORDERED: DC Sedation Protocol FS ONE (09:31)
[2021-01-15] MEDS ORDERED: Midodrine HCl 5 MG TAB PO SCH (11:00)
[2021-01-15] MEDS ORDERED: Heparin 10,000 UNITS/ 10 ML VIAL ONE (11:55)
[2021-01-15 11:56] LABS: Actual Bicarbonate (HCO3a) 24.5 mEq/L (22-28); Analyzer IN Cardio ER; Base Excess (BEa) -6.5 mEq/L (-2.0 to +3.0); Calcium, Ionized (arterial) 1.07 mmol/L (1.12-1.30); Carboxyhemoglobin (COHb) 0.8 gm% (0.0-3.0); Hemoglobin (Hb) 15.5 g/dL (12.0-16.0); O2 Tension (PaO2), arterial 78.6 mmHg (> 80.0)
[2021-01-15] MEDS: Heparin 5,000 UNITS/ML VIAL SC SCH ×3 (12:27→20:49)
[2021-01-15 14:13] LABS: CO2 Tension 75.2 mmHg (35.0-45.0); Puncture Site RRA; pH, Arterial 7.13 (7.35-7.45)
[2021-01-15] MEDS ORDERED: Sodium Chloride 0.9% 500 ML IV SCH (14:15)
[2021-01-15] MEDS ORDERED: Norepinephrine 8 MG/0.9% NS 250 ML IVPB SCH (14:45)
[2021-01-15 14:55] LABS: Actual Bicarbonate (HCO3a) 22.7 mEq/L (22-28); Base Excess (BEa) -7.4 mEq/L (-2.0 to +3.0); Calcium, Ionized (arterial) 1.06 mmol/L (1.12-1.30); Carboxyhemoglobin (COHb) 0.9 gm% (0.0-3.0); Hemoglobin (Hb) 15.8 g/dL (12.0-16.0); O2 Tension (PaO2), arterial 74.6 mmHg (> 80.0); Potassium - ABG Lab 5.26 mmol/L (3.70-5.30)
[2021-01-15 14:56] LABS: Puncture Site LRA; pH, Arterial 7.16 (7.35-7.45)
[2021-01-15] MEDS: Sevelamer Carbonate 800 MG TAB PO SCH ×2 (15:35→16:16)
[2021-01-15] MEDS: Albumin 25% 25 GM/100 ML BOT IVPB SCH ×2 (15:40→20:49)
[2021-01-15] MEDS: Sodium Chloride 0.9% 1,000 ML IV SCH (16:12)
[2021-01-15] MEDS: Famotidine/PF 20 mg/2ml Vial SLOW IVP SCH (20:49)
[2021-01-15] MEDS ORDERED: Atorvastatin Calcium 40 MG TAB PO SCH (21:00)
[2021-01-15] MEDS ORDERED: Clopidogrel Bisulfate 75 MG TAB PO SCH (21:00)
[2021-01-15 22:36] LABS: Actual Bicarbonate (HCO3a) 20.9 mEq/L (22-28); Base Excess (BEa) -8.6 mEq/L (-2.0 to +3.0); Calcium, Ionized (arterial) 1.07 mmol/L (1.12-1.30); Carboxyhemoglobin (COHb) 1.1 gm% (0.0-3.0); Hemoglobin (Hb) 14.4 g/dL (12.0-16.0); O2 Tension (PaO2), arterial 69.7 mmHg (> 80.0); Potassium - ABG Lab 5.41 mmol/L (3.70-5.30)
[2021-01-15 22:48] LABS: CO2 Tension 60.6 mmHg (35.0-45.0); pH, Arterial 7.16 (7.35-7.45)
[2021-01-15 22:49] LABS: Puncture Site RBA
[2021-01-16 00:56] LABS: Actual Bicarbonate (HCO3a) 18.5 mEq/L (22-28); Base Excess (BEa) -7.4 mEq/L (-2.0 to +3.0); CO2 Tension 38.8 mmHg (35.0-45.0); Hemoglobin (Hb) 14.3 g/dL (12.0-16.0); O2 Tension (PaO2), arterial 67.6 mmHg (> 80.0); Potassium - ABG Lab 5.11 mmol/L (3.70-5.30)
[2021-01-16 01:13] LABS: Puncture Site RBA
[2021-01-16] MEDS ORDERED: DISCONTINUE PREVIOUS NARCOTIC PAIN MEDICATIONS AND BENZODIAZEPINES FS SCH (02:30)
[2021-01-16] MEDS ORDERED: Fentanyl BOLUS 250 ML IVPB PRN (02:30)
[2021-01-16] MEDS ORDERED: Propofol BOLUS 1,000 MG/100 ML VIAL IV PRN (02:30)
[2021-01-16] MEDS ORDERED: Propofol 1,000 MG/100 ML VIAL IV PRN (02:30)
[2021-01-16] MEDS ORDERED: Fentanyl CADD 100 ML IV SCH (02:30)
[2021-01-16] MEDS: Albumin 25% 25 GM/100 ML BOT IVPB SCH ×2 (03:05→08:30)
[2021-01-16 08:01] LABS: Actual Bicarbonate (HCO3a) 17.5 mEq/L (22-28); Base Excess (BEa) -9.7 mEq/L (-2.0 to +3.0); Calcium, Ionized (arterial) 1.01 mmol/L (1.12-1.30); Hemoglobin (Hb) 13.7 g/dL (12.0-16.0); O2 Tension (PaO2), arterial 81.3 mmHg (> 80.0)
[2021-01-16 08:03] LABS: Puncture Site RRA; pH, Arterial 7.23 (7.35-7.45)
[2021-01-16] MEDS: Sodium Chloride 0.9% 1,000 ML IV SCH (08:26)
[2021-01-16] MEDS: Norepinephrine 16 MG in Dextrose 5% in Water 234 ML IVPB PRN ×3 (08:28→18:45)
[2021-01-16] MEDS: Heparin 5,000 UNITS/ML VIAL SC SCH ×3 (08:30→20:27)
[2021-01-16] MEDS: Sevelamer Carbonate 800 MG TAB PO SCH ×3 (08:41→16:44)
[2021-01-16] MEDS: Lorazepam 2 MG/ML VIAL SLOW IVP PRN ×6 (09:20→21:26)
[2021-01-16 10:39] LABS: ALT (SGPT) 41 U/L (8-55); AST (SGOT) 61 U/L (5-34); Albumin 4.3 g/dL (3.4-4.8); Alkaline Phosphatase 107 U/L (40-110); Anion Gap 24 mmol/L (10-20); BUN (Urea Nitrogen) 30 mg/dL (9.8-20.1); Bilirubin, Total 2.2 mg/dL (0.2-1.2); Calc. Creatinine Clearance 17 mL/min (70-130); Calcium 8.8 mg/dL (7.8-10.44); Carbon Dioxide 24 mmol/L (23-31); Chloride 94 mmol/L (98-107); Globulin 2.9 g/dL (2.4-3.5); Glucose 83 mg/dL (80-115); Potassium 3.9 mmol/L (3.5-5.1); Protein, Total 7.2 g/dL (5.8-8.1); Sodium 138 mmol/L (136-145)
[2021-01-16 10:56] LABS: HBSAg Index 0.19 S/CO (0-0.99); Hep B Surf Ag Non-Reactive S/CO (NonReactive)
[2021-01-16 15:29] LABS: Hemoglobin 14.2 g/dL (12.0-16.0); Mean Corpuscular HGB CONC 29.8 g/dL (32.0-36.0); Mean Corpuscular Hemoglobin 28.9 pg (27.0-31.0); Mean Corpuscular Volume 97.1 fL (78.0-98.0); Mean Platelet Volume 9.7 fL (7.4-10.4); Platelet Count 236 thou/uL (130-400); RBC Distribution Width 14.9 % (11.5-14.5)
[2021-01-16 15:52] LABS: Anisocytosis SLIGHT = 6-15 cells (100X) (0-5/hpf); Band 14 % (5-11); Eosinophils 1 % (0-10); Lymphocytes 5 % (21-51); MDiff Complete? YES; Monocytes 8 % (0-10); Neutrophil 72 % (42-75); Nucleated RBC 2 % (0); Platelet Morphology Comment Appears Adequate; Polychromasia SLIGHT = 2-3 cells (100X) (0-2/hpf); White Blood Cell (WBC) Count 27.7 thou/uL (4.8-10.8)
[2021-01-16] MEDS ORDERED: Acetaminophen 650 MG Suppository PR PRN (20:16)
[2021-01-16] MEDS: Famotidine/PF 20 mg/2ml Vial SLOW IVP SCH (20:27)
[2021-01-16 20:35] LABS: Lactic Acid 1.5 mmol/L (0.5-2.2)
[2021-01-16 20:41] LABS: ALT (SGPT) 31 U/L (8-55); AST (SGOT) 54 U/L (5-34); Albumin 3.8 g/dL (3.4-4.8); Alkaline Phosphatase 99 U/L (40-110); Anion Gap 23 mmol/L (10-20); BUN (Urea Nitrogen) 15 mg/dL (9.8-20.1); Bilirubin, Total 2.1 mg/dL (0.2-1.2); Calc. Creatinine Clearance 20 mL/min (70-130); Calcium 8.2 mg/dL (7.8-10.44); Carbon Dioxide 20 mmol/L (23-31); Chloride 95 mmol/L (98-107); Globulin 2.5 g/dL (2.4-3.5); Glucose 75 mg/dL (80-115); Potassium 4.2 mmol/L (3.5-5.1); Protein, Total 6.3 g/dL (5.8-8.1); Sodium 134 mmol/L (136-145)
[2021-01-16] MEDS ORDERED: ANTIBIOTICS IVPB PRN (20:51)
[2021-01-16] MEDS ORDERED: VANCOMYCIN 2 GRAM/400 ML BAG 2 GM in Premix Bag 1 BAG IVPB SCH (21:00)
[2021-01-16] MEDS ORDERED: Piperacillin/Tazobactam 4.5 GM in Sodium Chloride 0.9% 100 ML IVPB SCH (21:00)
[2021-01-16] MEDS ORDERED: Ciprofloxacin Lactate/D5W 200 MG in Premix Bag 1 BAG IVPB SCH (21:00)
[2021-01-16 21:05] LABS: Band 10 % (5-11); Eosinophils 3 % (0-10); Hemoglobin 13.4 g/dL (12.0-16.0); Hypochromia SLIGHT = 6-15 cells (100X) (0-5/hpf); Lymphocytes 5 % (21-51); MDiff Complete? YES; Mean Corpuscular HGB CONC 31.3 g/dL (32.0-36.0); Mean Corpuscular Hemoglobin 30.5 pg (27.0-31.0); Mean Corpuscular Volume 97.5 fL (78.0-98.0); Mean Platelet Volume 9.5 fL (7.4-10.4); Monocytes 7 % (0-10); Neutrophil 74 % (42-75); Nucleated RBC 2 % (0); Platelet Count 261 thou/uL (130-400); Platelet Morphology Comment Appears Adequate; Reactive Lymphocytes 1 % (0-10); Red Blood Cell (RBC) Count 4.41 mill/uL (4.20-5.40); White Blood Cell (WBC) Count 28.8 thou/uL (4.8-10.8)
[2021-01-16] MEDS ORDERED: Dextrose 50% Abboject 50 ML SYRINGE ONE (21:12)
[2021-01-16] MEDS ORDERED: Vancomycin 1 GM in Premix Bag 1 BAG IVPB SCH (21:45)
[2021-01-16] MEDS ORDERED: Vancomycin HCl 750 MG in Sodium Chloride 0.9% 250 ML 250 ML IVPB SCH (21:45)
[2021-01-16] MEDS ORDERED: Vancomycin Sliding Scale 1 EACH FS ONE (21:45)
[2021-01-16] MEDS ORDERED: Vancomycin 1.5 GRAM/300 ML BAG 1.5 GM in Premix Bag 1 BAG IVPB SCH (21:45)
[2021-01-16] MEDS ORDERED: HOLD VANCOMYCIN FOR LEVEL >20 FS SCH (21:45)
[2021-01-16] MEDS ORDERED: VANCOMYCIN 1.25 GM/250 ML BAG 1.25 GM in Premix Bag 1 BAG IVPB SCH (21:45)
[2021-01-16] MEDS ORDERED: MEROPENEM 1 GM/50 ML 1 GM in Premix Bag 1 BAG IVPB SCH (23:59)
[2021-01-17] MEDS: Norepinephrine 16 MG in Dextrose 5% in Water 234 ML IVPB PRN ×2 (04:12→08:01)
[2021-01-17 04:24] LABS: ALT (SGPT) 24 U/L (8-55); AST (SGOT) 45 U/L (5-34); Albumin 3.1 g/dL (3.4-4.8); Alkaline Phosphatase 86 U/L (40-110); Anion Gap 19 mmol/L (10-20); BUN (Urea Nitrogen) 18 mg/dL (9.8-20.1); Bilirubin, Total 1.8 mg/dL (0.2-1.2); Calc. Creatinine Clearance 20 mL/min (70-130); Calcium 7.2 mg/dL (7.8-10.44); Carbon Dioxide 21 mmol/L (23-31); Chloride 95 mmol/L (98-107); Globulin 2.2 g/dL (2.4-3.5); Glucose 246 mg/dL (80-115); Magnesium 1.4 mg/dL (1.6-2.6); Potassium 3.7 mmol/L (3.5-5.1); Protein, Total 5.3 g/dL (5.8-8.1); Sodium 131 mmol/L (136-145)
[2021-01-17 04:27] LABS: Hemoglobin 12.5 g/dL (12.0-16.0); Mean Corpuscular HGB CONC 31.9 g/dL (32.0-36.0); Mean Corpuscular Hemoglobin 31.1 pg (27.0-31.0); Mean Corpuscular Volume 97.6 fL (78.0-98.0); Mean Platelet Volume 10.2 fL (7.4-10.4); Platelet Count 229 thou/uL (130-400); RBC Distribution Width 14.7 % (11.5-14.5); Red Blood Cell (RBC) Count 4.03 mill/uL (4.20-5.40); White Blood Cell (WBC) Count 23.6 thou/uL (4.8-10.8)
[2021-01-17] MEDS: Lorazepam 2 MG/ML VIAL SLOW IVP PRN ×5 (04:50→14:43)
[2021-01-17 05:07] LABS: Band 7 % (5-11); Eosinophils 1 % (0-10); Hypochromia SLIGHT = 6-15 cells (100X) (0-5/hpf); Lymphocytes 8 % (21-51); MDiff Complete? YES; Monocytes 13 % (0-10); Neutrophil 68 % (42-75); Platelet Morphology Comment Appears Adequate; Reactive Lymphocytes 3 % (0-10)
[2021-01-17 07:16] LABS: Actual Bicarbonate (HCO3a) 20.4 mEq/L (22-28); Base Excess (BEa) -4.6 mEq/L (-2.0 to +3.0); CO2 Tension 37.2 mmHg (35.0-45.0); Calcium, Ionized (arterial) 1.02 mmol/L (1.12-1.30); Carboxyhemoglobin (COHb) 1.5 gm% (0.0-3.0); O2 Tension (PaO2), arterial 72.5 mmHg (> 80.0); Potassium - ABG Lab 4.13 mmol/L (3.70-5.30); pH, Arterial 7.36 (7.35-7.45)
[2021-01-17 07:17] LABS: Puncture Site RRA
[2021-01-17] MEDS: Sevelamer Carbonate 800 MG TAB PO SCH ×3 (07:27→16:29)
[2021-01-17] MEDS: Sodium Chloride 0.9% 1,000 ML IV SCH (07:27)
[2021-01-17] MEDS: Heparin 5,000 UNITS/ML VIAL SC SCH ×3 (07:27→21:23)
[2021-01-17] MEDS ORDERED: Meropenem 500 MG in Sodium Chloride 0.9% 100 ML IVPB SCH (08:00)
[2021-01-17] MEDS: Midodrine HCl 5 MG TAB PER TUBE SCH ×3 (08:26→21:31)
[2021-01-17] MEDS ORDERED: GENTAMICIN SULFATE IVPB SCH (09:00)
[2021-01-17] MEDS: Meropenem 500 MG in Sodium Chloride 0.9% 100 ML IVPB SCH (16:35)
[2021-01-17] MEDS ORDERED: Gentamicin Sulfate 80 MG in Premix Bag 1 BAG IVPB PRN (17:54)
[2021-01-17] MEDS: Famotidine/PF 20 mg/2ml Vial SLOW IVP SCH (21:28)
[2021-01-18] MEDS: Norepinephrine 16 MG in Dextrose 5% in Water 234 ML IVPB PRN ×3 (01:42→21:43)
[2021-01-18] MEDS: Sodium Chloride 0.9% 1,000 ML IV SCH (03:19)
[2021-01-18 04:17] LABS: ALT (SGPT) 23 U/L (8-55); AST (SGOT) 40 U/L (5-34); Alkaline Phosphatase 100 U/L (40-110); Anion Gap 17 mmol/L (10-20); BUN (Urea Nitrogen) 30 mg/dL (9.8-20.1); Bilirubin, Total 1.1 mg/dL (0.2-1.2); Calc. Creatinine Clearance 17 mL/min (70-130); Calcium 8.9 mg/dL (7.8-10.44); Carbon Dioxide 24 mmol/L (23-31); Chloride 96 mmol/L (98-107); Globulin 2.8 g/dL (2.4-3.5); Glucose 145 mg/dL (80-115); Protein, Total 5.8 g/dL (5.8-8.1); Sodium 133 mmol/L (136-145)
[2021-01-18] MEDS: Lorazepam 2 MG/ML VIAL SLOW IVP PRN ×3 (04:34→20:45)
[2021-01-18 05:21] LABS: Anisocytosis SLIGHT = 6-15 cells (100X) (0-5/hpf); Band 21 % (5-11); Eosinophils 3 % (0-10); Hemoglobin 13.3 g/dL (12.0-16.0); Lymphocytes 3 % (21-51); MDiff Complete? YES; Mean Corpuscular HGB CONC 32.6 g/dL (32.0-36.0); Mean Corpuscular Hemoglobin 31.3 pg (27.0-31.0); Mean Corpuscular Volume 96.1 fL (78.0-98.0); Mean Platelet Volume 10.1 fL (7.4-10.4); Monocytes 5 % (0-10); Neutrophil 68 % (42-75); Platelet Count 219 thou/uL (130-400); RBC Distribution Width 14.8 % (11.5-14.5); Red Blood Cell (RBC) Count 4.25 mill/uL (4.20-5.40); White Blood Cell (WBC) Count 20.9 thou/uL (4.8-10.8)
[2021-01-18 07:12] LABS: Base Excess (BEa) -3.3 mEq/L (-2.0 to +3.0); CO2 Tension 35.7 mmHg (35.0-45.0); Calcium, Ionized (arterial) 1.13 mmol/L (1.12-1.30); Carboxyhemoglobin (COHb) 1.5 gm% (0.0-3.0); Hemoglobin (Hb) 13.9 g/dL (12.0-16.0); O2 Tension (PaO2), arterial 73.9 mmHg (> 80.0); Potassium - ABG Lab 3.81 mmol/L (3.70-5.30); pH, Arterial 7.39 (7.35-7.45)
[2021-01-18 07:37] LABS: ALV-art Gradient 131.025 mmHg (0-20); Puncture Site RBA
[2021-01-18] MEDS: Sevelamer Carbonate 800 MG TAB PO SCH ×3 (08:35→16:47)
[2021-01-18] MEDS: Midodrine HCl 5 MG TAB PER TUBE SCH ×3 (08:36→20:46)
[2021-01-18] MEDS: Heparin 5,000 UNITS/ML VIAL SC SCH ×3 (08:36→20:45)
[2021-01-18] MEDS ORDERED: Heparin 10,000 UNITS/ 10 ML VIAL ONE (09:21)
[2021-01-18] MEDS: Acetaminophen 325 MG TAB PO PRN (12:56)
[2021-01-18] MEDS: Acetaminophen 650 MG Suppository PR SCH ×2 (13:05→20:42)
[2021-01-18] MEDS: Meropenem 500 MG in Sodium Chloride 0.9% 100 ML IVPB SCH (16:44)
[2021-01-18] MEDS: Famotidine/PF 20 mg/2ml Vial SLOW IVP SCH (20:45)
[2021-01-19] MEDS: Sodium Chloride 0.9% 1,000 ML IV SCH (00:19)
[2021-01-19] MEDS: Acetaminophen 650 MG Suppository PR SCH ×4 (01:56→20:15)
[2021-01-19 04:35] LABS: ALT (SGPT) 17 U/L (8-55); AST (SGOT) 34 U/L (5-34); Alkaline Phosphatase 106 U/L (40-110); Anion Gap 15 mmol/L (10-20); BUN (Urea Nitrogen) 44 mg/dL (9.8-20.1); Bilirubin, Total 0.8 mg/dL (0.2-1.2); Calc. Creatinine Clearance 16 mL/min (70-130); Calcium 9.3 mg/dL (7.8-10.44); Carbon Dioxide 25 mmol/L (23-31); Chloride 97 mmol/L (98-107); Glucose 125 mg/dL (80-115); Potassium 4.1 mmol/L (3.5-5.1); Sodium 133 mmol/L (136-145)
[2021-01-19 05:24] LABS: Band 12 % (5-11); Eosinophils 3 % (0-10); Hemoglobin 13.4 g/dL (12.0-16.0); Large Platelets SLIGHT; Lymphocytes 2 % (21-51); MDiff Complete? YES; Mean Corpuscular HGB CONC 31.1 g/dL (32.0-36.0); Mean Corpuscular Hemoglobin 29.9 pg (27.0-31.0); Mean Corpuscular Volume 95.9 fL (78.0-98.0); Mean Platelet Volume 10.6 fL (7.4-10.4); Monocytes 9 % (0-10); Neutrophil 67 % (42-75); Nucleated RBC 1 % (0); Platelet Count 230 thou/uL (130-400); Platelet Morphology Comment Appears Adequate; Polychromasia SLIGHT = 2-3 cells (100X) (0-2/hpf); RBC Distribution Width 14.9 % (11.5-14.5); Reactive Lymphocytes 7 % (0-10); Red Blood Cell (RBC) Count 4.47 mill/uL (4.20-5.40); White Blood Cell (WBC) Count 17.4 thou/uL (4.8-10.8)
[2021-01-19 07:32] LABS: Actual Bicarbonate (HCO3a) 20.7 mEq/L (22-28); Base Excess (BEa) -2.5 mEq/L (-2.0 to +3.0); CO2 Tension 31.6 mmHg (35.0-45.0); Calcium, Ionized (arterial) 1.18 mmol/L (1.12-1.30); Carboxyhemoglobin (COHb) 1.2 gm% (0.0-3.0); O2 Tension (PaO2), arterial 70.9 mmHg (> 80.0); Potassium - ABG Lab 3.82 mmol/L (3.70-5.30); pH, Arterial 7.44 (7.35-7.45)
[2021-01-19 08:08] LABS: Puncture Site RBA
[2021-01-19] MEDS: Sevelamer Carbonate 800 MG TAB PO SCH ×3 (08:20→17:22)
[2021-01-19] MEDS: Heparin 5,000 UNITS/ML VIAL SC SCH ×3 (08:20→20:15)
[2021-01-19] MEDS: Midodrine HCl 5 MG TAB PER TUBE SCH ×3 (08:20→20:15)
[2021-01-19] MEDS: Acetaminophen 325 MG TAB PO PRN ×2 (08:25→14:52)
[2021-01-19] MEDS ORDERED: Heparin 10,000 UNITS/ 10 ML VIAL ONE (09:22)
[2021-01-19] MEDS: methylPREDNISolone Sod Succ 40 MG VIAL IVP SCH ×2 (10:16→18:11)
[2021-01-19] MEDS: Norepinephrine 16 MG in Dextrose 5% in Water 234 ML IVPB PRN (13:38)
[2021-01-19 14:12] LABS: Vancomycin, Random 14.8 ug/mL (See Comment)
[2021-01-19] MEDS ORDERED: Vancomycin 1 GM in Premix Bag 1 BAG IVPB SCH (14:45)
[2021-01-19] MEDS: Morphine 2 MG/ML VIAL SLOW IVP PRN (15:22)
[2021-01-19] MEDS: Meropenem 500 MG in Sodium Chloride 0.9% 100 ML IVPB SCH (17:22)
[2021-01-19] MEDS: Famotidine/PF 20 mg/2ml Vial SLOW IVP SCH (20:15)
[2021-01-20] MEDS: methylPREDNISolone Sod Succ 40 MG VIAL IVP SCH ×3 (00:31→17:33)
[2021-01-20] MEDS: Acetaminophen 650 MG Suppository PR SCH ×4 (03:00→21:11)
[2021-01-20 05:03] LABS: ALT (SGPT) 17 U/L (8-55); AST (SGOT) 29 U/L (5-34); Alkaline Phosphatase 90 U/L (40-110); Anion Gap 16 mmol/L (10-20); BUN (Urea Nitrogen) 39 mg/dL (9.8-20.1); Bilirubin, Total 0.5 mg/dL (0.2-1.2); Calc. Creatinine Clearance 18 mL/min (70-130); Carbon Dioxide 24 mmol/L (23-31); Chloride 96 mmol/L (98-107); Globulin 3.5 g/dL (2.4-3.5); Glucose 125 mg/dL (80-115); Potassium 4.4 mmol/L (3.5-5.1); Protein, Total 6.5 g/dL (5.8-8.1); Sodium 132 mmol/L (136-145)
[2021-01-20 05:17] LABS: Anisocytosis SLIGHT = 6-15 cells (100X) (0-5/hpf); Band 18 % (5-11); Hemoglobin 13.5 g/dL (12.0-16.0); Lymphocytes 6 % (21-51); MDiff Complete? YES; Mean Corpuscular HGB CONC 32.2 g/dL (32.0-36.0); Mean Corpuscular Hemoglobin 30.8 pg (27.0-31.0); Mean Corpuscular Volume 95.8 fL (78.0-98.0); Mean Platelet Volume 10.5 fL (7.4-10.4); Monocytes 6 % (0-10); Neutrophil 70 % (42-75); Platelet Count 241 thou/uL (130-400); RBC Distribution Width 14.9 % (11.5-14.5); Red Blood Cell (RBC) Count 4.37 mill/uL (4.20-5.40); White Blood Cell (WBC) Count 17.2 thou/uL (4.8-10.8)
[2021-01-20 07:06] LABS: Actual Bicarbonate (HCO3a) 23.5 mEq/L (22-28); Base Excess (BEa) -0.5 mEq/L (-2.0 to +3.0); CO2 Tension 36.8 mmHg (35.0-45.0); Calcium, Ionized (arterial) 1.26 mmol/L (1.12-1.30); Carboxyhemoglobin (COHb) 1.1 gm% (0.0-3.0); Hemoglobin (Hb) 14.1 g/dL (12.0-16.0); O2 Tension (PaO2), arterial 69.4 mmHg (> 80.0); Potassium - ABG Lab 4.38 mmol/L (3.70-5.30); pH, Arterial 7.42 (7.35-7.45)
[2021-01-20] MEDS: Sevelamer Carbonate 800 MG TAB PO SCH ×3 (07:41→17:33)
[2021-01-20] MEDS: Midodrine HCl 5 MG TAB PER TUBE SCH ×3 (07:41→21:12)
[2021-01-20] MEDS: Acetaminophen 325 MG TAB PO PRN ×2 (07:41→14:30)
[2021-01-20 07:50] LABS: Puncture Site RBA
[2021-01-20] MEDS: Heparin 5,000 UNITS/ML VIAL SC SCH ×3 (07:58→21:12)
[2021-01-20] MEDS: Morphine 2 MG/ML VIAL SLOW IVP PRN ×5 (08:11→21:10)
[2021-01-20] MEDS ORDERED: methylPREDNISolone Sod Succ 40 MG VIAL IVP SCH (08:15)
[2021-01-20] MEDS: Polyethylene Glycol 3350 17 GM Packet PER TUBE SCH (11:24)
[2021-01-20] MEDS: Senokot S 8.6-50 MG TAB PER TUBE SCH ×2 (11:25→21:12)
[2021-01-20] MEDS: Meropenem 500 MG in Sodium Chloride 0.9% 100 ML IVPB SCH (14:31)
[2021-01-20] MEDS: Famotidine/PF 20 mg/2ml Vial SLOW IVP SCH (21:11)
[2021-01-20] MEDS: Lorazepam 2 MG/ML VIAL SLOW IVP PRN (21:12)
[2021-01-21] MEDS: Acetaminophen 650 MG Suppository PR SCH ×4 (05:38→21:56)
[2021-01-21] MEDS: methylPREDNISolone Sod Succ 40 MG VIAL IVP SCH ×2 (05:57→16:30)
[2021-01-21] MEDS: Polyethylene Glycol 3350 17 GM Packet PER TUBE SCH (07:14)
[2021-01-21] MEDS: Sevelamer Carbonate 800 MG TAB PO SCH ×3 (07:14→15:19)
[2021-01-21] MEDS: Lorazepam 2 MG/ML VIAL SLOW IVP PRN ×5 (07:15→21:41)
[2021-01-21] MEDS: Senokot S 8.6-50 MG TAB PER TUBE SCH ×2 (07:15→21:57)
[2021-01-21] MEDS: Midodrine HCl 5 MG TAB PER TUBE SCH ×3 (07:15→21:57)
[2021-01-21] MEDS: Heparin 5,000 UNITS/ML VIAL SC SCH ×3 (07:15→21:56)
[2021-01-21 07:37] LABS: Actual Bicarbonate (HCO3a) 24.2 mEq/L (22-28); Base Excess (BEa) -1.6 mEq/L (-2.0 to +3.0); CO2 Tension 44.9 mmHg (35.0-45.0); Carboxyhemoglobin (COHb) 0.5 gm% (0.0-3.0); Hemoglobin (Hb) 14.1 g/dL (12.0-16.0); O2 Tension (PaO2), arterial 79.2 mmHg (> 80.0); Potassium - ABG Lab 4.86 mmol/L (3.70-5.30); pH, Arterial 7.35 (7.35-7.45)
[2021-01-21 07:39] LABS: ALV-art Gradient 114.225 mmHg (0-20); Puncture Site RBA
[2021-01-21 08:54] LABS: Hemoglobin 13.5 g/dL (12.0-16.0); Mean Corpuscular HGB CONC 31.6 g/dL (32.0-36.0); Mean Corpuscular Hemoglobin 30.1 pg (27.0-31.0); Mean Corpuscular Volume 95.2 fL (78.0-98.0); Mean Platelet Volume 10.4 fL (7.4-10.4); Platelet Count 295 thou/uL (130-400); RBC Distribution Width 14.7 % (11.5-14.5)
[2021-01-21 09:15] LABS: ALT (SGPT) 14 U/L (8-55); AST (SGOT) 25 U/L (5-34); Albumin 3.2 g/dL (3.4-4.8); Alkaline Phosphatase 88 U/L (40-110); Anion Gap 18 mmol/L (10-20); BUN (Urea Nitrogen) 68 mg/dL (9.8-20.1); Bilirubin, Total 0.5 mg/dL (0.2-1.2); Calc. Creatinine Clearance 14 mL/min (70-130); Calcium 10.2 mg/dL (7.8-10.44); Carbon Dioxide 22 mmol/L (23-31); Chloride 94 mmol/L (98-107); Globulin 3.2 g/dL (2.4-3.5); Glucose 119 mg/dL (80-115); Potassium 4.9 mmol/L (3.5-5.1); Protein, Total 6.4 g/dL (5.8-8.1); Sodium 129 mmol/L (136-145)
[2021-01-21 09:23] LABS: Band 9 % (5-11); Lymphocytes 8 % (21-51); MDiff Complete? YES; Monocytes 8 % (0-10); Neutrophil 73 % (42-75); Platelet Morphology Comment Appears Adequate; RBC Morphology Normal; Reactive Lymphocytes 2 % (0-10)
[2021-01-21] MEDS ORDERED: Fentanyl CADD 100 ML ONE (09:43)
[2021-01-21 13:29] LABS: Vancomycin, Random 15.7 ug/mL (See Comment)
[2021-01-21] MEDS: Acetaminophen 325 MG TAB PO PRN ×2 (13:47→21:57)
[2021-01-21] MEDS: CEFEPIME HCL IN DEXTROSE 5 % 1 GM in Premix Bag 1 BAG IVPB SCH (16:02)
[2021-01-21] MEDS: Norepinephrine 16 MG in Dextrose 5% in Water 234 ML IVPB PRN (16:33)
[2021-01-21] MEDS: Famotidine/PF 20 mg/2ml Vial SLOW IVP SCH (21:56)
[2021-01-22] MEDS ORDERED: Fentanyl CADD 100 ML ONE (05:59)
[2021-01-22] MEDS: Acetaminophen 650 MG Suppository PR SCH ×3 (06:03→13:38)
[2021-01-22] MEDS: methylPREDNISolone Sod Succ 40 MG VIAL IVP SCH ×2 (06:07→17:18)
[2021-01-22 07:08] LABS: Actual Bicarbonate (HCO3a) 24.5 mEq/L (22-28); Base Excess (BEa) -0.7 mEq/L (-2.0 to +3.0); CO2 Tension 42.3 mmHg (35.0-45.0); Calcium, Ionized (arterial) 1.26 mmol/L (1.12-1.30); Potassium - ABG Lab 4.74 mmol/L (3.70-5.30); pH, Arterial 7.38 (7.35-7.45)
[2021-01-22 07:10] LABS: O2 Tension (PaO2), arterial 53.3 mmHg (> 80.0); Puncture Site RRA
[2021-01-22 07:11] LABS: ALV-art Gradient 143.375 mmHg (0-20)
[2021-01-22] MEDS: Acetaminophen 325 MG TAB PO PRN ×2 (07:27→13:34)
[2021-01-22] MEDS: Sevelamer Carbonate 800 MG TAB PO SCH ×3 (07:27→17:17)
[2021-01-22] MEDS: Midodrine HCl 5 MG TAB PER TUBE SCH ×2 (07:27→14:42)
[2021-01-22] MEDS: Senokot S 8.6-50 MG TAB PER TUBE SCH (07:28)
[2021-01-22] MEDS: Lorazepam 2 MG/ML VIAL SLOW IVP PRN (07:28)
[2021-01-22] MEDS: Heparin 5,000 UNITS/ML VIAL SC SCH ×2 (07:28→14:42)
[2021-01-22] MEDS: Polyethylene Glycol 3350 17 GM Packet PER TUBE SCH (07:28)
[2021-01-22 08:49] LABS: Hemoglobin 13.2 g/dL (12.0-16.0); Mean Corpuscular HGB CONC 31.5 g/dL (32.0-36.0); Mean Corpuscular Hemoglobin 30.1 pg (27.0-31.0); Mean Corpuscular Volume 95.5 fL (78.0-98.0); Mean Platelet Volume 10.9 fL (7.4-10.4); Platelet Count 300 thou/uL (130-400); RBC Distribution Width 14.9 % (11.5-14.5); Red Blood Cell (RBC) Count 4.38 mill/uL (4.20-5.40); White Blood Cell (WBC) Count 18.4 thou/uL (4.8-10.8)
[2021-01-22 09:01] LABS: Anion Gap 20 mmol/L (10-20); BUN (Urea Nitrogen) 78 mg/dL (9.8-20.1); Calc. Creatinine Clearance 13 mL/min (70-130); Calcium 10.3 mg/dL (7.8-10.44); Carbon Dioxide 23 mmol/L (23-31); Chloride 92 mmol/L (98-107); Glucose 97 mg/dL (80-115); Potassium 5.1 mmol/L (3.5-5.1); Sodium 130 mmol/L (136-145)
[2021-01-22 09:47] LABS: Band 6 % (5-11); Lymphocytes 16 % (21-51); MDiff Complete? YES; Metamyelocyte 3 % (0-0); Monocytes 10 % (0-10); Myelocyte 1 % (0-0); Neutrophil 64 % (42-75); Nucleated RBC 1 % (0); Platelet Morphology Comment Appears Adequate; RBC Morphology Normal
[2021-01-22] MEDS: CEFEPIME HCL IN DEXTROSE 5 % 1 GM in Premix Bag 1 BAG IVPB SCH (17:17)
[2021-01-23] MEDS: Heparin 5,000 UNITS/ML VIAL SC SCH ×4 (00:08→21:36)
[2021-01-23] MEDS: Midodrine HCl 5 MG TAB PER TUBE SCH ×4 (00:09→21:36)
[2021-01-23] MEDS: Senokot S 8.6-50 MG TAB PER TUBE SCH ×3 (00:09→21:36)
[2021-01-23] MEDS: Famotidine/PF 20 mg/2ml Vial SLOW IVP SCH ×2 (00:09→21:36)
[2021-01-23] MEDS: Acetaminophen 650 MG Suppository PR SCH ×5 (00:10→20:00)
[2021-01-23] MEDS: Acetaminophen 325 MG TAB PO PRN ×3 (00:10→21:35)
[2021-01-23 03:43] LABS: Anion Gap 16 mmol/L (10-20); BUN (Urea Nitrogen) 44 mg/dL (9.8-20.1); Calc. Creatinine Clearance 20 mL/min (70-130); Calcium 9.7 mg/dL (7.8-10.44); Carbon Dioxide 26 mmol/L (23-31); Chloride 95 mmol/L (98-107); Glucose 120 mg/dL (80-115); Potassium 4.4 mmol/L (3.5-5.1); Sodium 133 mmol/L (136-145)
[2021-01-23 04:28] LABS: Band 4 % (5-11); Hemoglobin 13.9 g/dL (12.0-16.0); Large Platelets SLIGHT; Lymphocytes 11 % (21-51); MDiff Complete? YES; Mean Corpuscular HGB CONC 32.3 g/dL (32.0-36.0); Mean Corpuscular Hemoglobin 30.8 pg (27.0-31.0); Mean Corpuscular Volume 95.3 fL (78.0-98.0); Mean Platelet Volume 10.5 fL (7.4-10.4); Monocytes 8 % (0-10); Myelocyte 1 % (0-0); Neutrophil 76 % (42-75); Nucleated RBC 1 % (0); Platelet Count 332 thou/uL (130-400); Platelet Morphology Comment Appears Adequate; RBC Distribution Width 14.8 % (11.5-14.5); Red Blood Cell (RBC) Count 4.53 mill/uL (4.20-5.40); White Blood Cell (WBC) Count 20.1 thou/uL (4.8-10.8)
[2021-01-23] MEDS: methylPREDNISolone Sod Succ 40 MG VIAL IVP SCH ×2 (06:19→18:12)
[2021-01-23 07:35] LABS: Actual Bicarbonate (HCO3a) 22.9 mEq/L (22-28); Analyzer IN Cardio ER; Base Excess (BEa) -1.7 mEq/L (-2.0 to +3.0); CO2 Tension 38.4 mmHg (35.0-45.0); Calcium, Ionized (arterial) 1.19 mmol/L (1.12-1.30); Carboxyhemoglobin (COHb) 0.9 gm% (0.0-3.0); Hemoglobin (Hb) 14.4 g/dL (12.0-16.0); O2 Tension (PaO2), arterial 81.8 mmHg (> 80.0); pH, Arterial 7.39 (7.35-7.45)
[2021-01-23 07:44] LABS: Puncture Site RRA
[2021-01-23] MEDS: Polyethylene Glycol 3350 17 GM Packet PER TUBE SCH (08:06)
[2021-01-23] MEDS: Sevelamer Carbonate 800 MG TAB PO SCH ×3 (08:06→16:49)
[2021-01-23] MEDS ORDERED: Heparin 10,000 UNITS/ 10 ML VIAL ONE (08:48)
[2021-01-23] MEDS ORDERED: Vecuronium 10 MG VIAL IV SCH (10:30)
[2021-01-23] MEDS: Lorazepam 2 MG/ML VIAL SLOW IVP PRN ×2 (12:43→22:46)
[2021-01-23] MEDS: CEFEPIME HCL IN DEXTROSE 5 % 1 GM in Premix Bag 1 BAG IVPB SCH (16:49)
[2021-01-24] MEDS: Acetaminophen 650 MG Suppository PR SCH ×4 (02:00→20:08)
[2021-01-24] MEDS: Acetaminophen 325 MG TAB PO PRN ×3 (02:41→20:07)
[2021-01-24 04:19] LABS: Anion Gap 20 mmol/L (10-20); BUN (Urea Nitrogen) 85 mg/dL (9.8-20.1); Calc. Creatinine Clearance 15 mL/min (70-130); Calcium 9.6 mg/dL (7.8-10.44); Carbon Dioxide 23 mmol/L (23-31); Chloride 95 mmol/L (98-107); Glucose 150 mg/dL (80-115); Sodium 133 mmol/L (136-145)
[2021-01-24 04:34] LABS: Band 10 % (5-11); Lymphocytes 20 % (21-51); MDiff Complete? YES; Mean Corpuscular HGB CONC 31.3 g/dL (32.0-36.0); Mean Corpuscular Hemoglobin 29.9 pg (27.0-31.0); Mean Corpuscular Volume 95.7 fL (78.0-98.0); Mean Platelet Volume 10.5 fL (7.4-10.4); Monocytes 8 % (0-10); Neutrophil 62 % (42-75); Platelet Count 380 thou/uL (130-400); Red Blood Cell (RBC) Count 4.68 mill/uL (4.20-5.40); White Blood Cell (WBC) Count 21.5 thou/uL (4.8-10.8)
[2021-01-24] MEDS: methylPREDNISolone Sod Succ 40 MG VIAL IVP SCH ×2 (06:46→19:05)
[2021-01-24 07:03] LABS: Actual Bicarbonate (HCO3a) 21.4 mEq/L (22-28); Base Excess (BEa) -3.7 mEq/L (-2.0 to +3.0); CO2 Tension 39.2 mmHg (35.0-45.0); Calcium, Ionized (arterial) 1.21 mmol/L (1.12-1.30); Carboxyhemoglobin (COHb) 1.1 gm% (0.0-3.0); Hemoglobin (Hb) 14.7 g/dL (12.0-16.0); Potassium - ABG Lab 5.24 mmol/L (3.70-5.30); pH, Arterial 7.36 (7.35-7.45)
[2021-01-24 07:06] LABS: Puncture Site RBA
[2021-01-24] MEDS: Heparin 5,000 UNITS/ML VIAL SC SCH ×3 (10:03→20:08)
[2021-01-24] MEDS: Sevelamer Carbonate 800 MG TAB PO SCH ×3 (10:03→19:05)
[2021-01-24] MEDS: Polyethylene Glycol 3350 17 GM Packet PER TUBE SCH (10:03)
[2021-01-24] MEDS: Midodrine HCl 5 MG TAB PER TUBE SCH ×3 (10:04→20:08)
[2021-01-24] MEDS: Senokot S 8.6-50 MG TAB PER TUBE SCH ×2 (10:04→20:06)
[2021-01-24] MEDS ORDERED: Senokot 8.6 MG TAB PO SCH ×2 (12:30→21:00)
[2021-01-24] MEDS ORDERED: diphenhydrAMINE 50 MG/ML VIAL IVP SCH (16:45)
[2021-01-24] MEDS ORDERED: hydrALAZINE 25 MG TAB PO SCH (16:45)
[2021-01-24] MEDS ORDERED: Melatonin 3 MG TAB PO PRN (16:55)
[2021-01-24] MEDS ORDERED: Haloperidol Lactate 5 MG/ML VIAL IM SCH (18:24)
[2021-01-24] MEDS: CEFEPIME HCL IN DEXTROSE 5 % 1 GM in Premix Bag 1 BAG IVPB SCH (19:06)
[2021-01-24] MEDS: Famotidine/PF 20 mg/2ml Vial SLOW IVP SCH (20:08)
[2021-01-24] MEDS: Docusate Sodium 100 MG/10 ML UDCUP PO SCH (21:15)
[2021-01-25] MEDS: Acetaminophen 650 MG Suppository PR SCH ×4 (03:36→20:31)
[2021-01-25 04:21] LABS: Anion Gap 18 mmol/L (10-20); BUN (Urea Nitrogen) 67 mg/dL (9.8-20.1); Calc. Creatinine Clearance 19 mL/min (70-130); Calcium 9.4 mg/dL (7.8-10.44); Carbon Dioxide 26 mmol/L (23-31); Chloride 95 mmol/L (98-107); Glucose 104 mg/dL (80-115); Potassium 4.1 mmol/L (3.5-5.1); Sodium 135 mmol/L (136-145)
[2021-01-25 04:38] LABS: Hemoglobin 14.1 g/dL (12.0-16.0); Mean Corpuscular Hemoglobin 29.4 pg (27.0-31.0); Mean Corpuscular Volume 94.8 fL (78.0-98.0); Platelet Count 399 thou/uL (130-400); Red Blood Cell (RBC) Count 4.79 mill/uL (4.20-5.40); White Blood Cell (WBC) Count 23.9 thou/uL (4.8-10.8)
[2021-01-25 04:39] LABS: Band 4 % (5-11); Lymphocytes 10 % (21-51); MDiff Complete? YES; Mean Platelet Volume 10.2 fL (7.4-10.4); Monocytes 8 % (0-10); Neutrophil 78 % (42-75); Platelet Morphology Comment Appears Adequate; RBC Morphology Normal
[2021-01-25] MEDS: methylPREDNISolone Sod Succ 40 MG VIAL IVP SCH (05:42)
[2021-01-25] MEDS ORDERED: Melatonin 3 MG TAB PO PRN (08:12)
[2021-01-25] MEDS: Polyethylene Glycol 3350 17 GM Packet PER TUBE SCH (10:12)
[2021-01-25] MEDS: Midodrine HCl 5 MG TAB PER TUBE SCH ×3 (10:12→20:31)
[2021-01-25] MEDS: Acetaminophen 325 MG TAB PO PRN (10:13)
[2021-01-25] MEDS: Sevelamer Carbonate 800 MG TAB PO SCH ×3 (10:13→17:41)
[2021-01-25] MEDS: Senokot S 8.6-50 MG TAB PER TUBE SCH ×2 (10:14→20:31)
[2021-01-25] MEDS: Heparin 5,000 UNITS/ML VIAL SC SCH ×3 (10:14→20:31)
[2021-01-25] MEDS: Haloperidol Lactate 5 MG/ML VIAL SLOW IVP PRN ×2 (10:15→14:27)
[2021-01-25] MEDS: Docusate Sodium 100 MG/10 ML UDCUP PO SCH (10:29)
[2021-01-25] MEDS: CEFEPIME HCL IN DEXTROSE 5 % 1 GM in Premix Bag 1 BAG IVPB SCH (13:06)
[2021-01-25 16:16] VITALS: BP 137/88
[2021-01-25] MEDS: Famotidine 20 MG TAB PO SCH (20:29)
[2021-01-25] MEDS: Clopidogrel Bisulfate 75 MG TAB PO SCH (20:29)
[2021-01-25] MEDS: Atorvastatin Calcium 40 MG TAB PO SCH (20:30)
[2021-01-25] MEDS ORDERED: Montelukast Sodium 10 mg Tablet PO SCH (21:00)
[2021-01-25] MEDS: Primidone 50 MG TAB PO SCH (21:53)
[2021-01-26] MEDS: Acetaminophen 650 MG Suppository PR SCH ×4 (03:27→19:49)
[2021-01-26 04:13] LABS: Anion Gap 21 mmol/L (10-20); BUN (Urea Nitrogen) 93 mg/dL (9.8-20.1); Calc. Creatinine Clearance 13 mL/min (70-130); Calcium 9.5 mg/dL (7.8-10.44); Carbon Dioxide 23 mmol/L (23-31); Chloride 96 mmol/L (98-107); Glucose 102 mg/dL (80-115); Potassium 4.4 mmol/L (3.5-5.1); Sodium 136 mmol/L (136-145)
[2021-01-26 04:26] LABS: Mean Corpuscular HGB CONC 31.6 g/dL (32.0-36.0); Mean Corpuscular Hemoglobin 29.4 pg (27.0-31.0); Mean Corpuscular Volume 93.1 fL (78.0-98.0); Mean Platelet Volume 10.1 fL (7.4-10.4); Platelet Count 436 thou/uL (130-400); RBC Distribution Width 15.2 % (11.5-14.5); Red Blood Cell (RBC) Count 4.74 mill/uL (4.20-5.40); White Blood Cell (WBC) Count 23.6 thou/uL (4.8-10.8)
[2021-01-26 04:30] LABS: Band 3 % (5-11); Lymphocytes 12 % (21-51); MDiff Complete? YES; Metamyelocyte 2 % (0-0); Monocytes 13 % (0-10); Myelocyte 2 % (0-0); Neutrophil 68 % (42-75); Nucleated RBC 1 % (0); Platelet Morphology Comment Appears Adequate
[2021-01-26] MEDS: Acetaminophen 325 MG TAB PO PRN (09:49)
[2021-01-26] MEDS: Midodrine HCl 5 MG TAB PER TUBE SCH ×3 (09:50→20:37)
[2021-01-26] MEDS: Sevelamer Carbonate 800 MG TAB PO SCH ×3 (09:50→19:49)
[2021-01-26] MEDS: Senokot S 8.6-50 MG TAB PER TUBE SCH ×2 (09:50→19:51)
[2021-01-26] MEDS: Polyethylene Glycol 3350 17 GM Packet PER TUBE SCH (09:51)
[2021-01-26] MEDS: Heparin 5,000 UNITS/ML VIAL SC SCH ×3 (09:51→20:16)
[2021-01-26] MEDS: methylPREDNISolone Sod Succ 40 MG VIAL IVP SCH (09:51)
[2021-01-26] MEDS: Primidone 50 MG TAB PO SCH ×2 (10:30→19:50)
[2021-01-26 10:52] LABS: Actual Bicarbonate (HCO3v) 22 mEq/L (22-28); Base Excess -2.9 mEq/L (-2.0 to +3.0); Calcium, Ionized (venous) 1.12 mmol/L (1.16-1.32); Chloride (VBG) 97 mmol/L (98-106); Hemoglobin (Hb) 15.1 g/dL (11.7-16.1); Potassium (VBG) 4.57 mmol/L (3.70-5.30); Sodium 135.7 mmol/L (133-146); pH (venous) 7.36 (7.32-7.43)
[2021-01-26 11:09] LABS: Hemoglobin 14.5 g/dL (12.0-16.0); Mean Corpuscular HGB CONC 32.5 g/dL (32.0-36.0); Mean Corpuscular Hemoglobin 30.1 pg (27.0-31.0); Mean Corpuscular Volume 92.4 fL (78.0-98.0); RBC Distribution Width 15.4 % (11.5-14.5); Red Blood Cell (RBC) Count 4.82 mill/uL (4.20-5.40)
[2021-01-26 11:36] LABS: Band 4 % (5-11); Large Platelets SLIGHT; Lymphocytes 12 % (21-51); MDiff Complete? YES; Mean Platelet Volume 9.9 fL (7.4-10.4); Metamyelocyte 1 % (0-0); Monocytes 10 % (0-10); Neutrophil 73 % (42-75); Nucleated RBC 2 % (0); Platelet Count 413 thou/uL (130-400); Platelet Morphology Comment Appears Increased; Vacuoles SLIGHT; White Blood Cell (WBC) Count 23.5 thou/uL (4.8-10.8)
[2021-01-26 19:20] LABS: Mean Corpuscular HGB CONC 31.8 g/dL (32.0-36.0); Mean Corpuscular Hemoglobin 29.2 pg (27.0-31.0); Mean Corpuscular Volume 91.8 fL (78.0-98.0); Mean Platelet Volume 9.9 fL (7.4-10.4); Platelet Count 447 thou/uL (130-400); RBC Distribution Width 15.6 % (11.5-14.5); Red Blood Cell (RBC) Count 5.13 mill/uL (4.20-5.40)
[2021-01-26 19:22] LABS: Actual Bicarbonate (HCO3a) 22.7 mEq/L (22-28); CO2 Tension 28.6 mmHg (35.0-45.0); Calcium, Ionized (arterial) 1.13 mmol/L (1.12-1.30); Carboxyhemoglobin (COHb) 1.4 gm% (0.0-3.0); O2 Tension (PaO2), arterial 61.6 mmHg (> 80.0); Potassium - ABG Lab 4.07 mmol/L (3.70-5.30); pH, Arterial 7.52 (7.35-7.45)
[2021-01-26 19:23] LABS: Puncture Site RBA
[2021-01-26 19:25] LABS: Anion Gap 19 mmol/L (10-20); BUN (Urea Nitrogen) 60 mg/dL (9.8-20.1); Calc. Creatinine Clearance 19 mL/min (70-130); Calcium 9.3 mg/dL (7.8-10.44); Carbon Dioxide 23 mmol/L (23-31); Chloride 100 mmol/L (98-107); Glucose 113 mg/dL (80-115); Potassium 4.3 mmol/L (3.5-5.1); Sodium 138 mmol/L (136-145)
[2021-01-26 19:31] LABS: Band 5 % (5-11); Lymphocytes 6 % (21-51); MDiff Complete? YES; Monocytes 3 % (0-10); Myelocyte 2 % (0-0); Neutrophil 83 % (42-75); Nucleated RBC 1 % (0); Platelet Morphology Comment Appears Increased; Polychromasia SLIGHT = 2-3 cells (100X) (0-2/hpf); Reactive Lymphocytes 1 % (0-10); White Blood Cell (WBC) Count 29.6 thou/uL (4.8-10.8)
[2021-01-26] MEDS: Atorvastatin Calcium 40 MG TAB PO SCH (19:50)
[2021-01-26] MEDS: Clopidogrel Bisulfate 75 MG TAB PO SCH (19:50)
[2021-01-26] MEDS: Famotidine 20 MG TAB PO SCH (19:50)
[2021-01-26] MEDS: CEFEPIME HCL IN DEXTROSE 5 % 1 GM in Premix Bag 1 BAG IVPB SCH (23:22)
[2021-01-27] MEDS: Acetaminophen 650 MG Suppository PR SCH (03:15)
[2021-01-27 05:11] LABS: Band 2 % (5-11); Hemoglobin 13.9 g/dL (12.0-16.0); Lymphocytes 9 % (21-51); MDiff Complete? YES; Mean Corpuscular HGB CONC 31.3 g/dL (32.0-36.0); Mean Corpuscular Hemoglobin 29.2 pg (27.0-31.0); Metamyelocyte 6 % (0-0); Monocytes 10 % (0-10); Myelocyte 2 % (0-0); Neutrophil 70 % (42-75); Nucleated RBC 4 % (0); Platelet Count 428 thou/uL (130-400); Platelet Morphology Comment Appears Increased; Polychromasia SLIGHT = 2-3 cells (100X) (0-2/hpf); Promyelocytes 1 % (0-0); RBC Distribution Width 15.5 % (11.5-14.5); Red Blood Cell (RBC) Count 4.76 mill/uL (4.20-5.40); White Blood Cell (WBC) Count 31.5 thou/uL (4.8-10.8)
[2021-01-27 05:14] LABS: Anion Gap 22 mmol/L (10-20); BUN (Urea Nitrogen) 43 mg/dL (9.8-20.1); Calc. Creatinine Clearance 19 mL/min (70-130); Calcium 9.3 mg/dL (7.8-10.44); Carbon Dioxide 25 mmol/L (23-31); Chloride 96 mmol/L (98-107); Glucose 95 mg/dL (80-115); Potassium 3.9 mmol/L (3.5-5.1); Sodium 139 mmol/L (136-145)
[2021-01-27] MEDS ORDERED: Acetaminophen 650 MG Suppository PR PRN (05:41)
[2021-01-27] MEDS: Sevelamer Carbonate 800 MG TAB PO SCH ×3 (07:46→16:36)
[2021-01-27] MEDS: Midodrine HCl 5 MG TAB PER TUBE SCH ×3 (08:32→21:17)
[2021-01-27] MEDS: Polyethylene Glycol 3350 17 GM Packet PER TUBE SCH (08:32)
[2021-01-27] MEDS: Senokot S 8.6-50 MG TAB PER TUBE SCH ×2 (08:33→21:17)
[2021-01-27] MEDS: methylPREDNISolone Sod Succ 40 MG VIAL IVP SCH (08:39)
[2021-01-27] MEDS: Heparin 5,000 UNITS/ML VIAL SC SCH ×3 (08:39→21:18)
[2021-01-27] MEDS ORDERED: Vancomycin HCl 1.5 GM in Sodium Chloride 0.9% 250 ML 300 ML IVPB SCH (09:45)
[2021-01-27] MEDS ORDERED: VANCOMYCIN 2 GRAM/400 ML BAG 2 GM in Premix Bag 1 BAG IVPB SCH (09:45)
[2021-01-27] MEDS ORDERED: Vancomycin 1 GM in Premix Bag 1 BAG IVPB SCH (09:45)
[2021-01-27] MEDS ORDERED: HOLD VANCOMYCIN FOR LEVEL >20 FS SCH (09:45)
[2021-01-27] MEDS ORDERED: Vancomycin HCl 750 MG in Sodium Chloride 0.9% 250 ML 250 ML IVPB SCH (09:45)
[2021-01-27] MEDS ORDERED: Vancomycin HCl 1.25 GM in Sodium Chloride 0.9% 250 ML 250 ML IVPB SCH (09:45)
[2021-01-27] MEDS: CEFEPIME HCL IN DEXTROSE 5 % 1 GM in Premix Bag 1 BAG IVPB SCH (16:34)
[2021-01-27] MEDS: Clopidogrel Bisulfate 75 MG TAB PO SCH (21:17)
[2021-01-27] MEDS: Atorvastatin Calcium 40 MG TAB PO SCH (21:17)
[2021-01-28] MEDS: Sevelamer Carbonate 800 MG TAB PO SCH ×2 (08:00→16:00)
[2021-01-28] MEDS ORDERED: Pantoprazole 40 MG VIAL IVP SCH (09:00)
[2021-01-28 09:12] LABS: Anion Gap 27 mmol/L (10-20); BUN (Urea Nitrogen) 79 mg/dL (9.8-20.1); Calc. Creatinine Clearance 12 mL/min (70-130); Calcium 9.4 mg/dL (7.8-10.44); Carbon Dioxide 20 mmol/L (23-31); Chloride 98 mmol/L (98-107); Glucose 112 mg/dL (80-115); Potassium 4.7 mmol/L (3.5-5.1); Sodium 140 mmol/L (136-145)
[2021-01-28 09:19] LABS: Hemoglobin 13.4 g/dL (12.0-16.0); Mean Corpuscular Hemoglobin 28.6 pg (27.0-31.0); Mean Corpuscular Volume 95.1 fL (78.0-98.0); Mean Platelet Volume 9.7 fL (7.4-10.4); Platelet Count 447 thou/uL (130-400); RBC Distribution Width 16.1 % (11.5-14.5); White Blood Cell (WBC) Count 32.9 thou/uL (4.8-10.8)
[2021-01-28] MEDS: methylPREDNISolone Sod Succ 40 MG VIAL IVP SCH (09:37)
[2021-01-28] MEDS: Heparin 5,000 UNITS/ML VIAL SC SCH ×2 (09:38→15:00)
[2021-01-28] MEDS: Midodrine HCl 5 MG TAB PER TUBE SCH ×2 (09:39→15:00)
[2021-01-28] MEDS: Polyethylene Glycol 3350 17 GM Packet PER TUBE SCH (09:39)
[2021-01-28] MEDS: Senokot S 8.6-50 MG TAB PER TUBE SCH (09:40)
[2021-01-28 10:32] VITALS: BMI 47.7
[2021-01-28 10:50] LABS: Band 2 % (5-11); Eosinophils 1 % (0-10); Lymphocytes 8 % (21-51); MDiff Complete? YES; Metamyelocyte 1 % (0-0); Monocytes 10 % (0-10); Neutrophil 75 % (42-75); Nucleated RBC 3 % (0); Platelet Morphology Comment Appears Increased; Polychromasia SLIGHT = 2-3 cells (100X) (0-2/hpf); Reactive Lymphocytes 3 % (0-10)
[2021-01-28 16:16] VITALS: TEMP 98.7
[2021-01-28] MEDS ORDERED: Morphine 4 MG/ML VIAL ONE (16:30)
[2021-01-28] MEDS ORDERED: Morphine 4 MG/ML VIAL SLOW IVP PRN (16:43)
[2021-02-08] MEDS ORDERED: Heparin 10,000 UNITS/ 10 ML VIAL ONE (08:41)
== END 2021-01-28 17:10 | disposition hospice, inpatient (51) | DRG 207 ==
LOC: ERS 08:52 → ERHOLD 11:54 → CCU 01-15 11:54
PROVIDERS: ADMIT Family Medicine; ATTEND Family Medicine
PROC: 0BH17EZ Insertion of Endotracheal Airway into Trachea, Via Natural or Artificial Opening (ICD-10-PCS; 2021-01-14)
PROC: 5A1935Z Respiratory Ventilation, Less than 24 Consecutive Hours (ICD-10-PCS; 2021-01-14)
PROC: 06HY33Z Insertion of Infusion Device into Lower Vein, Percutaneous Approach (ICD-10-PCS; 2021-01-14)
PROC: 3E033XZ Introduction of Vasopressor into Peripheral Vein, Percutaneous Approach (ICD-10-PCS; 2021-01-14)
PROC: 5A1955Z Respiratory Ventilation, Greater than 96 Consecutive Hours (ICD-10-PCS; principal; 2021-01-15)
PROC: 0BH18EZ Insertion of Endotracheal Airway into Trachea, Via Natural or Artificial Opening Endoscopic (ICD-10-PCS; 2021-01-15)
PROC: 5A1D70Z Performance of Urinary Filtration, Intermittent, Less than 6 Hours Per Day (ICD-10-PCS; 2021-01-16)
PROC: B51W1ZZ Fluoroscopy of Dialysis Shunt/Fistula using Low Osmolar Contrast (ICD-10-PCS; 2021-01-23)
PROC: 5A09457 Assistance with Respiratory Ventilation, 24-96 Consecutive Hours, Continuous Positive Airway Pressure (ICD-10-PCS; 2021-01-26)
DX: J96.01 Acute respiratory failure with hypoxia (principal); N18.6 End stage renal disease; Z66 Do not resuscitate; Z51.5 Encounter for palliative care; G93.41 Metabolic encephalopathy; I50.31 Acute diastolic (congestive) heart failure; J15.1 Pneumonia due to Pseudomonas; T82.868A Thrombosis due to vascular prosthetic devices, implants and grafts, initial encounter; I13.2 Hypertensive heart and chronic kidney disease with heart failure and with stage 5 chronic kidney disease, or end stage renal disease; Z68.42 Body mass index [BMI] 45.0-49.9, adult; I82.612 Acute embolism and thrombosis of superficial veins of left upper extremity; J95.851 Ventilator associated pneumonia; E87.1 Hypo-osmolality and hyponatremia; K21.9 Gastro-esophageal reflux disease without esophagitis; G62.9 Polyneuropathy, unspecified; Y83.8 Other surgical procedures as the cause of abnormal reaction of the patient, or of later complication, without mention of misadventure at the time of the procedure; E66.01 Morbid (severe) obesity due to excess calories; G47.33 Obstructive sleep apnea (adult) (pediatric); E87.5 Hyperkalemia; J45.909 Unspecified asthma, uncomplicated; J96.02 Acute respiratory failure with hypercapnia; D63.1 Anemia in chronic kidney disease; E87.70 Fluid overload, unspecified; I95.9 Hypotension, unspecified; E78.5 Hyperlipidemia, unspecified; Z20.822 Contact with and (suspected) exposure to COVID-19; E16.2 Hypoglycemia, unspecified; Z99.2 Dependence on renal dialysis; Z91.040 Latex allergy status; Z78.1 Physical restraint status; Z88.1 Allergy status to other antibiotic agents; Z88.8 Allergy status to other drugs, medicaments and biological substances; Z90.49 Acquired absence of other specified parts of digestive tract; Z90.89 Acquired absence of other organs; Z90.81 Acquired absence of spleen; Z79.02 Long term (current) use of antithrombotics/antiplatelets
CPT/HCPCS: 31500; 36415; 36416; 36556; 36600; 36901; 71045; 76937; 80048; 80053; 80170; 80202; 82140; 82805; 83605; 83735; 83880; 83930; 84145; 85025; 85060; 87040; 87070; 87186; 87205; 87340; 88184; 88185; 90935; 93005; 93010; 93306; 94002; 94003; 94640; 94660; 96365; 96366; 96368; 96375; 96376; 99292; C9113; G0257; J0692; J1200; J1580; J1630; J1642; J1644; J1815; J2060; J2185; J2250; J2270; J2704; J2920; J3010; J3370; J3490; J7070; J7620; P9047; S0028; U0002; U0005